=== PATIENT | male | born 1965 | race Caucasian/White ===

== ENCOUNTER → 2016-12-02 | Outpatient (REF) | payer OTHER ==
[2016-12-02 12:55] LABS: ALBUMIN 3.9 GM/DL (3.2-5.2); ALBUMIN/GLOBULIN RATIO 1.05 (1.00-1.93); ALKALINE PHOSPHATASE 72 U/L (45-117); ALT/SGPT 169 U/L (12-78); ANION GAP 9 MEQ/L (8-16); AST/SGOT 74 U/L (15-37); BILIRUBIN,DIRECT 0.1 MG/DL (0.0-0.2); BILIRUBIN,TOTAL 0.4 MG/DL (0.2-1.0); BLOOD UREA NITROGEN 21 MG/DL (7-18); CALCIUM LEVEL 9.2 MG/DL (8.5-10.1); CARBON DIOXIDE LEVEL 26 MEQ/L (21-32); CHLORIDE LEVEL 105 MEQ/L (98-107); CHOLESTEROL LEVEL 132 MG/DL (<200); CREATININE FOR GFR 0.97 MG/DL (0.70-1.30); GLOMERULAR FILTRATION RATE > 60.0 (>56); GLUCOSE, FASTING 155 MG/DL (70-105); POTASSIUM SERUM 4.7 MEQ/L (3.5-5.1); SODIUM LEVEL 140 MEQ/L (136-145); TOTAL PROTEIN 7.6 GM/DL (6.4-8.2); TRIGLYCERIDES LEVEL 181 MG/DL (<150)
== END ==
LOC: M LABDRWAD 12:13
PROVIDERS: ATTEND Physician Assistant Medical
DX: E11.9 Type 2 diabetes mellitus without complications (principal); E78.2 Mixed hyperlipidemia

== ENCOUNTER → 2016-12-02 | Outpatient (REF) | payer OTHER ==
[2016-12-03 14:17] LABS: PSA TOTAL 0.5 ng/mL (0.0-4.0)
== END ==
LOC: M LABDRWAD 12:14
PROVIDERS: ATTEND Nurse Practitioner Family
DX: Z12.5 Encounter for screening for malignant neoplasm of prostate (principal)

== ENCOUNTER → 2017-03-31 | Outpatient (CLI) | payer BC, OTHER ==
--- NOTE | 2017-04-01 10:50 | SLEEPCENT ---
DATE OF STUDY: 03/31/2017 ORDERED BY: Georgette Leija NP Nocturnal polysomnography was performed for evaluation of sleep physiology in this patient with a history of excessive somnolence and nonrestorative sleep. 7 hours and 59 minutes of data were reviewed. There were 360 minutes of sleep identified. Sleep latency was prolonged at 41 minutes. Rapid eye movement (REM) latency was short at 42 minutes. Sleep architecture showed fragmentation. Progression was reasonably well maintained. There were 4 REM periods appreciated. Overall sleep efficiency was 75.9%. The patient's electrocardiogram (EKG) showed a sinus rhythm with an average heart rate of 78 beats per minute. Electroencephalogram (EEG) showed reasonably normal waveforms for awake and sleep. There were 242 respiratory events identified of 10 seconds in duration or greater for an apnea-hypopnea index of 40.3, 63 of these events were central in nature, the remaining were obstructive. The events were not related to sleep stage nor body posture. Arousals from respiratory events occurred 14.8 times per hour and oxygen desaturations were seen into the low 80s. There was minimal activity in the limb EMG and remaining measures of sleep physiology were normal. IMPRESSION: Obstructive sleep apnea syndrome (G47.33), apnea-hypopnea index 40.3. RECOMMENDATION: The patient should be encouraged to return to the sleep disorder center for pressure therapy. In the interim, alcohol and sedative avoidance should be practiced and caution exercised during the operation of motor vehicles.
== END ==
LOC: M SLEEP 19:38
PROVIDERS: ATTEND Nurse Practitioner Adult Health
DX: G47.30 Sleep apnea, unspecified (principal)

== ENCOUNTER → 2017-05-02 | Outpatient (CLI) | payer BC, OTHER ==
--- NOTE | 2017-05-06 23:46 | SLEEPCENT ---
DATE OF PROCEDURE: 05/02/2017 ORDERED BY: Georgette Leija Nocturnal polysomnography was performed for the titration of pressure therapy in this patient with obstructive sleep apnea syndrome, apnea-hypopnea index of 40.3. For testing, the patient was fit with a [employer] Simplus full face mask of medium size, 4 cm of water pressure were applied to the circuit and the lights were extinguished. 7 hours and 59 minutes of data were reviewed. There were 288 minutes of sleep identified. Sleep latency was prolonged at 53 minutes. Rapid eye movement (REM) latency was prolonged at 297 minutes. Sleep architecture improved late in the study with one REM period. Overall sleep efficiency was 61%. EKG showed a sinus rhythm with an average heart rate of 75 beats per minute. EEG showed reasonably normal waveforms for awake and sleep. Respiratory events were found best palliated with a continuous positive airway pressure (CPAP) of 8. CPAP tolerance was reasonably good. There was some limb activity, but arousals from limb events were few. IMPRESSION: Obstructive sleep apnea syndrome (G47.33). RECOMMENDATION: Nightly use of pressure therapy 8 cm of water. Copy To: Dr. Liu
== END ==
LOC: M SLEEP 19:19
PROVIDERS: ATTEND Nurse Practitioner Adult Health
DX: G47.33 Obstructive sleep apnea (adult) (pediatric) (principal)

== ENCOUNTER → 2017-11-25 | Outpatient (REF) | payer OTHER ==
[2017-11-25 12:48] LABS: ANION GAP 8 MEQ/L (8-16); BLOOD UREA NITROGEN 19 MG/DL (7-18); CALCIUM LEVEL 9.8 MG/DL (8.5-10.1); CARBON DIOXIDE LEVEL 27 MEQ/L (21-32); CHLORIDE LEVEL 104 MEQ/L (98-107); CREATININE FOR GFR 0.88 MG/DL (0.70-1.30); GLOMERULAR FILTRATION RATE > 60.0 (>56); GLUCOSE, FASTING 218 MG/DL (70-100); SODIUM LEVEL 139 MEQ/L (136-145)
[2017-11-25 12:52] LABS: POTASSIUM SERUM 5.4 MEQ/L (3.5-5.1)
[2017-11-25 13:18] LABS: MAU/CREAT RATIO 22.7 MCG/MG (0.0-30.0)
== END ==
LOC: M LABDRWAD 12:22
DX: E11.9 Type 2 diabetes mellitus without complications (principal)
CPT/HCPCS: 82043

== ENCOUNTER → 2018-03-27 | Outpatient (REF) | payer OTHER ==
[2018-03-27 13:12] LABS: ALBUMIN 4.2 GM/DL (3.2-5.2); ALBUMIN/GLOBULIN RATIO 0.98 (1.00-1.93); ALKALINE PHOSPHATASE 92 U/L (45-117); ALT/SGPT 233 U/L (12-78); ANION GAP 12 MEQ/L (8-16); AST/SGOT 143 U/L (7-37); BILIRUBIN,TOTAL 0.5 MG/DL (0.2-1.0); BLOOD UREA NITROGEN 14 MG/DL (7-18); CALCIUM LEVEL 9.5 MG/DL (8.5-10.1); CARBON DIOXIDE LEVEL 26 MEQ/L (21-32); CHLORIDE LEVEL 101 MEQ/L (98-107); CHOLESTEROL LEVEL 185 MG/DL (<200); CHOLESTEROL RISK RATIO 4.743 (<5); CREATININE FOR GFR 0.94 MG/DL (0.70-1.30); GLOMERULAR FILTRATION RATE > 60.0 (>56); GLUCOSE, FASTING 167 MG/DL (70-100); HDL CHOLESTEROL 39 MG/DL (>40); LDL CHOLESTEROL 100.4 MG/DL (<100); NON-HDL-C 146 MG/DL; POTASSIUM SERUM 5.1 MEQ/L (3.5-5.1); SODIUM LEVEL 139 MEQ/L (136-145); TOTAL PROTEIN 8.5 GM/DL (6.4-8.2); TRIGLYCERIDES LEVEL 228 MG/DL (<150)
[2018-03-27 15:03] LABS: ESTIMATED AVERAGE GLUCOSE 174 MG/DL (60-110); HEMOGLOBIN A1c 7.7 %
== END ==
LOC: M LAB REF 12:18
DX: E11.9 Type 2 diabetes mellitus without complications (principal); E78.2 Mixed hyperlipidemia
CPT/HCPCS: 80053

== ENCOUNTER → 2018-06-17 | Outpatient (CLI) | payer OTHER ==
[2018-06-17 19:27] LABS: ESTIMATED AVERAGE GLUCOSE 217 MG/DL (60-110); HEMOGLOBIN A1c 9.2 %
[2018-06-19 14:19] LABS: PSA TOTAL 0.4 ng/mL (0.0-4.0)
== END ==
LOC: M ADAMS 17:22
DX: Z12.5 Encounter for screening for malignant neoplasm of prostate (principal); E11.9 Type 2 diabetes mellitus without complications
CPT/HCPCS: 83036

== ENCOUNTER → 2018-09-18 | Outpatient (REF) | payer OTHER | LOC: M LABDRWAD 12:46 | PROVIDERS: ATTEND Nurse Practitioner Family | DX: E11.9 Type 2 diabetes mellitus without complications (principal) ==

== ENCOUNTER 2018-12-19 17:26 | Inpatient (IN) | payer BC, OTHER ==
[~2018-12-19] VITALS: Ht 167.6 cm; Wt 104.5 kg
[2018-12-19] MEDS ORDERED: ISOVUE-370 76% 100ML VIAL (Q9967) As Ordered ONE (17:38)
[2018-12-19] MEDS ORDERED: IRBE150T12 PO (17:41)
[2018-12-19] MEDS ORDERED: METF-699 PO (17:41)
[2018-12-19] MEDS ORDERED: SIMV20TA2 PO (17:41)
[2018-12-19] MEDS ORDERED: GLIP10TA6 PO (17:41)
[2018-12-19] MEDS ORDERED: NORV5TAB PO (17:41)
[2018-12-19] MEDS ORDERED: BYST5TAB2 PO (17:41)
[2018-12-19] MEDS ORDERED: PARO40TA3 PO (17:41)
[2018-12-19 17:42] LABS: BASO # 0.1 10^3/uL (0.0-0.2); BASO % 0.6 % (0.0-1.0); EOS # 0.2 10^3/uL (0.0-0.50); EOS % 1.1 % (0.0-3.0); HEMATOCRIT 35.8 % (42.0-52.0); HEMOGLOBIN 11.7 g/dl (13.5-17.5); LYMPH # 4.1 10^3/uL (1.5-4.5); LYMPH % 18.8 % (24.0-44.0); MEAN CORPUSCULAR HEMOGLOBIN 31.9 pg (27.0-33.0); MEAN CORPUSCULAR HGB CONC 32.7 g/dl (32.0-36.5); MEAN CORPUSCULAR VOLUME 97.5 fl (80.0-96.0); MONO # 1.6 10^3/uL (0.0-0.8); MONO % 7.3 % (0.0-5.0); NEUTROPHILS # 15.3 10^3/uL (1.8-7.7); PLATELET COUNT, AUTOMATED 239 10^3/uL (150-450); RED BLOOD COUNT 3.67 10^6/uL (4.30-6.10); WHITE BLOOD COUNT 21.5 10^3/uL (4.0-10.0)
[2018-12-19] MEDS ORDERED: NS 1,000 ML IV ONE ×2 (17:45)
[2018-12-19 17:49] LABS: ABG pH (ARTERIAL) 7.285 UNITS (7.350-7.450)
[2018-12-19 17:51] LABS: ABG BASE EXCESS -9.2 (-2.0-2.0); ABG HCO3 16.6 MEQ/L (22.0-26.0); ABG O2 SATURATION 98.3 % (95.0-99.0); ABG PARTIAL PRESSURE CO2 35.8 mmHg (35.0-45.0); ABG PARTIAL PRESSURE O2 130.2 mmHg (75.0-100.0); ABG STANDARD HCO3 17.1 MEQ/L (22.0-26.0); ABG TOTAL CO2 17.7 MEQ/L (22.0-29.0)
[2018-12-19 17:52] LABS: INR 1.06; PROTHROMBIN TIME 13.9 SECONDS (12.1-14.4)
[2018-12-19 17:53] LABS: PARTIAL THROMBOPLASTIN TIME 25.2 SECONDS (25.4-37.6)
--- NOTE | 2018-12-19 18:02 | REP ---
Clinical: Trauma . Comparison: None . Findings: The ventricles, sulci, and cisterns are normal in position and appearance. Velazco-white differentiation is maintained. No acute intracranial hemorrhage, mass/mass effect, pathology or trauma/injury. No evidence for acute infarction. No extra-axial fluid collection. Calvarium is intact. Paranasal sinuses and mastoid air cells are clear. Impression: No evidence for acute intracranial pathology or trauma/injury. Electronically Signed by Richard Anguiano MD 12/19/2018 05:53 P
--- NOTE | 2018-12-19 18:04 | REP ---
Clinical: Trauma. Technique: Axial noncontrast images from the skull base to the thoracic inlet with coronal and sagittal re-formations. Findings: Alignment is maintained and there is no evidence for acute fracture / compression injury or subluxation. Early moderate multilevel degenerative changes include early osteophyte formation with endplate sclerosis and minimal disc space narrowing primarily involving C2-3, and C5-6. Spinal canal is patent. Posterior elements and spinous processes are intact. Paravertebral soft tissues are normal. Impression: Early moderate multilevel degenerative changes. No acute fracture / compression injury or subluxation. Electronically Signed by Richard Anguiano MD 12/19/2018 05:55 P
[2018-12-19 18:07] LABS: ALBUMIN 3.4 GM/DL (3.2-5.2); ALT/SGPT 152 U/L (12-78); AMYLASE 52 U/L (25-115); BILIRUBIN,DIRECT < 0.1 MG/DL (0.0-0.2); BILIRUBIN,TOTAL 0.3 MG/DL (0.2-1.0); BLOOD UREA NITROGEN 23 MG/DL (7-18); CALCIUM LEVEL 8.9 MG/DL (8.5-10.1); CARBON DIOXIDE LEVEL 22 MEQ/L (21-32); CHLORIDE LEVEL 97 MEQ/L (98-107); CPK CREATINE PHOSPHOKINASE 312 U/L (39-308); CREATININE FOR GFR 1.84 MG/DL (0.70-1.30); ETHYL ALCOHOL (ETHANOL) < 0.003 % (0.000-0.010); GLOMERULAR FILTRATION RATE 41.2 (>56); GLUCOSE, FASTING 657 MG/DL (70-100); LIPASE 300 U/L (73-393); MB/CK RELATIVE INDEX 1.83 (< OR =4); POTASSIUM SERUM 4.7 MEQ/L (3.5-5.1); SODIUM LEVEL 134 MEQ/L (136-145); TOTAL PROTEIN 6.4 GM/DL (6.4-8.2); TROPONIN I < 0.02 NG/ML (< 0.10)
[2018-12-19] MEDS ORDERED: HumuLIN R (REGULAR) INSULIN (NovoLIN R) **100U/ML** PER UNIT As Ordered ONE ×2 (18:15→19:40)
[2018-12-19] MEDS ORDERED: fentaNYL 100 MCG/2 ML INJECTION (J3010) IV ONE (18:15)
[2018-12-19] MEDS ORDERED: HumuLIN R (REGULAR) INSULIN (NovoLIN R) **100U/ML** PER UNIT IV ONE (18:15)
--- NOTE | 2018-12-19 18:17 | REP ---
Clinical: Trauma. Technique: Axial contrast enhanced images from the thoracic inlet to the upper abdomen coronal and sagittal re-formations using 100 ml Isovue 370 intravenous contrast material. Findings: Multiple fractures of the left third through tenth rib are identified. A small left pleural reaction is noted without pneumothorax along with trace early bibasilar atelectasis. Mediastinum demonstrates normal thoracic aorta, pulmonary vasculature and heart/pericardium without evidence for injury. Atherosclerotic disease to the coronary arteries noted. No cardiomegaly or pericardial effusion. No adenopathy. Limited upper abdomen demonstrates a fractured spleen with moderate visualized hemoperitoneum. Impression: 1. Left third to tenth rib fractures with multiple ribs fracture in multiple places. No associated pneumothorax. 2. Minimal bibasilar atelectasis and small left pleural reaction. 3. Upper abdomen demonstrates fractured spleen and moderate hemoperitoneum. Electronically Signed by Richard Anguiano MD 12/19/2018 06:08 P
[2018-12-19] MEDS ORDERED: ceFAZolin 1GM INJ (J0690 PER 500MG) As Ordered ONE (18:24)
--- NOTE | 2018-12-19 18:26 | REP ---
Clinical: Trauma. Technique: Axial contrast enhanced images from the lung bases to the pubic symphysis coronal and sagittal re-formations using 100 ml Isovue 370 intravenous contrast material. Findings: Left sixth through ninth rib fractures are identified with minimal basilar atelectasis. Grade 3 fractured spleen is appreciated with arterial laceration and obvious extravasation of contrast. Moderate hemoperitoneum is appreciated. A small subcapsular hematoma is identified along the posterior aspect of the left kidney. Fatty infiltration to the liver without obvious injury. Pancreas, gallbladder, bilateral adrenal glands and right kidney appear relatively normal. 1.2 cm right renal hypodensity likely represents cyst. The enteric system is without obstruction or obvious acute injury and no evidence for acute inflammatory process. Normal terminal ileum and appendix are identified in the right lower quadrant. Pelvis demonstrates normal bladder and age appropriate prostate/seminal vesicles. Abdominal aorta without evidence for injury or aneurysm/dissection. Fracture of the right L1 transverse process is identified along with the above mentioned left rib fractures. Impression: 1. Fractured spleen with arterial laceration and contrast extravasation along with moderate hemoperitoneum. 2. Small subcapsular hematoma along the posterior aspect of the left kidney. 3. Right L1 transverse process fracture and multiple multipartite left rib fractures. Electronically Signed by Richard Anguiano MD 12/19/2018 06:16 P
[2018-12-19] MEDS ORDERED: SUCCINYLCHOLINE 100 MG/5 ML SYRINGE (J0330) As Ordered ONE (18:27)
[2018-12-19] MEDS ORDERED: ROCURONIUM BROMIDE 50 MG/5 ML VIAL As Ordered ONE ×2 (18:27→20:19)
[2018-12-19] MEDS ORDERED: LIDOCAINE 2% INJ 100 MG/5 ML SDV (FOR ANES.) As Ordered ONE (18:27)
[2018-12-19] MEDS ORDERED: METOCLOPRAMIDE INJ 10MG/2ML VIAL (J2765) As Ordered ONE (18:27)
[2018-12-19] MEDS ORDERED: ONDANSETRON 4MG/2ML VIAL (J2405) As Ordered ONE ×2 (18:27→18:53)
[2018-12-19] MEDS ORDERED: MIDAZOLAM INJ 2 MG/2 ML VIAL (J2250) As Ordered ONE ×6 (18:27→23:48)
[2018-12-19] MEDS ORDERED: PROPOFOL 200 MG/20 ML VIAL As Ordered ONE (18:27)
[2018-12-19] MEDS ORDERED: fentaNYL 250 MCG/5 ML INJECTION (J3010) As Ordered ONE (18:27)
[2018-12-19] MEDS ORDERED: HEPARIN SOD (PORCINE) 5000 UNITS/ML VIAL As Ordered ONE ×2 (18:28→19:16)
[2018-12-19] MEDS ORDERED: TRUL0.5I SC (18:29)
[2018-12-19] MEDS ORDERED: ECOT81TA5 PO (18:29)
[2018-12-19] MEDS ORDERED: GLIP10TA18 PO (18:29)
--- NOTE | 2018-12-19 18:39 | HPEPDOC ---
General Surgery H&P Date of Admission Dec 19, 2018 Attending Physician: ELLIE MOELLER MD History and Physical CHIEF COMPLAINT: Trauma, fall from a ladder HISTORY OF PRESENT ILLNESS: Patient is brought emergently to our ER after falling from a ladder on his left side while cutting a tree. Event was witnessed. No loss of consciousness. patient complains of left side abdominal and chest pain. ALLERGIES: Please see below. HOME MEDICATIONS: Please see below. PAST MEDICAL HISTORY: 1. Diabetes. 2. hypercholesterolemia 3. Obstructive sleep apnea on CPAP. PAST SURGICAL HISTORY: 1. Tooth extractions PERSONAL/SOCIAL HISTORY: Patient quit smoking several years ago. REVIEW OF SYSTEMS: Patient was on his usual state of health prior to the trauma. PHYSICAL EXAMINATION: VITAL SIGNS: Please see below. GENERAL APPEARANCE: Pale-appearing, diaphoretic clammy skin. Awake, alert, oriented. HEENT: Pale palpebral conjunctiva lips dry.. CHEST: Shallow respiratory efforts. No flail chest. Faint chest wall contusion. NECK: Supple. No thyromegaly. No lymphadenopathies. No tenderness at the midline LUNGS: Lung sounds are clear to auscultation bilaterally. No wheezing appreciated. HEART: Mild tachycardia, regular rhythm ABDOMEN: Moderately rounded, quiet, generalized tenderness most prominent on the left side SKIN: Cool, , clammy EXTREMITIES: Small scattered left arm bruising and contusion NEUROLOGICAL: Awake. Patient aware of the events answers appropriately. Moves all extremities equally. ANCILLARIES: . LABORATORY DATA: Please see below. MICROBIOLOGY: Please see below. IMAGING: CT head No evidence for acute intracranial pathology or trauma/injury. CT C-spine Early moderate multilevel degenerative changes. No acute fracture / compression injury or subluxation. CT chest 1. Left third to tenth rib fractures with multiple ribs fracture in multiple places. No associated pneumothorax. 2. Minimal bibasilar atelectasis and small left pleural reaction. 3. Upper abdomen demonstrates fractured spleen and moderate hemoperitoneum. CT abdomen and pelvis 1. Fractured spleen with arterial laceration and contrast extravasation along with moderate hemoperitoneum. 2. Small subcapsular hematoma along the posterior aspect of the left kidney. 3. Right L1 transverse process fracture and multiple multipartite left rib fractures. IMPRESSION AND PLAN: Blunt Trauma from fall from ladder hemodynamic instability from ruptured spleen with evidence of active extravasation small subcapsular left renal contusion multiple rib fractures Patient needs to be brought to the OR emergently for exploratory laparotomy given his hemodynamic instability, evidence of active arterial bleeding on CT. Given his presentation, the degree of damage in the spleen. The radiologist read this as grade 3 laceration though I could not see any further piece left except the hilum of the spleen. There are multiple points of active extra visitation which arterial bleeding and a lot of of hemoperitoneum, I do not think he qualifies for conservative nonoperative therapy. He is being given blood as the operating room is preparing for surgery. Have advised his that there is a small possibility that he may need prolonged ventilation depending on how he is doing hemodynamically given also the presence of multiple rib fractures. Certainly the most likely will need some input and 8 from our motor analyst crystal lubin on.. Vital Signs Vital Signs Date Time Temp Pulse Resp B/P (MAP) Pulse Ox O2 Delivery O2 Flow Rate FiO2 12/19/18 18:07 96.1 12/19/18 17:28 109 16 95/58 98 Nasal Cannula 2.0 Laboratory Data Labs 24H Laboratory Tests 2 12/19/18 17:32: Immature Granulocyte % (Auto) 1.2, White Blood Count 21.5H, Red Blood Count 3.67L, Hemoglobin 11.7L, Hematocrit 35.8L, Mean Corpuscular Volume 97.5H, Mean Corpuscular Hemoglobin 31.9, Mean Corpuscular Hemoglobin Concent 32.7, Red Cell Distribution Width 12.0, Platelet Count 239, Neutrophils (%) (Auto) 71.0H, Lymphocytes (%) (Auto) 18.8L, Monocytes (%) (Auto) 7.3H, Eosinophils (%) (Auto) 1.1, Basophils (%) (Auto) 0.6, Neutrophils # (Auto) 15.3H, Lymphocytes # (Auto) 4.1, Monocytes # (Auto) 1.6H, Eosinophils # (Auto) 0.2, Basophils # (Auto) 0.1, Nucleated Red Blood Cells % (auto) 0.0, Prothrombin Time 13.9, Prothromb Time International Ratio 1.06, Activated Partial Thromboplast Time 25.2L, Anion Gap 15, Glomerular Filtration Rate 41.2L, Calcium Level 8.9, Aspartate Amino Transf (AST/SGOT) 110H, Alanine Aminotransferase (ALT/SGPT) 152H, Alkaline Phosphatase 78, Total Bilirubin 0.3, Direct Bilirubin < 0.1, Total Creatine Kinase 312H, Creatine Kinase MB 6.0H, Creatine Kinase MB Relative Index 1.83, Troponin I < 0.02, Total Protein 6.4, Albumin 3.4, Albumin/Globulin Ratio 1.13, Amylase Level 52, Lipase 300, Ethyl Alcohol Level < 0.003 12/19/18 17:40: Blood Gas Bicarbonate Standard 17.1L, Arterial Blood pH 7.285L, Arterial Blood Partial Pressure CO2 35.8, Arterial Blood Partial Pressure O2 130.2H, Arterial Blood Total CO2 17.7L, Arterial Blood HCO3 16.6L, Arterial Blood Base Excess - 9.2L, Arterial Blood Oxygen Saturation 98.3 CBC/BMP Laboratory Tests 12/19/18 17:32 Red Blood Count 3.67 L, Mean Corpuscular Volume 97.5 H, Mean Corpuscular Hemoglobin 31.9, Mean Corpuscular Hemoglobin Concent 32.7, Red Cell Distribution Width 12.0, Neutrophils (%) (Auto) 71.0 H, Lymphocytes (%) (Auto) 18.8 L, Monocytes (%) (Auto) 7.3 H, Eosinophils (%) (Auto) 1.1, Basophils (%) (Auto) 0.6, Neutrophils # (Auto) 15.3 H, Lymphocytes # (Auto) 4.1, Monocytes # (Auto) 1.6 H, Eosinophils # (Auto) 0.2, Basophils # (Auto) 0.1 Home Medications Scheduled Amlodipine Besylate (Norvasc) 5 Mg Tablet, 5 MG PO DAILY, (Reported) Amoxicillin/Potassium Clav (Amox-Clav ER 1,000-62.5 mg Tab) 1 Each Tab.er.12h, 1 TAB PO BID Aspirin (Ecotrin) 81 Mg Tablet.dr, 81 MG PO DAILY, (Reported) Dulaglutide (Trulicity) 1.5 Mg/0.5 Ml Pen.injctr, 1.5 MG SC QWEEK, (Reported) MONDAYS Glipizide (Glipizide ER) 10 Mg Tab.er.24, 10 MG PO DAILY, (Reported) Insulin Detemir (Levemir) 100 Unit/1 Ml Vial, 10 UNITS SC QHS Irbesartan (Irbesartan) 150 Mg Tablet, 150 MG PO QHS, (Reported) Metformin HCl (Metformin ER Gastric) 500 Mg [id number], 500 MG PO BID, (Reported) Nebivolol HCl (Bystolic) 5 Mg Tablet, 5 MG PO DAILY, (Reported) Paroxetine HCl (Paroxetine) 40 Mg Tablet, 40 MG PO DAILY, (Reported) Simvastatin (Simvastatin) 20 Mg Tablet, 20 MG PO QHS, (Reported) Scheduled PRN Ketorolac Tromethamine (Ketorolac Tromethamine) 10 Mg Tablet, 1 TAB PO Q6HP PRN for pain Oxycodone/Acetaminophen (Oxycodone-Acetaminophen 5-325) 1 Each Tablet, 1-2 TAB PO Q4HP PRN for SEVERE PAIN (PS 8-10) Allergies Coded Allergies: No Known Allergies (Unverified , 12/19/18) A-FIB/CHADSVASC A-FIB History Current/History of A-Fib/PAF?: No Current PO Anticoag Therapy: No ELLIE MOELLER MD Dec 19, 2018 18:39
[2018-12-19] MEDS ORDERED: dexameTHASONE 4 MG/ML 1ML VIAL (J1100) As Ordered ONE (18:53)
[2018-12-19] MEDS ORDERED: VASOPRESSIN INJ 20 UNITS/ML VIAL As Ordered ONE (19:17)
[2018-12-19] MEDS ORDERED: PHENYLephrine HCL 500 MCG/5 ML (100MCG/ML) SYRINGE (J2370) As Ordered ONE (20:47)
[2018-12-19] MEDS ORDERED: LR 1,000 ML IV SCH ×2 (21:27→23:00)
--- NOTE | 2018-12-19 21:27 | POST-OPPD ---
Postoperative Procedure Note Date Of Procedure: Dec 19, 2018 PREOPERATIVE DIAGNOSIS: traumatic fall, splenic rupture POSTOPERATIVE DIAGNOSIS: same FINDINGS: moderate hemoperitoneum, spleen broken in 3 areas PROCEDURE: Exploratory Laparotomy, Splenectomy SURGEON: Patrick Novoa MD CENTRAL STERILE TECHNICIAN: piotr Altamirano (MSIII) ANESTHESIA: General Anesthesia SPECIMENS: spleen ESTIMATED BLOOD LOSS: 2000 mL REPLACED: 3500 mL IVF, 4 u prbc, 1 u FFP, 441 mLs from cell saver DRAINS: 19 Joshua Drain to splenic bed COMPLICATIONS: remains intubated POSTOPERATIVE CONDITION: stable but critical URINE OUTPUT: 350 mLs PATRICK NOVOA MD Dec 19, 2018 21:27
[2018-12-19] MEDS ORDERED: ONDANSETRON 4MG/2ML VIAL (J2405) IV PRN ×2 (21:30→23:00)
[2018-12-19] MEDS ORDERED: MORPHINE 4 MG/ML 1ML VIAL/SYRINGE (J2270) IV PRN ×2 (21:30)
[2018-12-19] MEDS ORDERED: PROPOFOL 1,000 MG/100 ML VIAL As Ordered ONE (21:33)
[2018-12-19 21:35] VITALS: O2SAT 99
[2018-12-19] MEDS: PROPOFOL 1,000 MG in APPROPRIATE DILUENT 1 EA IV SCH (21:45)
[2018-12-19] MEDS ORDERED: HumaLOG INSULIN (NovoLOG) PER UNIT As Ordered ONE (21:46)
[2018-12-19 21:53] LABS: ABG BASE EXCESS -5.3 (-2.0-2.0); ABG HCO3 22.3 MEQ/L (22.0-26.0); ABG O2 SATURATION 97.9 % (95.0-99.0); ABG PARTIAL PRESSURE CO2 52.4 mmHg (35.0-45.0); ABG PARTIAL PRESSURE O2 113.1 mmHg (75.0-100.0); ABG STANDARD HCO3 20.1 MEQ/L (22.0-26.0); ABG TOTAL CO2 23.9 MEQ/L (22.0-29.0); ABG pH (ARTERIAL) 7.246 UNITS (7.350-7.450)
[2018-12-19 21:56] LABS: INR 1.19; PROTHROMBIN TIME 15.3 SECONDS (12.1-14.4)
[2018-12-19 21:57] LABS: FIBRINOGEN 214 MG/DL (221-452); PARTIAL THROMBOPLASTIN TIME 20.9 SECONDS (25.4-37.6)
[2018-12-19] MEDS ORDERED: fentaNYL 100 MCG/2 ML INJECTION (J3010) As Ordered ONE (22:03)
[2018-12-19] MEDS: MIDAZOLAM INJ 2 MG/2 ML VIAL (J2250) IV PRN ×3 (22:12→22:45)
[2018-12-19 22:16] LABS: D-DIMER QUANT > 4000 ng/ml (<500)
[2018-12-19] MEDS ORDERED: MEPERIDINE INJ 25 MG/ML VIAL (J2175) IV PRN (23:00)
[2018-12-19] MEDS ORDERED: PERCOCET 5MG/325MG TAB PO PRN (23:00)
[2018-12-19] MEDS ORDERED: fentaNYL 100 MCG/2 ML INJECTION (J3010) IV PRN (23:00)
[2018-12-19] MEDS ORDERED: METOCLOPRAMIDE INJ 10MG/2ML VIAL (J2765) IV PRN (23:00)
[2018-12-20] VITALS (77 sets, daily range): BP systolic 63–168; BP diastolic 39–82; O2SAT 93
[2018-12-20] MEDS: MIDAZOLAM INJ 2 MG/2 ML VIAL (J2250) IV PRN ×5 (00:05→22:00)
[2018-12-20] MEDS: INSULIN HUMAN REGULAR 100 UNITS in NS 99 ML IV SCH ×4 (00:14→21:40)
[2018-12-20] MEDS ORDERED: PHENYLEPHRINE INJ 10MG/ML VIAL (J2370) As Ordered ONE (00:15)
[2018-12-20 00:23] LABS: ACETONE/KETONE 2.92 MG/DL (<2.81); CALCIUM LEVEL 9.6 MG/DL (8.5-10.1); CREATININE FOR GFR 1.57 MG/DL (0.70-1.30); GLOMERULAR FILTRATION RATE 49.4 (>56); MAGNESIUM LEVEL 2.1 MG/DL (1.8-2.4); PHOSPHORUS LEVEL 6.1 MG/DL (2.5-4.9)
[2018-12-20 00:24] LABS: ABG BASE EXCESS -7.4 (-2.0-2.0); ABG HCO3 19.1 MEQ/L (22.0-26.0); ABG PARTIAL PRESSURE CO2 42.5 mmHg (35.0-45.0); ABG PARTIAL PRESSURE O2 101.9 mmHg (75.0-100.0); ABG STANDARD HCO3 18.5 MEQ/L (22.0-26.0); ABG TOTAL CO2 20.4 MEQ/L (22.0-29.0); ABG pH (ARTERIAL) 7.271 UNITS (7.350-7.450)
[2018-12-20] MEDS: NOREPINEPHRINE BITARTRATE 8 MG in D5W 492 ML IV SCH ×2 (00:52→06:16)
[2018-12-20] MEDS ORDERED: VASOPRESSIN INJ 20 UNITS/ML VIAL As Ordered ONE (01:02)
[2018-12-20] MEDS: NS 1,000 ML IV SCH ×3 (01:13→11:43)
[2018-12-20] MEDS: PIPERACILLIN/TAZOBACTAM SOD 3.375 GM in D5W MINI-BAG PLUS 50 ML IV SCH ×3 (01:13→15:36)
[2018-12-20] MEDS: PANTOPRAZOLE 40MG INJ (PROTONIX) (C9113) IV SCH ×2 (01:28→20:51)
[2018-12-20] MEDS: INSULIN IV RATE CHANGE DOCUMENTATION ML/HR XX SCH ×9 (01:32→22:52)
[2018-12-20] MEDS: fentaNYL 100 MCG/2 ML INJECTION (J3010) IV PRN ×4 (01:52→20:53)
[2018-12-20] MEDS ORDERED: NOREPINEPHRINE 4 MG/4 ML AMP ONE (02:13)
[2018-12-20] MEDS: PROPOFOL 1,000 MG in APPROPRIATE DILUENT 1 EA IV SCH ×5 (03:18→20:23)
[2018-12-20] MEDS: HEPARIN SOD (PORCINE) 5000 UNITS/ML VIAL SC SCH ×3 (05:28→21:13)
[2018-12-20] MEDS: VASOPRESSIN INJ 20 UNITS in NS 499 ML IV SCH ×2 (05:28→11:30)
[2018-12-20 05:45] LABS: BASO % 0.1 % (0.0-1.0); HEMATOCRIT 34.2 % (42.0-52.0); HEMOGLOBIN 11.6 g/dl (13.5-17.5); LYMPH # 1.5 10^3/uL (1.5-4.5); LYMPH % 10.8 % (24.0-44.0); MEAN CORPUSCULAR HEMOGLOBIN 31.1 pg (27.0-33.0); MEAN CORPUSCULAR HGB CONC 33.9 g/dl (32.0-36.5); MEAN CORPUSCULAR VOLUME 91.7 fl (80.0-96.0); MONO # 1.5 10^3/uL (0.0-0.8); NEUTROPHILS # 10.8 10^3/uL (1.8-7.7); NEUTROPHILS % 77.6 % (36.0-66.0); PLATELET COUNT, AUTOMATED 135 10^3/uL (150-450); RED BLOOD COUNT 3.73 10^6/uL (4.30-6.10); WHITE BLOOD COUNT 13.9 10^3/uL (4.0-10.0)
[2018-12-20 06:04] LABS: ABG BASE EXCESS -5.6 (-2.0-2.0); ABG HCO3 19.6 MEQ/L (22.0-26.0); ABG O2 SATURATION 98.7 % (95.0-99.0); ABG PARTIAL PRESSURE O2 153.1 mmHg (75.0-100.0); ABG STANDARD HCO3 19.9 MEQ/L (22.0-26.0); ABG TOTAL CO2 20.7 MEQ/L (22.0-29.0); ABG pH (ARTERIAL) 7.341 UNITS (7.350-7.450)
[2018-12-20 06:13] LABS: BLOOD UREA NITROGEN 25 MG/DL (7-18); CALCIUM LEVEL 8.8 MG/DL (8.5-10.1); CARBON DIOXIDE LEVEL 23 MEQ/L (21-32); CHLORIDE LEVEL 108 MEQ/L (98-107); CREATININE FOR GFR 1.81 MG/DL (0.70-1.30); GLUCOSE, FASTING 307 MG/DL (70-100); SODIUM LEVEL 143 MEQ/L (136-145)
--- NOTE | 2018-12-20 06:35 | ROOPDOC ---
[facility] Report Of Operation Report of Operation DATE OF PROCEDURE: 12/19/18 PREOPERATIVE DIAGNOSIS: traumatic fall, splenic rupture POSTOPERATIVE DIAGNOSIS: same FINDINGS: moderate hemoperitoneum, spleen broken in 3 areas PROCEDURE: Exploratory Laparotomy, Splenectomy SURGEON: Patrick Novoa MD VIDEO GAMES STORYWRITER: piotr Altamirano (MSIII) ANESTHESIA: General Anesthesia SPECIMENS: spleen ESTIMATED BLOOD LOSS: 2000 mL REPLACED: 3500 mL IVF, 4 u prbc, 1 u FFP, 441 mLs from cell saver DRAINS: 19 Joshua Drain to splenic bed COMPLICATIONS: remains intubated POSTOPERATIVE CONDITION: stable but critical URINE OUTPUT: 350 mLs DESCRIPTION OF PROCEDURE: Patient is brought emergently to the operating room. He was hemodynamically labile. Hypotension on presentation to the ER from splenic rupture resulting from a fall roughly about 12 feet in height on his left side along with other injuries including multiple rib fractures. He received IV fluids as a bolus as well as blood transfusion seemed packed RBCs in the rapid transfuser with a good response hemodynamically. He is in a lot of pain. He received a dose of Ancef 2 g IV preoperatively for wound prophylaxis. He was brought to the operating room placed supine on the table, compression boots placed on his lower extremities for DVT prophylaxis. Gen. anesthesia was started. He was placed on vasopressors for pressure support we continued brisk IV fluid hydration as well as blood transfusions per our massive transfusion protocol. His abdomen was prepped and draped in usual sterile fashion. We paused for a surgical timeout using both pre-incision safety checklist to verify correct patient, procedure site and additional clinical information prior to beginning the procedure. With everybody aware, I made a generous midline incision starting from the just below the xiphisternum to about 4-5 cm below the umbilicus to cystoscopically deepened through to the multiple areas of the abdomen including the subcutaneous tissue and anterior fascia. The posterior fascia and peritoneum was opened up under direct vision and enlarged throughout the whole of the skin incision. With entry into the abdomen gross blood was suctioned off using the Cell Saver. I quickly packed the left upper quadrant and maintained traction on the abdominal wall to act as a template for anesthesia to catch up hemodynamically. Once anesthesia was caught up we began our abdominal exploration. I have previously set up the Bookwalter were patient's upper abdomen. Self-retaining retractors were placed to help with visualization. I continued to place laparotomy packs into the left upper quadrant especially posteriorly to try to lift up the spleen into view. The patient has moderately thick omentum which was brought down. The gastrocolic ligament as well as the transverse colon was likewise brought down from the midline towards the splenic flexure enough to retracted away from view. I asked anesthesia to place a orogastric tube to decompress the stomach which was enlarged at this time. I didn't quickly try to work on the lower pole of the spleen freeing this up from its surrounding attachments posteriorly laterally and continued to change laparotomy packs and place it behind the spleen to lift it up on to a few. Once the lower pole was adequately mobilized I could view the spleen much better in the seems to have cracked in 3 places going towards the splenic hilum so the hilum itself seems to be intact. There were continues losing but no gross arterial bleeding at this time. I continued to work on the upper pole of the spleen freeing this up from its attachments towards the lateral abdominal wall as well as the diaphragm and the short gastrics as it goes near to the stomach. I encountered more bleeding at this time with some obvious bleeding from the within the spleen itself as well as from a blood vessel going towards the upper pole of the spleen. This was controlled with Cheyanne clamps. With the upper pole bleeding controlled I came back again to the lower pole has a try to free the posterior attachments of the spleen as well as its medial attachments to be able to get my hands around the hilum of the spleen. There was able to do this I cleared off the surrounding area and divided the splenic vessels in between hemostatic clamps as well as with the LigaSure device. The spleen was then removed. Copious irrigation was performed below for any obvious bleeding the clamp blood vessels were tied off with one Vicryl suture as well as large hemoclips. I then explored the rest of the abdomen there were no obvious injuries to the liver. I ran the small bowel from ligament of Treitz to the terminal ileum and found no bowel injury. I visualized the right colon, left colon, sigmoid colon and rectum and it did not find any obvious injuries to this area is. I was aware of a small contusion to the left kidney but there was no obvious enlarging hematoma on the left spleen. I then came back to the splenic bed. I sprayed Tisseel fibrin glue to the splenic bed and I left a 19 round Joshua drain coursing towards the splenic bed for postoperative monitoring. At this point patient has been hemodynamically improving. The abdomen was then closed using #1 double looped PDS in a running fashion. The saphenous tissue was irrigated and the skin was closed with dasha. The Joshua drain was secured to the skin with 2-0 silk Patient remain intubated. He was brought to the recovery room relatively hemodynamically stable. Attempt was brought out the Robert-Synephrine has been weaned off. He made some urine during the surgery but still looks concentrated. Counts of sponges and instruments were verified correct. PATRICK NOVOA MD Dec 20, 2018 06:35
[2018-12-20 06:39] LABS: PARTIAL THROMBOPLASTIN TIME 25.4 SECONDS (25.4-37.6)
[2018-12-20 06:43] LABS: INR 1.08; PROTHROMBIN TIME 14.1 SECONDS (12.1-14.4)
[2018-12-20 06:45] LABS: ALBUMIN 2.7 GM/DL (3.2-5.2); ALT/SGPT 166 U/L (12-78); BILIRUBIN,DIRECT < 0.1 MG/DL (0.0-0.2); BILIRUBIN,TOTAL 0.3 MG/DL (0.2-1.0); TOTAL PROTEIN 5.3 GM/DL (6.4-8.2)
--- NOTE | 2018-12-20 07:09 | REP ---
Clinical: Status post intubation. Comparison: 01/07/2006 Findings: Endotracheal tube 3.4 cm from the murtaza. Left subclavian catheter with tip in the SVC. Cardiac silhouette is normal. Minimal scattered atelectasis. Multiple left posterior rib fractures. Impression: ETT in satisfactory position. Trace scattered atelectasis. Electronically Signed by Richard Anguiano MD 12/20/2018 07:00 A
--- NOTE | 2018-12-20 07:38 | REP ---
Clinical: Foreign body. Technique: Single portable view of the abdomen and pelvis. Findings: A left upper quadrant surgical drain is appreciated. Surgical dasha are identified midline. Moderate amount of retained fecal material noted at the rectosigmoid. No foreign body. Impression: Postsurgical changes. No concerning foreign body identified. Electronically Signed by Richard Anguiano MD 12/20/2018 07:29 A
--- NOTE | 2018-12-20 07:44 | REP ---
Clinical: Status post intubation. Comparison: 12/19/2018 at 09:59 p.m. Findings: Endotracheal tube approximately 3 cm above the murtaza. Nasogastric tube courses into the left upper quadrant. Left basilar/retrocardiac atelectasis suggested. No obvious effusion. No obvious pneumothorax. Left posterior rib fractures again noted. Impression: 1. Endotracheal tube and nasogastric tube in satisfactory position. 2. Left lower lobe/retrocardiac atelectasis. Electronically Signed by Richard Anguiano MD 12/20/2018 07:36 A
[2018-12-20] MEDS: CHLORHEXIDINE GLUCONATE 0.12 % 15ML UDC (PERIDEX ORAL RINSE) MT SCH ×2 (07:51→20:51)
--- NOTE | 2018-12-20 08:49 | CCN ---
DATE: 12/20/2018 CRITICAL CARE PROGRESS NOTE The patient was seen and examined this morning during bedside rounds. Overnight the patient was persistently hypotensive, was requiring increasing doses of Levophed and was started on vasopressin in addition to the Levophed for blood pressure support. The patient also has been intermittently agitated overnight, is on propofol for sedation. He has been afebrile overnight. Peterson is in place and he is making urine. PHYSICAL EXAMINATION: Temperature 97.9, pulse 102, blood pressure 106/65, oxygen saturation (O2 sat) 98% on 30% FiO2. Intake (ins) 3.5 liters, output (outs) 2.6 liters. General: The patient is an obese male. He is intubated and sedated, is intermittently agitated on sedation but not following commands appropriately. HEENT: Normocephalic, atraumatic. Pupils are reactive to light. Mucous membranes are moist. Neck is supple. Trachea is midline. No jugular venous distention (JVD) appreciated. Cardiovascular: Regular rate and rhythm. Normal S1, S2. Unable to appreciate any murmurs. Pulmonary: Coarse ventilator breath sounds bilaterally. No wheezing or rhonchi. Abdomen is obese, soft, mildly distended. There is a midline incision with a dressing in place and a left-sided Akira-Talavera (KAITY) drain with sanguinous fluid. Extremities: There is no significant lower extremity edema bilaterally. LABORATORY DATA: WBC 13.9, hemoglobin 11.6, platelets 135. Chemistry: Sodium 143, potassium 5.0, chloride 108, bicarbonate 23, BUN 25, creatinine 1.81, glucose is 307. Repeat lactic acid trended down to 5.2, AST 151, ALT 166, alkaline phosphatase 42. ABG: pH 7.341, pCO2 of 37.0, pO2 of 153.1. Fibrinogen repeat increased to 336. INR is 1.08. IMAGING: Chest x-ray this morning shows endotracheal (ET) tube in position. There is a left internal jugular (IJ) subclavian line in place. There is evidence of some mild pulmonary vascular congestion and small left pleural effusion, and possible left lower lobe atelectasis. ASSESSMENT/PLAN: Mr. Razo is a 53-year-old male with a past medical history of diabetes, hyperlipidemia, obstructive sleep apnea (NGUYỄN) who presented after a fall from a ladder with landing on his left side. The patient complained of left-sided abdominal and chest pain. He was found to be in hemorrhagic shock secondary to a fractured spleen with an arterial laceration and evidence of hemoperitoneum. 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 Postoperatively the patient has been kept intubated and was transferred to the intensive care unit (ICU) for further management. The patient has been hypotensive despite adequate resuscitation, and he is requiring vasopressors for blood pressure support. Neurologic: Patient is intubated and is sedated. - Continue with propofol for sedation and would change morphine to fentanyl and continue with fentanyl as needed for pain control. - Would titrate sedation for a [place] of 2 to 3. - Will perform daily sedation vacations and weaning trials as tolerated. Cardiovascular: The patient presented initially with hemorrhagic shock secondary to bleeding from a splenic laceration. He received four units of packed red blood cells (PRBC) and one unit of fresh frozen plasma (FFP). His hemoglobin and hematocrit has remained stable, but the patient continues to be in shock and is requiring vasopressor support. - The patient is on max Levophed and vasopressin for his blood pressure. He was started on broad-spectrum antibiotics for possible septic shock. - His central venous oxygen saturation was checked and was normal at 84.6, making cardiogenic shock less likely and his CVP was elevated this morning - Will get ECHO given his persistent shock. - Lactic acid is trending down. Will continue to trend and monitor. Pulmonary: Patient was intubated for his exploratory laparotomy and was kept intubated post procedure. Pt has multiple left sided rib fractures but no evidence of pneumothorax - Continue with PRVC with vent settings of 430/23/30 and 5. - Continue with vent bundle care with head of bed elevation and chlorhexidine mouthwash. - Continue with daily ABGs and chest x-rays while intubated. cont monitor for pneumothorax - The patient's chest x-ray today shows evidence of some left pleural effusion and possible left lower lobe atelectasis. Would hold off on diuresis, however, given his hypotension. Will check a BNP. Infectious Disease: The patient had leukocytosis, possibly reactionary. However, he was also hypotensive, and there was concern for possible septic shock, possibly secondary to intraabdominal process given his hemoperitoneum. - Continue with Zosyn for now for broad spectrum antibiotics and follow up a procalcitonin. - Will followup blood culture results and will also check a sputum culture. Gastrointestinal (GI): The patient presented with acute splenic fracture with arterial laceration with hemoperitoneum as well as a left renal subcapsular hematoma. He is status post exploratory laparotomy and splenectomy on 12/19/2018. - Continue wound care and Akira-Talavera (KAITY) drain as per surgery. - He has some increased transaminitis likely due to his shock, which we will continue to monitor. - Orogastric (OG) tube is in place, continue to low wall intermittent suction and nothing by mouth for now. - The patient's hemoglobin and hematocrit has been stable. His fibrinogen has also improved. Will hold off on further blood products for now and continue to monitor for signs of active bleeding. Renal: Patient with acute kidney injury (CARIN) likely in the setting of his shock and hypovolemia. He is making urine and will continue to monitor his renal function and electrolytes. - Will renally dose medications. - hx DM and increased FSG. Patient had mildlt elevated beta hydroxybutyrate but no significant anion gap. cont with insulin drip and FSG checks and monitoring for development of an anion gap acidosis. Deep vein thrombosis (DVT) prophylaxis with heparin GI prophylaxis with Protonix. FULL CODE. Total critical care time spent not including any procedures: Approximately 40 minutes. MTDD
--- NOTE | 2018-12-20 08:58 | CR ---
DATE OF CONSULTATION: 12/19/2018 CRITICAL CARE CONSULT NOTE HISTORY OF PRESENT ILLNESS: History is obtained from the chart and collateral information. This patient is intubated and sedated and unable to provide a history. The patient is a 53 year-old male with a past medical history of diabetes, hyperlipidemia, obstructive sleep apnea (NGUYỄN) on continuous positive airway pressure (CPAP) who presented to the emergency department (ED) emergently after falling from a ladder when he was cutting a tree and landing on his left side. The event was witnessed and there was no reported loss of consciousness. On admission to the ED the patient was complaining of left-sided abdominal and chest pain. He was hypotensive on admission, appeared pale and diaphoretic. The patient was given a normal saline bolus. He was ordered for 2 liters and he was also started transfusion with packed red blood cells (PRBC) in the ED. The patient had imaging done of his CT abdomen and pelvis which showed evidence of a fractured spleen with arterial laceration and hemoperitoneum. He also had evidence of a left kidney subscapular hematoma. Given his hypotension and evidence of active arterial bleeding on CT the patient was taken to the operating room (OR) emergently for exploratory laparotomy. The patient had a splenectomy performed and postprocedure he was kept intubated and transferred to the intensive care unit (ICU) for further management. The patient received a total of 4 units of PRBC 1 unit of fresh frozen plasma (FFP) and an additional 1 liter normal saline bolus as well as started on maintenance fluids with lactated Ringer (LR) at 200 mL an hour. The patient also received 1 gram of cefazolin intraoperatively. In the recovery area the patient was initially on propofol as well as phenylephrine; however, he became more hypotensive and his sedation was held. The patient is opening his eyes and appears to be tracking, but is not fully following commands. PAST MEDICAL HISTORY and PAST SURGICAL HISTORY: 1. Diabetes. 2. Hyperlipidemia. 3. Obstructive sleep apnea (NGUYỄN) on continuous positive airway pressure (CPAP). 4. Tooth extractions SOCIAL HISTORY: The patient quit smoking several years ago. FAMILY HISTORY: Unable to obtain HOME MEDICATIONS: - Norvasc - glipizide - irbesartan - metformin - Bystolic - paroxetine - simvastatin ALLERGIES: No known drug allergies. PHYSICAL EXAMINATION: Vitals: Temperature is 96.5, pulse 89, respirations 22, blood pressure 95/65, O2 sat 100% on 50% FiO2. General: The patient is an obese male. He is intubated, not currently on sedation. He is opening eyes and tracking. HEENT: Normocephalic, atraumatic. Pupils are reactive to light bilaterally. Neck is supple. Trachea is midline and there is no palpable adenopathy. Cardiovascular: Regular rate and rhythm. Normal S1, S2. Unable to appreciate any murmurs. Pulmonary: There are coarse ventilated breath sounds bilaterally. No wheezes, no rhonchi or rales. There is mild crepitus noted on the left side of the chest. Abdomen is distended, soft. There is a dressing in the midline as well as a Akira-Talavera drain on the left side with sanguinous fluid in the bag. Extremities: There is no lower extremity edema noted bilaterally. Peripheral pulses are faint but palpable. LABORATORY DATA White blood cell (WBC) 21.5, hemoglobin 11.7, platelets was 239, repeat 1.38. Chemistry: Sodium is 134, potassium 4.7, chloride 97, bicarbonate 22, BUN 23, creatinine 1.84, glucose is 657, anion gap was 15, lactic acid 7.4, AST 110, ALT 152, alkaline phosphatase 78. Troponin was negative initially. Lipase is 300. INR is 1.19, fibrinogen 214. Arterial blood gas (ABG) was pH 7.246, pCO2 of 52.4, pO2 of 113.1. IMAGES: Head CT showed no evidence of acute intracranial pathology or trauma. Chest CT showed multiple fractures on his on his left side from the third to the tenth rib. There was no pneumothorax or pneumomediastinum noted. There is a small left pleural reaction and bibasilar atelectasis. CT abdomen and pelvis showed a fractured spleen with arterial laceration and arterial contrast extravasation with a moderate hemoperitoneum. There is a small subscapular hematoma on the posterior aspect of the left kidney. There is also a renal cyst. ASSESSMENT/PLAN: The patient is a 53-year-old male with a history of hypertension, diabetes, obstructive sleep apnea (NGUYỄN) who presented after a fall and landed on his left side and presented with complaints of left chest and abdominal pain. The patient was found to have multiple left-sided rib fractures but no evidence of pneumothorax or pneumomediastinum. He did have a left spleen laceration with arterial bleeding and was taken emergently to the operating room (OR) for exploratory laparotomy on 12/19/2018. The patient is status post splenectomy now and was kept intubated post surgery and transferred to the intensive care unit (ICU) for further management. Postoperatively the patient was hypotensive. He was initially on phenylephrine and then change to Levophed for additional blood pressure support. He did receive 4 units of packed red blood cells (PRBC) as well as 1 unit of fresh frozen plasma. Neuro: The patient is intubated and sedated. - Would continue with propofol for sedation and target a [place] of 2 to 3. - change morphine to fentanyl given renal dysfunction and cont prn dosing - Will perform a daily sedation vacation and weaning trials as tolerated. Cardiovascular: Patient with a history of hypertension. His initial troponins were negative. The patient was in hypovolemic shock secondary to bleeding from his splenic laceration. He was volume resuscitated with 4 units of PRBC as well as with 3 liters normal saline bolus. Postoperatively the patient was hypotensive requiring Levophed for blood pressure support. - Continue with Levophed to titrate a mean arterial pressure (MAP) above 65. His lactic acid was elevated at 7.04. - Will need to continue to trend lactic acid. - Continue with IVF, change LR to NS at 150ml/hr. Will check central venous pressure (CVP) now that he has a left subclavian line in place and check a central venous oxygen saturation. - Would repeat troponins. Pulmonary: The patient has a history of obstructive sleep apnea on continuous positive airway pressure (CPAP). He is intubated postoperatively. The patient's arterial blood gas (ABG) showed evidence of likely combined respiratory acidosis with a metabolic acidosis from his elevated lactic acid. Patient is on pressure-regulated volume control (PRVC). His respiratory rate was increased to 23 and TV increased to 430 with a positive end-expiratory pressure (PEEP) of four and we will wean down his FiO2 to 40%. Will repeat an arterial blood gas (ABG) 1 hour after these ventilator changes - continue with vent bundle care with head of bed elevation and chlorhexidine mouthwash - Continue with daily arterial blood gases (ABGs) and chest x-rays while intubated. Given his rib fractures there is concern for a pneumothorax but he does not have any evidence of pneumothorax on his repeat chest x-ray postoperatively. - If he has hypoxemia or increasing plateau pressures would be concerned for a left-sided pneumothorax and he would need a STAT chest x-ray at that time. IDENTIFICATION: The patient had leukocytosis on admission which may be reactive; however, he has been hypotensive postoperatively despite volume resuscitation. He may have possible sepsis given his hemoperitoneum. He did receive antibiotics intraoperatively but will continue with broad-spectrum antibiotic coverage with Zosyn. Will check cultures and a procalcitonin and de-escalate antibiotics as indicated. Renal. The patient has acute kidney injury (CARIN) likely due to his hypovolemia. He has a Peterson in place and he is having a decent urine output. Will continue to monitor his ins and outs. He also has history of diabetes and his glucose was significantly elevated on admission. He did receive insulin subcutaneous but we will check a beta hydroxybutyrate to see if there is a component of diabetic ketoacidosis (DKA). Will continue with fingerstick glucose checks every 2 hours and sliding scale coverage as needed for now pending results of his ketones. Will continue to monitor electrolytes and replete as needed. Gastrointestinal (GI): Patient with splenic laceration is status post exploratory laparotomy with splenectomy. Also noted to have a left kidney subscapular hematoma which is currently being monitored. - the patient will place an orogastric tube (OG tube) and keep to low wall intermittent suction for now. - AST, ALT is elevated likely in the setting of his shock. Will continue to monitor liver function tests (LFTs). Hematology. The patient had acute bleeding secondary to his splenic laceration. Is status post splenectomy and is status post 4 units of packed red blood cells (PRBC) and 1 unit of fresh frozen plasma. His INR is 1.19 and his platelets are trending down but still acceptable. Fibrinogen is borderline. Will repeat coagulation panel (coags) and fibrinogen to monitor if the patient will need any further blood products such as cryoprecipitate possibly. Deep vein thrombosis (DVT) prophylaxis as per surgery. FULL CODE. Total critical care time spent not including any procedures: Approximately 1 hour and 40 minutes. MTDD
[2018-12-20] MEDS ORDERED: NEBIVOLOL 5 MG TAB (BYSTOLIC) PO SCH (09:00)
[2018-12-20] MEDS ORDERED: amLODIPine 5 MG TAB PO SCH (09:00)
[2018-12-20 09:20] LABS: NT-PRO BNP 129 PG/ML (<125)
--- NOTE | 2018-12-20 10:00 | ROOPDOC ---
[facility] Report Of Operation Report of Operation DATE OF PROCEDURE: 12/19/18 PREPROCEDURE DIAGNOSES: Critically ill, hypovolemic shock. POSTPROCEDURE DIAGNOSES: Same. PROCEDURE: Insertion of left subclavian triple-lumen catheter. SURGEON: Patrick Novoa MD ANESTHESIA: Gen. anesthesia (patient was intubated and sedated at the time of the procedure. ESTIMATED BLOOD LOSS: Approximately 5 mL. COMPLICATIONS: None. REMARKS: 53-year-old male who just finished emergency abdominal exploration and splenectomy after a traumatic fall continues to be hypotensive in the recovery room. PROCEDURE NOTE: Postoperative chest x-ray done and reviewed. No pneumothorax. Adequate positioning of the catheter noted.. DESCRIPTION OF PROCEDURE: Her left neck, chest was prepped and draped in the usual sterile fashion. We used a prepackaged Central Line Bundle. Under ultrasound guidance, the location of the internal jugular vein was visualized anterior to the sternocleidomastoid muscle. Once this was localized the skin was infiltrated with 1% lidocaine. A subclavicular approach was used. The finder needle was carefully guided underneath the mid clavicle pointed towards the mid sternum until I was able to draw back clearly venous blood. The guidewire was threaded through the needle. Using modified Seldinger technique, a fascial dilator was used to enlarge the subcutaneous tract and a triple-lumen catheter was threaded through the guidewire to about 19 cm from the skin line. The guidewire was removed. All the ports were checked and noted to be aspirating and flushing well. The triple- lumen catheter was then secured to the skin with 3-0 nylon sutures. An antibiotic containing sterile clear dressing was placed at the wound exit site. A portable chest x-ray will be checked if the postop recovery area. PATRICK NOVOA MD Dec 20, 2018 10:00
--- NOTE | 2018-12-20 10:07 | ECGEPIP ---
[facility] - ED Test Date: 2018-12-19 Pat Name: CALIXTO WALKER Department: Room: [place] [address] Gender: Male Crook Operator: FANNY : 1965 Requested By: Lisa Jimenez Order Number: [id number] Reading MD: Lisa Jimenez Measurements Intervals [place] Rate: 109 P: 23 NC: 124 QRS: 66 QRSD: 94 T: 49 QT: 337 QTc: 456 Interpretive Statements SINUS TACHYCARDIA ABNORMAL RHYTHM ECG BORDERLINE PROLONGED QTC NONSPECIFIC ST T WAVE CHANGES NO OLD ECG Electronically Signed on 12-20-2018 10:06:39 EDT by Lisa Jimenez
[2018-12-20] MEDS: NOREPINEPHRINE BITARTRATE 16 MG in D5W 484 ML IV SCH (11:01)
--- NOTE | 2018-12-20 11:14 | ECHO ---
DATE OF PROCEDURE: 12/20/2018 REFERRING PHYSICIAN: Dr. Grimm. INDICATION: Hypotension/shock. HEIGHT: 165 cm. WEIGHT: 104 kg. DIMENSIONS: IVS: 1.0 LV: 3.4 LVPW: 1.1 LA: 2.9 Aorta: 3.3 IVC: 1.4 RV: 3.4 FINDINGS: The study is of rather limited technical quality. The patient is obese and is on pressors. Underlying rhythm is sinus tachycardia with ventricular rate between 100 and 110 beats per minute. Left ventricle is relatively small but it has hyperdynamic contractility. I estimate EF around 70-75%. Right ventricle was poorly seen but does not appear grossly enlarged. Left atrium is normal size. Right atrium was not well visualized. Aortic, mitral, tricuspid and pulmonic valves all appear normal based on somewhat limited views. No pericardial effusion is noted. Inferior vena cava is relatively small size and collapses completely with respiration indicative of either normal or even low central venous pressure. Aortic root is normal. Aortic arch and abdominal aorta were not seen. Doppler interrogation of the aortic valve reveals no stenosis or insufficiency. Same applies for mitral and tricuspid valves. There is trace pulmonic insufficiency. Mitral inflow pattern and tissue Doppler imaging of mitral annulus reveal probably grade 2 diastolic dysfunction but this is in setting of sinus tachycardia. CONCLUSIONS: 1. Study is of limited technical quality. 2. Relatively small LV size with hyperdynamic LV systolic function and probably grade 2 diastolic dysfunction. 3. No significant valvular disease. 4. Probably normal or low central venous pressure. 5. Unable to estimate pulmonary artery pressure. COMMENT: SBE prophylaxis is not recommended. This study rules out cardiogenic shock as the etiology of the patient's hypotension. MTDD
[2018-12-20] MEDS ORDERED: NS 500 ML IV ONE ×2 (11:15→17:00)
[2018-12-20 11:44] LABS: AMPHETAMINES LEVEL URINE NEGATIVE (NEGATIVE); BARBITURATES URINE NEGATIVE (NEGATIVE); BENZODIAZEPINES URINE POSITIVE (NEGATIVE); CANNABINOIDS URINE NEGATIVE (NEGATIVE); COCAINE METABOLITE URINE NEGATIVE (NEGATIVE); METHADONE URINE NEGATIVE (NEGATIVE); OPIATES URINE NEGATIVE (NEGATIVE); PHENCYCLIDINE URINE NEGATIVE (NEGATIVE)
[2018-12-20 17:29] LABS: CALCIUM LEVEL 8.2 MG/DL (8.5-10.1); CREATININE FOR GFR 1.75 MG/DL (0.70-1.30); GLOMERULAR FILTRATION RATE 43.6 (>56); POTASSIUM SERUM 4.1 MEQ/L (3.5-5.1)
[2018-12-20] MEDS ORDERED: GLUCAGON FOR INJ 1 MG VIAL (J1610) SC PRN (22:00)
[2018-12-20] MEDS ORDERED: DEXTROSE 50% 50 ML SYRINGE IV PRN (22:00)
[2018-12-20] MEDS ORDERED: GLUCOSE 4 GM CHEW TABLET PO PRN (22:00)
--- NOTE | 2018-12-20 23:03 | IPNPDOC ---
Subjective General Date/Time Seen The patient was seen on 12/20/18 at 10:00. Subject Chief Complaint/History The patient is a 53-year-old male admitted with a reason for visit of Trauma; Spenic Rupture. Patient seen and examined. I discussed his overnight course with his nurse and also with Dr. Grimm. He continues to be hypotensive requiring vasopressors support though she had made some gain ways with being able to tolerate removal of the vasopressin. He seems to be making clear, on concentrated urine. He had periods of agitation last night and seems to be moving all extremities. He remains on propofol sedation. Current Medications Current Medications Current Medications Amlodipine Besylate (Norvasc) 5 mg DAILY PO ; Start 12/20/18 at 09:00; Stop 12/20/18 at 09:00; Status DC Chlorhexidine Gluconate (Peridex Oral Rinse) SWAB/BRUSH ORAL CAVITY BID MT Last administered on 12/20/18at 07:51; Start 12/20/18 at 09:00 Fentanyl Citrate (Sublimaze) 25 mcg Q1HP PRN IV PAIN Last administered on 12/20/18at 01:52; Start 12/20/18 at 01:00 Fentanyl Citrate (Sublimaze) 25 mcg Q5MP PRN IV MODERATE PAIN (PS 4-7) Last administered on 12/19/18at 23:27; Start 12/19/18 at 23:00; Stop 12/20/18 at 00:26; Status DC Heparin Sodium (Porcine) (Heparin) 5,000 units Q8H SC Last administered on 12/20/18at 05:28; Start 12/20/18 at 06:00 Home Med (Med Rec Complete!) ASDIRECTED XX ; Start 12/19/18 at 18:30; Stop 12/19/18 at 18:33; Status DC Insulin Human Regular 100 units/ Sodium Chloride 100 ml @ 13 mls/hr Q7H42M IV Last administered on 12/20/18at 09:08; Start 12/19/18 at 23:45 Lactated Ringer's 1,000 ml @ 100 mls/hr Q10H IV ; Start 12/19/18 at 23:00; Stop 12/20/18 at 00:00; Status DC Lactated Ringer's 1,000 ml @ 150 mls/hr Q6H40M IV ; Start 12/19/18 at 21:27; Stop 12/20/18 at 00:53; Status DC Meperidine HCl (Demerol) 12.5 mg Q5MP PRN IV SHIVERING; Start 12/19/18 at 23:00; Stop 12/20/18 at 00:30; Status DC Metoclopramide HCl (REGLAN INJection) 10 mg Q6HP PRN IV NAUSEA OR VOMITING; Start 12/19/18 at 23:00; Stop 12/20/18 at 00:30; Status DC Midazolam HCl (Versed) 2 mg Q15MP PRN IV SEDATION Last administered on 12/19/18at 22:45; Start 12/19/18 at 23:45 Morphine Sulfate (Morphine Sulfate Inj) 2 mg Q1HP PRN IV SEVERE PAIN (PS 8-10); Start 12/19/18 at 21:30; Stop 12/20/18 at 01:03; Status DC Morphine Sulfate (Morphine Sulfate Inj) 4 mg Q2HP PRN IV SEVERE PAIN (PS 8-10); Start 12/19/18 at 21:30; Stop 12/20/18 at 01:03; Status DC Nebivolol (Bystolic) 5 mg DAILY PO ; Start 12/20/18 at 09:00; Stop 12/20/18 at 09:00; Status DC Non-Formulary Medication (Insulin Iv Rate Change Documentation ml/ Hr) ASDIRECTED XX Last administered on 12/20/18at 08:42; Start 12/20/18 at 01:00; S top 01/19/19 at 00:59 Norepinephrine Bitartrate 16 mg/ Dextrose 500 ml @ 56 mls/hr Q8H56M IV ; Start 12/20/18 at 10:30 Norepinephrine Bitartrate 8 mg/ Dextrose 500 ml @ 112 mls/hr Q4H28M IV Last administered on 12/20/18at 06:16; Start 12/19/18 at 23:45; Stop 12/20/18 at 10:29 Ondansetron HCl (ZOFRAN INJection) 4 mg Q4HP PRN IV NAUSEA OR VOMITING; Start 12/19/18 at 23:00; Stop 12/20/18 at 00:30; Status DC Ondansetron HCl (ZOFRAN INJection) 4 mg Q6HP PRN IV NAUSEA OR VOMITING; Start 12/19/18 at 21:30 Oxycodone/ Acetaminophen (Percocet 5mg/ 325mg Tablet) 1 tab ASDIRECTED PRN PO MILD/MODERATE PAIN (PS 1-7); Start 12/19/18 at 23:00; Stop 12/20/18 at 00:30; Status DC Pantoprazole Sodium (Protonix) 40 mg DAILY@2100 IV Last administered on 12/20/18at 01:28; Start 12/19/18 at 21:00 Piperacillin Sod/ Tazobactam Sod 3.375 gm/Dextrose 50 ml @ 50 mls/hr Q8H IV Last administered on 12/20/18at 07:51; Start 12/20/18 at 00:00 Propofol 1000 mg/ IV Miscellaneous Supplies 100 ml @ 15.68 mls/ hr Q6H23M IV Last administered on 12/20/18at 08:26; Start 12/19/18 at 21:45 Sodium Chloride 1,000 ml @ 150 mls/hr Q6H40M IV Last administered on 12/20/18at 05:47; Start 12/20/18 at 01:00 Vasopressin 20 units/Sodium Chloride 500 ml @ 60 mls/hr Q8H20M IV Last administered on 12/20/18at 05:28; Start 12/20/18 at 01:00 Allergies Coded Allergies: No Known Allergies (Unverified , 12/19/18) Objective Physical Examination Examination GENERAL APPEARANCE: Remains intubated, sedated, with spontaneous movements. HEENT: Intubated. Nasogastric tube without much drainage. NECK: Supple, no thyromegaly. No obvious jugular venous distention. LUNGS: Clear to auscultation bilaterally. No wheezing appreciated. HEART: No chest wall abnormalities. Regular rate and rhythm with no murmurs appreciated. ABDOMEN: Abdomen is around, soft, mildly distended. Midline incision dressings are relatively dry, no drainage. KAITY drains are serosanguineous. EXTREMITIES: Mild lower extremity edema. Vital Signs Vital Signs Date Time Temp Pulse Resp B/P (MAP) Pulse Ox O2 Delivery O2 Flow Rate FiO2 12/20/18 09:51 99/55 (70) 12/20/18 09:37 103 23 96 30 12/20/18 08:05 97.6 12/20/18 03:18 Ventilator 12/19/18 17:28 2.0 I&Os I&O- Last 24 Hours up to 6 AM 12/20/18 06:00 Intake Total 6451.5 ml Output Total 3505 ml Balance 2946.5 ml Laboratory Data Labs 24H Laboratory Tests 2 12/19/18 17:32: Immature Granulocyte % (Auto) 1.2, White Blood Count 21.5H, Red Blood Count 3.67L, Hemoglobin 11.7L, Hematocrit 35.8L, Mean Corpuscular Volume 97.5H, Mean Corpuscular Hemoglobin 31.9, Mean Corpuscular Hemoglobin Concent 32.7, Red Cell Distribution Width 12.0, Platelet Count 239, Neutrophils (%) (Auto) 71.0H, Lymphocytes (%) (Auto) 18.8L, Monocytes (%) (Auto) 7.3H, Eosinophils (%) (Auto) 1.1, Basophils (%) (Auto) 0.6, Neutrophils # (Auto) 15.3H, Lymphocytes # (Auto) 4.1, Monocytes # (Auto) 1.6H, Eosinophils # (Auto) 0.2, Basophils # (Auto) 0.1, Nucleated Red Blood Cells % (auto) 0.0, Prothrombin Time 13.9, Prothromb Time International Ratio 1.06, Activated Partial Thromboplast Time 25.2L, Anion Gap 15, Glomerular Filtration Rate 41.2L, Calcium Level 8.9, Aspartate Amino Transf (AST/SGOT) 110H, Alanine Aminotransferase (ALT/SGPT) 152H, Alkaline Phosphatase 78, Total Bilirubin 0.3, Direct Bilirubin < 0.1, Total Creatine Kinase 312H, Creatine Kinase MB 6.0H, Creatine Kinase MB Relative Index 1.83, Troponin I < 0.02, Total Protein 6.4, Albumin 3.4, Albumin/Globulin Ratio 1.13, Amylase Level 52, Lipase 300, Ethyl Alcohol Level < 0.003 12/19/18 17:40: Blood Gas Bicarbonate Standard 17.1L, Arterial Blood pH 7.285L, Arterial Blood Partial Pressure CO2 35.8, Arterial Blood Partial Pressure O2 130.2H, Arterial Blood Total CO2 17.7L, Arterial Blood HCO3 16.6L, Arterial Blood Base Excess - 9.2L, Arterial Blood Oxygen Saturation 98.3 12/19/18 21:29: Anion Gap 12, Glomerular Filtration Rate 49.4L, Calcium Level 9.6, Blood Urea Nitrogen 24H, Creatinine 1.57H, Sodium Level 142#, Potassium Level 5.0, Chloride Level 106, Carbon Dioxide Level 24, Phosphorus Level 6.1H, Magnesium Level 2.1, B-Hydroxybutyrate 2.92H 12/19/18 21:32: Bedside Glucose (Misc Panel) 398H 12/19/18 21:38: Prothrombin Time 15.3H, Prothromb Time International Ratio 1.19, Activated Partial Thromboplast Time 20.9L, Fibrinogen 214L, D-Dimer, Quantitative > 4000H, Lactic Acid Level 7.4*H 12/19/18 21:40: Blood Gas Bicarbonate Standard 20.1L, Arterial Blood pH 7.246*L, Arterial Blood Partial Pressure CO2 52.4H, Arterial Blood Partial Pressure O2 113.1H, Arterial Blood Total CO2 23.9, Arterial Blood HCO3 22.3, Arterial Blood Base Excess - 5.3L, Arterial Blood Oxygen Saturation 97.9 12/19/18 23:07: Bedside Glucose (Misc Panel) 404H 12/20/18 00:10: Blood Gas Bicarbonate Standard 18.5L, Arterial Blood pH 7.271L, Arterial Blood Partial Pressure CO2 42.5, Arterial Blood Partial Pressure O2 101.9H, Arterial Blood Total CO2 20.4L, Arterial Blood HCO3 19.1L, Arterial Blood Base Excess - 7.4L, Arterial Blood Oxygen Saturation 97.0 12/20/18 00:11: Bedside Glucose (Misc Panel) 412H 12/20/18 00:28: Troponin I 0.02 12/20/18 01:14: Bedside Glucose (Misc Panel) 429H 12/20/18 01:19: Urine Color YELLOW, Urine Appearance HAZY, Urine pH 5.0, Urine Specific [place] 1.035, Urine Protein NEGATIVE, Urine Glucose (UA) 3+H, Urine Ketones NEGATIVE, Urine Blood 1+H, Urine Nitrite NEGATIVE, Urine Bilirubin NEGATIVE, Urine Urobilinogen 0.2, Urine Leukocyte Esterase NEGATIVE, Urine WBC (Auto) 3, Urine RBC (Auto) 5H, Urine Hyaline Casts (Auto) 0, Urine Bacteria (Auto) NEGATIVE, Urine Squamous Epithelial Cells 0, Urine Sperm (Auto) 12/20/18 02:46: Lactic Acid Followup at 4 Hours 5.2*H 12/20/18 03:14: Bedside Glucose (Misc Panel) 347H 12/20/18 04:31: Bedside Glucose (Misc Panel) 312H 12/20/18 05:34: Immature Granulocyte % (Auto) 0.5, White Blood Count 13.9H, Red Blood Count 3.73L, Hemoglobin 11.6L, Hematocrit 34.2L, Mean Corpuscular Volume 91.7, Mean Corpuscular Hemoglobin 31.1, Mean Corpuscular Hemoglobin Concent 33.9, Red Cell Distribution Width 13.6, Platelet Count 135L, Neutrophils (%) (Auto) 77.6H, Lymphocytes (%) (Auto) 10.8L, Monocytes (%) (Auto) 11.0H, Eosinophils (%) (Auto) 0.0, Basophils (%) (Auto) 0.1, Neutrophils # (Auto) 10.8H, Lymphocytes # (Auto) 1.5, Monocytes # (Auto) 1.5H, Eosinophils # (Auto) 0.0, Basophils # (Auto) 0.0, Nucleated Red Blood Cells % (auto) 0.0, Anion Gap 12, Glomerular Filtration Rate 42.0L, Calcium Level 8.8, Aspartate Amino Transf (AST/SGOT) 151H, Alanine Aminotransferase (ALT/SGPT) 166H, Alkaline Phosphatase 42L, Total Bilirubin 0.3, Direct Bilirubin < 0.1, CV-Upx-[id number]-Type Natriuretic Peptide 129H, Total Protein 5.3L, Albumin 2.7#L, Albumin/Globulin Ratio 1.04 12/20/18 05:54: Blood Gas Bicarbonate Standard 19.9L, Arterial Blood pH 7.341L, Arterial Blood Partial Pressure CO2 37.0, Arterial Blood Partial Pressure O2 153.1H, Arterial Blood Total CO2 20.7L, Arterial Blood HCO3 19.6L, Arterial Blood Base Excess - 5.6L, Arterial Blood Oxygen Saturation 98.7 12/20/18 06:01: Prothrombin Time 14.1, Prothromb Time International Ratio 1.08, Activated Partial Thromboplast Time 25.4, Fibrinogen 336 12/20/18 06:52: Bedside Glucose (Misc Panel) 272H 12/20/18 07:06: Central Line Venous O2 Saturation 84.6 12/20/18 08:38: Bedside Glucose (Misc Panel) 258H CBC/BMP Laboratory Tests 12/19/18 17:32 Red Blood Count 3.67 L, Mean Corpuscular Volume 97.5 H, Mean Corpuscular Hemoglobin 31.9, Mean Corpuscular Hemoglobin Concent 32.7, Red Cell Distribution Width 12.0, Neutrophils (%) (Auto) 71.0 H, Lymphocytes (%) (Auto) 18.8 L, Monocytes (%) (Auto) 7.3 H, Eosinophils (%) (Auto) 1.1, Basophils (%) (Auto) 0.6, Neutrophils # (Auto) 15.3 H, Lymphocytes # (Auto) 4.1, Monocytes # (Auto) 1.6 H, Eosinophils # (Auto) 0.2, Basophils # (Auto) 0.1 12/19/18 21:29 Calcium Level 9.6 12/19/18 21:38 12/20/18 05:34 Red Blood Count 3.73 L, Mean Corpuscular Volume 91.7, Mean Corpuscular Hemoglobin 31.1, Mean Corpuscular Hemoglobin Concent 33.9, Red Cell Distribution Width 13.6, Neutrophils (%) (Auto) 77.6 H, Lymphocytes (%) (Auto) 10.8 L, Monocytes (%) (Auto) 11.0 H, Eosinophils (%) (Auto) 0.0, Basophils (%) (Auto) 0.1, Neutrophils # (Auto) 10.8 H, Lymphocytes # (Auto) 1.5, Monocytes # (Auto) 1.5 H, Eosinophils # (Auto) 0.0, Basophils # (Auto) 0.0 Microbiology Microbiology 12/20/18 Blood Culture, Received Pending 12/20/18 Blood Culture, Received Pending Impression Traumatic fall Splenic rupture status post exploratory laparotomy, splenectomy Left renal subcapsular contusion small stable Multiple left rib fractures Transverse process fracture L1 Diabetes with continued hyperglycemia on insulin drip Patient surprisingly continues to have evidence of ongoing severe inflammatory response from his accident and is still requiring a good amount of levo fed for pressor support. He seems to be adequately volume resuscitated at this point. His hemoglobin and hematocrit has been stable. He is making adequate on concentrated urine despite this. He is pain covered with Zosyn for possibility of a sepsis source driving this though I did not see any perforation or signs of bowel injury intraoperatively. I think given that we do not yet have the full picture this is appropriate. Hopefully laura make further gains and his blood pressure throughout the course and then possibly even enough from the ventilator. Will need to reassess how he is able to take deep breathing but his multiple rib fractures and consider measures for pain control afterwards. Full critical support remains in place. Plan / VTE VTE Prophylaxis Ordered?: Yes ELLIE MOELLER MD Dec 20, 2018 10:06
[2018-12-21] VITALS (86 sets, daily range): BP systolic 77–156; BP diastolic 46–78; O2SAT 99
[2018-12-21] MEDS: PIPERACILLIN/TAZOBACTAM SOD 3.375 GM in D5W MINI-BAG PLUS 50 ML IV SCH ×3 (00:06→15:24)
[2018-12-21] MEDS: NS 1,000 ML IV SCH ×2 (00:06→07:30)
[2018-12-21] MEDS: PROPOFOL 1,000 MG in APPROPRIATE DILUENT 1 EA IV SCH ×2 (00:48→05:31)
[2018-12-21] MEDS: INSULIN IV RATE CHANGE DOCUMENTATION ML/HR XX SCH (00:53)
[2018-12-21] MEDS: MIDAZOLAM INJ 2 MG/2 ML VIAL (J2250) IV PRN ×3 (01:02→04:44)
[2018-12-21] MEDS: fentaNYL 100 MCG/2 ML INJECTION (J3010) IV PRN ×5 (01:03→09:06)
[2018-12-21] MEDS: INSULIN HUMAN REGULAR 100 UNITS in NS 99 ML IV SCH (04:55)
[2018-12-21] MEDS: HEPARIN SOD (PORCINE) 5000 UNITS/ML VIAL SC SCH ×3 (05:01→21:43)
[2018-12-21 05:19] LABS: BASO # 0.1 10^3/uL (0.0-0.2); BASO % 0.3 % (0.0-1.0); EOS % 0.1 % (0.0-3.0); HEMATOCRIT 22.9 % (42.0-52.0); LYMPH # 3.1 10^3/uL (1.5-4.5); LYMPH % 16.4 % (24.0-44.0); MEAN CORPUSCULAR HEMOGLOBIN 31.4 pg (27.0-33.0); MEAN CORPUSCULAR HGB CONC 33.6 g/dl (32.0-36.5); MEAN CORPUSCULAR VOLUME 93.5 fl (80.0-96.0); MONO % 11.6 % (0.0-5.0); NEUTROPHILS # 13.4 10^3/uL (1.8-7.7); NEUTROPHILS % 70.8 % (36.0-66.0); PLATELET COUNT, AUTOMATED 141 10^3/uL (150-450); RED BLOOD COUNT 2.45 10^6/uL (4.30-6.10); WHITE BLOOD COUNT 18.9 10^3/uL (4.0-10.0)
[2018-12-21 05:29] LABS: INR 1.11; PROTHROMBIN TIME 14.5 SECONDS (12.1-14.4)
[2018-12-21 05:30] LABS: PARTIAL THROMBOPLASTIN TIME 27.9 SECONDS (25.4-37.6)
[2018-12-21] MEDS: NOREPINEPHRINE BITARTRATE 16 MG in D5W 484 ML IV SCH (05:31)
[2018-12-21 05:51] LABS: HEMOGLOBIN 7.7 g/dl (13.5-17.5); MONO # 2.2 10^3/uL (0.0-0.8)
[2018-12-21 06:03] LABS: ABG BASE EXCESS -5.1 (-2.0-2.0); ABG HCO3 18.8 MEQ/L (22.0-26.0); ABG O2 SATURATION 93.3 % (95.0-99.0); ABG PARTIAL PRESSURE O2 68.1 mmHg (75.0-100.0); ABG STANDARD HCO3 20.2 MEQ/L (22.0-26.0); ABG TOTAL CO2 19.7 MEQ/L (22.0-29.0); ABG pH (ARTERIAL) 7.415 UNITS (7.350-7.450)
[2018-12-21 06:07] LABS: ALBUMIN 2.1 GM/DL (3.2-5.2); ALT/SGPT 183 U/L (12-78); BILIRUBIN,DIRECT < 0.1 MG/DL (0.0-0.2); BILIRUBIN,TOTAL 0.2 MG/DL (0.2-1.0); BLOOD UREA NITROGEN 24 MG/DL (7-18); CALCIUM LEVEL 7.4 MG/DL (8.5-10.1); CARBON DIOXIDE LEVEL 24 MEQ/L (21-32); CHLORIDE LEVEL 115 MEQ/L (98-107); CREATININE FOR GFR 1.24 MG/DL (0.70-1.30); GLOMERULAR FILTRATION RATE > 60.0 (>56); GLUCOSE, FASTING 102 MG/DL (70-100); POTASSIUM SERUM 4.3 MEQ/L (3.5-5.1); SODIUM LEVEL 146 MEQ/L (136-145); TOTAL PROTEIN 4.9 GM/DL (6.4-8.2)
[2018-12-21 06:55] LABS: HEMATOCRIT 22.3 % (42.0-52.0); HEMOGLOBIN 7.4 g/dl (13.5-17.5); MEAN CORPUSCULAR HEMOGLOBIN 31.1 pg (27.0-33.0); MEAN CORPUSCULAR HGB CONC 33.2 g/dl (32.0-36.5); MEAN CORPUSCULAR VOLUME 93.7 fl (80.0-96.0); PLATELET COUNT, AUTOMATED 147 10^3/uL (150-450); RED BLOOD COUNT 2.38 10^6/uL (4.30-6.10); WHITE BLOOD COUNT 16.7 10^3/uL (4.0-10.0)
[2018-12-21] MEDS ORDERED: dexmedeTOMidine 200 MCG in APPROPRIATE DILUENT 1 EA IV SCH (08:00)
[2018-12-21] MEDS ORDERED: FUROSEMIDE 20 MG/2 ML VIAL (J1940) IV ONE (08:00)
[2018-12-21] MEDS ORDERED: CALCIUM CHLORIDE 10% 1 GM in D5W 100 ML IV ONE (08:00)
[2018-12-21 09:05] LABS: ABG BASE EXCESS -3.4 (-2.0-2.0); ABG HCO3 20.3 MEQ/L (22.0-26.0); ABG O2 SATURATION 92.3 % (95.0-99.0); ABG PARTIAL PRESSURE O2 65.6 mmHg (75.0-100.0); ABG STANDARD HCO3 21.6 MEQ/L (22.0-26.0); ABG TOTAL CO2 21.3 MEQ/L (22.0-29.0); ABG pH (ARTERIAL) 7.434 UNITS (7.350-7.450)
[2018-12-21] MEDS: CHLORHEXIDINE GLUCONATE 0.12 % 15ML UDC (PERIDEX ORAL RINSE) MT SCH (09:06)
[2018-12-21] MEDS ORDERED: DEXTROSE 50% 50 ML SYRINGE IV PRN (10:30)
[2018-12-21] MEDS ORDERED: GLUCAGON FOR INJ 1 MG VIAL (J1610) SC PRN (10:30)
[2018-12-21] MEDS ORDERED: GLUCOSE 4 GM CHEW TABLET PO PRN (10:30)
--- NOTE | 2018-12-21 11:28 | CCN ---
DATE: 12/21/2018 ATTENDING PHYSICIAN: Janine Grimm MD SUBJECTIVE: The patient was seen and examined this morning in the intensive care unit (ICU) during bedside rounds. Overnight patient did have an elevated temperature of 100.2 F, subsequently treated with Tylenol and his temperature has not increased since. He was continued on Levophed only for blood pressure support, and propofol for sedation. The patient continues to have a Peterson in place and is making urine appropriately. PHYSICAL EXAMINATION: Temperature 97.0 Fahrenheit . Pulse is 105. Blood pressure is 98/52 with mean arterial pressure of 73. Oxygen saturation at 92%. Since midnight last night, the patient had a total intake of 1579 mL and an output of 690 mL of 545 mL of that being urine. Weight of 107.5, increased from time of admission where he was 104.6. General: The patient is an obese male. He is currently intubated and sedated. He has a history of intermittent agitation. Patient would intermittently follow commands during sedation vacations. HEENT: Normocephalic, atraumatic. The patient's pupils are reactive to light. Mucous membranes are moist. Trachea is midline. There is no indication of jugular venous distention (JVD). Cardiovascular: The patient has regular rate and rhythm with a normal S1 and S2. No murmurs were appreciable. Pulmonary: Ventilatory breath sounds still heard bilaterally. No signs of wheezing or rhonchi. The patient's abdomen is obese, mildly distended, yet soft. Midline incision is visible with dressing in place. Akira-Talavera (KAITY) drain with sanguinous fluid is also noted. Extremities: The patient does not have any significant lower extremity edema bilaterally today. LABORATORY DATA: Complete blood count (CBC): White count 16.7, RBC of 2.38, hemoglobin of 7.4, hematocrit of 22.3. Chemistry: Sodium of 146, BUN/creatinine of 24/1.24 with a glucose of 102, calcium was low at 7.4 with an ionized calcium of 4.4, AST/ALT of 141/183, albumin remains low at 2.1. Coagulation studies: PT of 14.5, INR of 1.11. Fibrinogen of 575. Blood gas: Prior to extubation, Bicarbonate of 20.2, pH of 7.415, pCO2 of 30, pO2 of 68. IMAGING: Chest x-ray this morning, 12/21/2018: Indicates persistent small bilateral pleural effusions and atelectasis. Endotracheal tube (ET) tube also in position with a left internal jugular subclavian line in place. Official read remains pending at this time. MICROBIOLOGY: Blood cultures remain negative after 24 hours of growth. Sputum gram-stain and cultures are pending. ASSESSMENT AND PLAN: Mr. Razo is a 53-year-old male, past medical history of ahp-kbxqzly-wensexabd diabetes mellitus, hyperlipidemia, obstructive sleep apnea (NGUYỄN) who originally presented after a fall from a ladder and landing on his left side. In the emergency department, the patient complained of left-sided abdominal pain and chest pain. He was originally found to be in hemorrhagic shock secondary to a fractured spleen with an arterial laceration and radiologic evidence of hemoperitoneum. The patient underwent exploratory laparotomy and subsequent splenectomy on 12/19/2018. Post-op, the patient remained intubated and was transferred to ICU for further management. The patient has remained on Levophed to maintain adequate blood pressure. Cardiac: Patient required pressure support for hypotension which was originally believed to be hypovolemic shock. He has since received 4 units of packed red blood cells and 3 liters of normal saline. This morning, he was continued on Levophed for pressure support. Other causes, including cardiogenic and septic shock were also considered. An echocardiogram was performed, which did not demonstrate reduced EF or valvular abnormalities. Patient was started on broad spectrum antibiotic coverage yesterday with improvement in his BP, WBC and lactic acid. Levophed was discontinued following extubation. Patient's pressures remain stable. Respiratory: Patient extubated from [facility] ventilation this morning. His ABG did demonstrate improvement though his chest x-ray did indicate a small amount of pleural effusions bilaterally, in addition to atelectasis. We are going to give him 20 mg of IV Lasix to help diurese some of the fluid. We will continue to monitor I&Os and give more IV Lasix as necessary. The patient was given a sedation vacation and a trial of weaning to extubation. The patient was successfully extubated to bilevel positive airway pressure (BiPAP) and will continue BiPAP at this time with only small breaks in between. The patient was extubated and the BiPAP settings are an IPAP of 10 and EPAP of 6, a rate of 14 and an oxygen of 40%. Nephrology: The patient did originally demonstrate acute kidney injury (CARIN) secondary to his hypovolemia. His kidney function has been improving. BUN/creatinine today of 24/1.24. His urine remains concentrated and clear of descent output. He was hypocalcemic and he was repleted appropriately. Continue to monitor with daily basic metabolic panel (BMP). Infectious Disease: The patient did initially present with a leukocytosis on admission that was thought to be reactive in nature. Original question of hypovolemic shock at that time, but we are also going to start considering sepsis secondary to the patient's hemoperitoneum. He was started on Zosyn yesterday for broad-spectrum coverage, specifically anaerobes and intra-abdominal bugs. Procalcitonin returned as 0.69, which indicates moderate risk for bacterial infection. This in addition to his elevated temperature of 100.2 last evening do suggest some sort of bacterial etiology. Blood culture is not showing growth after 24 hours. Plan to continue to trend procalcitonin and to decrease therapy as needed. In addition, as the patient is mildly asplenic that he will require appropriate vaccinations for capsulated bacteria prior to his discharge. Heme: The patient has received 4 units of packed red blood cells and another was given this morning after he was found to have a hemoglobin/hematocrit (H/H) of 7.4 and 22.3. Some of this is thought to be dilutional but also compensatory given patient's recent blood loss. Gastrointestinal (GI): The patient did have an orogastric (OG) tube, which was removed at the time of extubation. Liver functions remain slightly elevated, which is likely secondary to the patient's shock liver, but they continue to trend downward and we will continue to follow them as such. The patient is on GI prophylaxis with Protonix at this time. There is some potential that the patient is experiencing an ileus. Continue nothing by mouth (NPO). We will also be reducing his overall opioid requirement with PRN IV Toradol. Neuro: The patient is currently receiving fentanyl for pain. This is secondary to his original renal dysfunction. Renal function improved on today's lab draw. Plan to D/C fentanyl and transition to IV morphine and PRN Toradol. Endocrine: The patient is currently receiving an insulin drip. Plan to discontinue the insulin and begin with a Levemir dose this evening. We will transition the patient to fingersticks every 6 hours while he remains nothing by mouth. Code status: FULL CODE. Deep venous thrombosis (DVT) prophylaxis: The patient is currently being heparinized. IJanine, have conducted an independent history and examination and agree with the above detailed plan as discussed during rounds. Total critical care time spent not including any procedures approx 1 hour. YOLY
[2018-12-21] MEDS: KETOROLAC 30 MG/ML VIAL (J1885) IV PRN ×2 (11:42→17:54)
[2018-12-21] MEDS: HumaLOG INSULIN (NovoLOG) PER UNIT SC SCH ×2 (13:09→17:49)
--- NOTE | 2018-12-21 15:10 | REP ---
Chest one-view HISTORY: Intubation Comparison: 12/20/2018 There is poor inspiratory effort. Parenchymal density is present in the left lower lobe consistent with atelectasis that is unchanged compared to the previous study. Linear density is present in the right lower lobe consistent with atelectasis. The heart is normal in size. The pulmonary vasculature is normal in appearance. An ET tube, NG tube and PICC line are present. Impression: Bibasilar atelectasis unchanged on the left and new on the right. Electronically Signed by Patrice Alcantar MD 12/21/2018 03:01 P
[2018-12-21] MEDS: MORPHINE 4 MG/ML 1ML VIAL/SYRINGE (J2270) IV PRN ×2 (15:27→20:08)
[2018-12-21 18:28] LABS: HEMATOCRIT 24.6 % (42.0-52.0); MEAN CORPUSCULAR HGB CONC 32.5 g/dl (32.0-36.5); MEAN CORPUSCULAR VOLUME 92.1 fl (80.0-96.0); PLATELET COUNT, AUTOMATED 169 10^3/uL (150-450); RED BLOOD COUNT 2.67 10^6/uL (4.30-6.10); WHITE BLOOD COUNT 21.1 10^3/uL (4.0-10.0)
--- NOTE | 2018-12-21 20:07 | IPNPDOC ---
Subjective General Date/Time Seen The patient was seen on 12/21/18 at 20:07. Subject Chief Complaint/History The patient is a 53-year-old male admitted with a reason for visit of Trauma; Spl no other events reported. Enic Rupture. He continues to be critically ill, intubated though we have made some place in titrating his he will fed. He is making adequate urine now. Nurse reports 1 bump in the temperature above 100 which did not repeat it again. Current Medications Current Medications Current Medications Amlodipine Besylate (Norvasc) 5 mg DAILY PO ; Start 12/20/18 at 09:00; Stop 12/20/18 at 09:00; Status DC Chlorhexidine Gluconate (Peridex Oral Rinse) SWAB/BRUSH ORAL CAVITY BID MT Last administered on 12/21/18at 09:06; Start 12/20/18 at 09:00; Stop 12/21/18 at 11:11; Status DC Dexmedetomidine HCl 200 mcg/IV Miscellaneous Supplies 50 ml @ 0 mls/hr Q0M IV Last administered on 12/21/18at 08:28; Start 12/21/18 at 08:00; Stop 12/21/18 at 11:05; Status DC Dextrose (Dextrose 50%) 25 ml ASDIRECTED PRN IV SEE LABEL COMMENTS; Start 12/20/18 at 22:00 Dextrose (Dextrose 50%) 25 ml ASDIRECTED PRN IV SEE LABEL COMMENTS; Start 12/21/18 at 10:30; Status Cancel Fentanyl Citrate (Sublimaze) 25 mcg Q1HP PRN IV PAIN Last administered on 12/21/18at 09:06; Start 12/20/18 at 01:00; Stop 12/21/18 at 11:05; Status DC Fentanyl Citrate (Sublimaze) 25 mcg Q5MP PRN IV MODERATE PAIN (PS 4-7) Last administered on 12/19/18at 23:27; Start 12/19/18 at 23:00; Stop 12/20/18 at 00:26; Status DC Glucagon (Glucagon) 1 mg ASDIRECTED PRN SC SEE LABEL COMMENTS; Start 12/20/18 at 22:00 Glucagon (Glucagon) 1 mg ASDIRECTED PRN SC SEE LABEL COMMENTS; Start 12/21/18 at 10:30; Status Cancel Glucose (Glucose) 16 GM ASDIRECTED PRN PO SEE LABEL COMMENTS; Start 12/20/18 at 22:00 Glucose (Glucose) 16 GM ASDIRECTED PRN PO SEE LABEL COMMENTS; Start 12/21/18 at 10:30; Status Cancel Heparin Sodium (Porcine) (Heparin) 5,000 units Q8H SC Last administered on 12/21/18at 13:09; Start 12/20/18 at 06:00 Home Med (Med Rec Complete!) ASDIRECTED XX ; Start 12/19/18 at 18:30; Stop 12/19/18 at 18:33; Status DC Insulin Detemir (Levemir Insulin) 10 units QHS SC ; Start 12/21/18 at 21:00 Insulin Human Lispro (HumaLOG INSULIN) SEE PROTOCOL TABLE Q6H SC Last administered on 12/21/18at 17:49; Start 12/21/18 at 12:00 Insulin Human Regular 100 units/ Sodium Chloride 100 ml @ 15 mls/hr Q6H40M IV Last administered on 12/21/18at 04:55; Start 12/19/18 at 23:45; Stop 12/21/18 at 10:30; Status DC Ketorolac Tromethamine (ToRADol) 15 mg Q6H PRN IV PAIN Last administered on 12/21/18at 17:54; Start 12/21/18 at 11:15; Stop 12/26/18 at 11:14 Lactated Ringer's 1,000 ml @ 100 mls/hr Q10H IV ; Start 12/19/18 at 23:00; Stop 12/20/18 at 00:00; Status DC Lactated Ringer's 1,000 ml @ 150 mls/hr Q6H40M IV ; Start 12/19/18 at 21:27; Stop 12/20/18 at 00:53; Status DC Meperidine HCl (Demerol) 12.5 mg Q5MP PRN IV SHIVERING; Start 12/19/18 at 23:00; Stop 12/20/18 at 00:30; Status DC Metoclopramide HCl (REGLAN INJection) 10 mg Q6HP PRN IV NAUSEA OR VOMITING; Start 12/19/18 at 23:00; Stop 12/20/18 at 00:30; Status DC Midazolam HCl (Versed) 2 mg Q15MP PRN IV SEDATION Last administered on 12/21/18at 04:44; Start 12/19/18 at 23:45; Stop 12/21/18 at 11:05; Status DC Morphine Sulfate (Morphine Sulfate Inj) 2 mg Q1HP PRN IV SEVERE PAIN (PS 8-10); Start 12/19/18 at 21:30; Stop 12/20/18 at 01:03; Status DC Morphine Sulfate (Morphine Sulfate Inj) 2 mg Q4HP PRN IV PAIN Last administered on 12/21/18at 15:27; Start 12/21/18 at 11:15 Morphine Sulfate (Morphine Sulfate Inj) 4 mg Q2HP PRN IV SEVERE PAIN (PS 8-10); Start 12/19/18 at 21:30; Stop 12/20/18 at 01:03; Status DC Nebivolol (Bystolic) 5 mg DAILY PO ; Start 12/20/18 at 09:00; Stop 12/20/18 at 09:00; Status DC Non-Formulary Medication (Insulin Iv Rate Change Documentation ml/ Hr) ASDIRECTED XX Last administered on 12/21/18at 00:53; Start 12/20/18 at 01:00; Stop 12/21/18 at 10:29; Status DC Norepinephrine Bitartrate 16 mg/ Dextrose 500 ml @ 11.2 mls/hr Q24H IV Last administered on 12/21/18at 05:31; Start 12/20/18 at 10:30; Stop 12/21/18 at 11:11; Status DC Norepinephrine Bitartrate 8 mg/ Dextrose 500 ml @ 112 mls/hr Q4H28M IV Last administered on 12/20/18at 06:16; Start 12/19/18 at 23:45; Stop 12/20/18 at 10:29; Status DC Ondansetron HCl (ZOFRAN INJection) 4 mg Q4HP PRN IV NAUSEA OR VOMITING; Start 12/19/18 at 23:00; Stop 12/20/18 at 00:30; Status DC Ondansetron HCl (ZOFRAN INJection) 4 mg Q6HP PRN IV NAUSEA OR VOMITING; Start 12/19/18 at 21:30 Oxycodone/ Acetaminophen (Percocet 5mg/ 325mg Tablet) 1 tab ASDIRECTED PRN PO MILD/MODERATE PAIN (PS 1-7); Start 12/19/18 at 23:00; Stop 12/20/18 at 00:30; Status DC Pantoprazole Sodium (Protonix) 40 mg DAILY@2100 IV Last administered on 12/20/18at 20:51; Start 12/19/18 at 21:00 Piperacillin Sod/ Tazobactam Sod 3.375 gm/Dextrose 50 ml @ 50 mls/hr Q8H IV Last administered on 12/21/18at 15:24; Start 12/20/18 at 00:00 Propofol 1000 mg/ IV Miscellaneous Supplies 100 ml @ 15.68 mls/ hr Q6H23M IV Last administered on 12/21/18at 05:31; Start 12/19/18 at 21:45; Stop 12/21/18 at 11:05; Status DC Sodium Chloride 1,000 ml @ 150 mls/hr Q6H40M IV Last administered on 12/21/18at 07:30; Start 12/20/18 at 01:00; Stop 12/21/18 at 09:41; Status DC Vasopressin 20 units/Sodium Chloride 500 ml @ 60 mls/hr Q8H20M IV Last administered on 12/20/18at 05:28; Start 12/20/18 at 01:00; Stop 12/21/18 at 11:11; Status DC Allergies Coded Allergies: No Known Allergies (Unverified , 12/19/18) Objective Physical Examination Examination GENERAL APPEARANCE: Patient is moving all extremities spontaneously, remains intubated, sedation of. SKIN: Warm and moist. HEENT: Normocephalic, atraumatic. [place] palpebral conjunctiva, anicteric sclerae. Lips and mucosa appear moist. NECK: Supple, no thyromegaly. No obvious jugular venous distention. LUNGS: Clear to auscultation bilaterally. No wheezing appreciated. HEART: No chest wall abnormalities. Regular rate and rhythm with no murmurs appreciated. ABDOMEN: Abdomen is mildly distended, soft, round. Upper midline incision, dressings intact. KAITY drainage remains minimally serosanguineous. EXTREMITIES: Extremities have no deformities. No edema identified. Vital Signs Vital Signs Date Time Temp Pulse Resp B/P (MAP) Pulse Ox O2 Delivery O2 Flow Rate FiO2 12/21/18 19:53 99 BIPAP/CPAP 35 12/21/18 19:00 101 119/64 (82) 12/21/18 18:00 16 6/3/19 16:00 99.6 12/19/18 17:28 2.0 I&Os I&O- Last 24 Hours up to 6 AM 12/21/18 06:00 Intake Total 6106.1 ml Output Total 1770 ml Balance 4336.1 ml Laboratory Data Labs 24H Laboratory Tests 2 12/20/18 20:25: Bedside Glucose (Misc Panel) 134H 12/20/18 21:48: Bedside Glucose (Misc Panel) 132H 12/20/18 22:45: Bedside Glucose (Misc Panel) 63L 12/20/18 22:48: Bedside Glucose (Misc Panel) 144H 12/21/18 00:51: Bedside Glucose (Misc Panel) 134H 12/21/18 02:33: Bedside Glucose (Misc Panel) 128H 12/21/18 04:52: Bedside Glucose (Misc Panel) 96 12/21/18 05:06: Immature Granulocyte % (Auto) 0.8, White Blood Count 18.9H, Red Blood Count 2.45L, Hemoglobin 7.7#L, Hematocrit 22.9L, Mean Corpuscular Volume 93.5, Mean Corpuscular Hemoglobin 31.4, Mean Corpuscular Hemoglobin Concent 33.6, Red Cell Distribution Width 14.1, Platelet Count 141L, Neutrophils (%) (Auto) 70.8H, Lymphocytes (%) (Auto) 16.4L, Monocytes (%) (Auto) 11.6H, Eosinophils (%) (Auto) 0.1, Basophils (%) (Auto) 0.3, Neutrophils # (Auto) 13.4H, Lymphocytes # (Auto) 3.1, Monocytes # (Auto) 2.2H, Eosinophils # (Auto) 0.0, Basophils # (Auto) 0.1, Nucleated Red Blood Cells % (auto) 0.2H, Prothrombin Time 14.5H, Prothromb Time International Ratio 1.11, Activated Partial Thromboplast Time 27.9, Fibrinogen 575H, Anion Gap 7L, Glomerular Filtration Rate > 60.0, Lactic Acid Level 1.2, Calcium Level 7.4L, Aspartate Amino Transf (AST/SGOT) 141H, Alanine Aminotransferase (ALT/SGPT) 183H, Alkaline Phosphatase 37L, Total Bilirubin 0.2, Direct Bilirubin < 0.1, Total Protein 4.9L, Albumin 2.1#L, Albumin/Globulin Ratio 0.75L 12/21/18 05:48: Blood Gas Bicarbonate Standard 20.2L, Arterial Blood pH 7.415, Arterial Blood Partial Pressure CO2 30.0L, Arterial Blood Partial Pressure O2 68.1L, Arterial Blood Total CO2 19.7L, Arterial Blood HCO3 18.8L, Arterial Blood Base Excess - 5.1L, Arterial Blood Oxygen Saturation 93.3L 12/21/18 06:32: Nucleated Red Blood Cells % (auto) 0.2H, Whole Blood Ionized Calcium 4.4L 12/21/18 06:39: Bedside Glucose (Misc Panel) 105 12/21/18 08:43: Blood Gas Bicarbonate Standard 21.6L, Arterial Blood pH 7.434, Arterial Blood Partial Pressure CO2 31.0L, Arterial Blood Partial Pressure O2 65.6L, Arterial Blood Total CO2 21.3L, Arterial Blood HCO3 20.3L, Arterial Blood Base Excess -3 .4L, Arterial Blood Oxygen Saturation 92.3L 12/21/18 08:47: Bedside Glucose (Misc Panel) 108H 12/21/18 10:45: Bedside Glucose (Misc Panel) 102 12/21/18 12:11: Bedside Glucose (Misc Panel) 159H 12/21/18 17:34: Bedside Glucose (Misc Panel) 174H 12/21/18 18:10: Nucleated Red Blood Cells % (auto) 0.6H CBC/BMP Laboratory Tests 12/21/18 05:06 Red Blood Count 2.45 L, Mean Corpuscular Volume 93.5, Mean Corpuscular Hemoglobin 31.4, Mean Corpuscular Hemoglobin Concent 33.6, Red Cell Distribution Width 14.1, Neutrophils (%) (Auto) 70.8 H, Lymphocytes (%) (Auto) 16.4 L, Monocytes (%) (Auto) 11.6 H, Eosinophils (%) (Auto) 0.1, Basophils (%) (Auto) 0.3, Neutrophils # (Auto) 13.4 H, Lymphocytes # (Auto) 3.1, Monocytes # (Auto) 2.2 H, Eosinophils # (Auto) 0.0, Basophils # (Auto) 0.1 12/21/18 06:32 Red Blood Count 2.38 L, Mean Corpuscular Volume 93.7, Mean Corpuscular Hemoglobin 31.1, Mean Corpuscular Hemoglobin Concent 33.2, Red Cell Distribution Width 14.3 12/21/18 18:10 Red Blood Count 2.67 L, Mean Corpuscular Volume 92.1, Mean Corpuscular Hemoglobin 30.0, Mean Corpuscular Hemoglobin Concent 32.5, Red Cell Distribution Width 14.6 H Microbiology Microbiology 12/20/18 Blood Culture - Preliminary, Resulted No growth after 24 hours . All specim... 12/20/18 Blood Culture - Preliminary, Resulted No growth after 24 hours . All specim... 12/20/18 Gram Stain - Final, Resulted 12/20/18 Sputum Culture, Resulted Pending Impression Traumatic fall Splenic rupture status post exploratory laparotomy, splenectomy POD2 Left renal subcapsular contusion small stable Multiple left rib fractures Transverse process fracture L1 Diabetes with continued hyperglycemia on insulin drip Patient surprisingly continues to have evidence of ongoing severe inflammatory response from his accident and is still requiring a good amount of levo fed for pressor support. He seems to be adequately volume resuscitated at this point. His hemoglobin and hematocrit has been stable. He is making adequate on concentrated urine despite this. He is pain covered with Zosyn for possibility of a sepsis source driving this though I did not see any perforation or signs of bowel injury intraoperatively. I think given that we do not yet have the full picture this is appropriate. Hopefully ma make further gains and his blood pressure throughout the course and then possibly even enough from the ventilator. Will need to reassess how he is able to take deep breathing but his multiple rib fractures and consider measures for pain control afterwards. Full critical support remains in place. Plan / VTE VTE Prophylaxis Ordered?: Yes ELLIE MOELLER MD Dec 21, 2018 20:07
[2018-12-21] MEDS: ACETAMINOPHEN TAB 650MG DOSE (2X325MG) PO PRN (20:14)
[2018-12-21] MEDS: LEVEMIR (INSULIN DETEMIR) 1 UNITS/0.01ML SC SCH (21:43)
[2018-12-21] MEDS: PANTOPRAZOLE 40MG INJ (PROTONIX) (C9113) IV SCH (21:43)
[2018-12-22] VITALS (10 sets, daily range): BP systolic 97–123; BP diastolic 54–67
[2018-12-22] MEDS: MORPHINE 4 MG/ML 1ML VIAL/SYRINGE (J2270) IV PRN ×2 (00:02→12:34)
[2018-12-22] MEDS: HumaLOG INSULIN (NovoLOG) PER UNIT SC SCH ×5 (00:03→20:39)
[2018-12-22] MEDS: PIPERACILLIN/TAZOBACTAM SOD 3.375 GM in D5W MINI-BAG PLUS 50 ML IV SCH ×3 (00:03→15:13)
[2018-12-22] MEDS: KETOROLAC 30 MG/ML VIAL (J1885) IV PRN (05:11)
[2018-12-22] MEDS: HEPARIN SOD (PORCINE) 5000 UNITS/ML VIAL SC SCH ×3 (05:11→21:13)
[2018-12-22 05:18] LABS: BASO # 0.1 10^3/uL (0.0-0.2); BASO % 0.4 % (0.0-1.0); EOS # 0.3 10^3/uL (0.0-0.50); EOS % 1.5 % (0.0-3.0); HEMATOCRIT 23.8 % (42.0-52.0); HEMOGLOBIN 7.5 g/dl (13.5-17.5); LYMPH # 3.5 10^3/uL (1.5-4.5); LYMPH % 17.6 % (24.0-44.0); MEAN CORPUSCULAR HEMOGLOBIN 29.6 pg (27.0-33.0); MEAN CORPUSCULAR HGB CONC 31.5 g/dl (32.0-36.5); MEAN CORPUSCULAR VOLUME 94.1 fl (80.0-96.0); MONO # 1.7 10^3/uL (0.0-0.8); MONO % 8.6 % (0.0-5.0); NEUTROPHILS # 14.1 10^3/uL (1.8-7.7); NEUTROPHILS % 71.2 % (36.0-66.0); PLATELET COUNT, AUTOMATED 180 10^3/uL (150-450); RED BLOOD COUNT 2.53 10^6/uL (4.30-6.10); WHITE BLOOD COUNT 19.8 10^3/uL (4.0-10.0)
[2018-12-22 05:28] LABS: INR 1.08; PROTHROMBIN TIME 14.1 SECONDS (12.1-14.4)
[2018-12-22 05:29] LABS: PARTIAL THROMBOPLASTIN TIME 29.2 SECONDS (25.4-37.6)
[2018-12-22 05:40] LABS: BLOOD UREA NITROGEN 29 MG/DL (7-18); CALCIUM LEVEL 8.5 MG/DL (8.5-10.1); CARBON DIOXIDE LEVEL 22 MEQ/L (21-32); CHLORIDE LEVEL 114 MEQ/L (98-107); CREATININE FOR GFR 1.01 MG/DL (0.70-1.30); GLOMERULAR FILTRATION RATE > 60.0 (>56); GLUCOSE, FASTING 141 MG/DL (70-100); SODIUM LEVEL 146 MEQ/L (136-145)
[2018-12-22 06:24] LABS: ABG BASE EXCESS -4.7 (-2.0-2.0); ABG HCO3 20.3 MEQ/L (22.0-26.0); ABG O2 SATURATION 95.7 % (95.0-99.0); ABG PARTIAL PRESSURE CO2 36.9 mmHg (35.0-45.0); ABG PARTIAL PRESSURE O2 83.4 mmHg (75.0-100.0); ABG STANDARD HCO3 20.6 MEQ/L (22.0-26.0); ABG TOTAL CO2 21.5 MEQ/L (22.0-29.0); ABG pH (ARTERIAL) 7.359 UNITS (7.350-7.450)
[2018-12-22] MEDS ORDERED: FUROSEMIDE 40 MG/4 ML VIAL (J1940) IV ONE (09:00)
[2018-12-22] MEDS ORDERED: PERCOCET 5MG/325MG TAB PO PRN (09:15)
[2018-12-22] MEDS ORDERED: FUROSEMIDE 20 MG/2 ML VIAL (J1940) IV ONE (09:15)
[2018-12-22] MEDS ORDERED: GLUCAGON FOR INJ 1 MG VIAL (J1610) SC PRN (09:15)
[2018-12-22] MEDS ORDERED: DEXTROSE 50% 50 ML SYRINGE IV PRN (09:15)
[2018-12-22] MEDS ORDERED: GLUCOSE 4 GM CHEW TABLET PO PRN (09:15)
--- NOTE | 2018-12-22 09:15 | REP ---
CHEST, PORTABLE: AP portable view of the chest is performed. Comparison 12/21/2018. Endotracheal tube is not visualized. Left central venous catheter is seen with the tip in the superior vena cava. Cardiomediastinal silhouette is unchanged. Mild linear opacities in the right base are stable. Left retrocardiac opacity is stable. Nasogastric tube has been removed. Electronically Signed by Jose A Velazco MD 12/22/2018 12:31 P
--- NOTE | 2018-12-22 10:23 | IPNPDOC ---
Subjective General Date/Time Seen The patient was seen on 12/22/18 at 10:02. Subject Chief Complaint/History The patient is a 53-year-old male admitted with a reason for visit of Trauma; Spenic Rupture. Patient seen during rounds pain on the bed. He has been extubated yesterday and was on BiPAP overnight. He remains hemodynamically stable. He reports no shortness of breath. He reports pain of about 7 out of 10 on both chest and abdomen but overall looks fairly comfortable in spite of it. No acute changes or events overnight. Current Medications Current Medications Current Medications Acetaminophen (Tylenol Tab) 650 mg Q4HP PRN PO PAIN OR FEVER Last administered on 12/21/18at 20:14; Start 12/21/18 at 20:15 Amlodipine Besylate (Norvasc) 5 mg DAILY PO ; Start 12/20/18 at 09:00; Stop 12/20/18 at 09:00; Status DC Chlorhexidine Gluconate (Peridex Oral Rinse) SWAB/BRUSH ORAL CAVITY BID MT Last administered on 12/21/18at 09:06; Start 12/20/18 at 09:00; Stop 12/21/18 at 11:11; Status DC Dexmedetomidine HCl 200 mcg/IV Miscellaneous Supplies 50 ml @ 0 mls/hr Q0M IV Last administered on 12/21/18at 08:28; Start 12/21/18 at 08:00; Stop 12/21/18 at 11:05; Status DC Dextrose (Dextrose 50%) 25 ml ASDIRECTED PRN IV SEE LABEL COMMENTS; Start 12/20/18 at 22:00; Stop 12/22/18 at 09:22; Status DC Dextrose (Dextrose 50%) 25 ml ASDIRECTED PRN IV SEE LABEL COMMENTS; Start 12/21/18 at 10:30; Status Cancel Dextrose (Dextrose 50%) 25 ml ASDIRECTED PRN IV SEE LABEL COMMENTS; Start 12/22/18 at 09:15 Fentanyl Citrate (Sublimaze) 25 mcg Q1HP PRN IV PAIN Last administered on at 09:06; Start 12/20/18 at 01:00; Stop 12/21/18 at 11:05; Status DC Fentanyl Citrate (Sublimaze) 25 mcg Q5MP PRN IV MODERATE PAIN (PS 4-7) Last administered on 12/19/18at 23:27; Start 12/19/18 at 23:00; Stop 12/20/18 at 00:26; Status DC Glucagon (Glucagon) 1 mg ASDIRECTED PRN SC SEE LABEL COMMENTS; Start 12/20/18 at 22:00; Stop 12/22/18 at 09:22; Status DC Glucagon (Glucagon) 1 mg ASDIRECTED PRN SC SEE LABEL COMMENTS; Start 12/21/18 at 10:30; Status Cancel Glucagon (Glucagon) 1 mg ASDIRECTED PRN SC SEE LABEL COMMENTS; Start 12/22/18 at 09:15 Glucose (Glucose) 16 GM ASDIRECTED PRN PO SEE LABEL COMMENTS; Start 12/20/18 at 22:00; Stop 12/22/18 at 09:22; Status DC Glucose (Glucose) 16 GM ASDIRECTED PRN PO SEE LABEL COMMENTS; Start 12/21/18 at 10:30; Status Cancel Glucose (Glucose) 16 GM ASDIRECTED PRN PO SEE LABEL COMMENTS; Start 12/22/18 at 09:15 Heparin Sodium (Porcine) (Heparin) 5,000 units Q8H SC Last administered on 12/22/18at 05:11; Start 12/20/18 at 06:00 Home Med (Med Rec Complete!) ASDIRECTED XX ; Start 12/19/18 at 18:30; Stop 12/19/18 at 18:33; Status DC Insulin Detemir (Levemir Insulin) 10 units QHS SC Last administered on 12/21/18at 21:43; Start 12/21/18 at 21:00 Insulin Human Lispro (HumaLOG INSULIN) SEE PROTOCOL TABLE Q6H SC Last administered on 12/22/18at 05:12; Start 12/21/18 at 12:00; Stop 12/22/18 at 09:12; Status DC Insulin Human Lispro (HumaLOG INSULIN) See Protocol Table AC SC ; Start 12/22/18 at 12:00 Insulin Human Lispro (HumaLOG INSULIN) See Protocol Table QHS SC ; Start 12/22/18 at 21:00 Insulin Human Regular 100 units/ Sodium Chloride 100 ml @ 15 mls/hr Q6H40M IV Last administered on 12/21/18at 04:55; Start 12/19/18 at 23:45; Stop 12/21/18 at 10:30; Status DC Ketorolac Tromethamine (ToRADol) 15 mg Q6H PRN IV PAIN Last administered on 12/22/18at 05:11; Start 12/21/18 at 11:15; Stop 12/26/18 at 11:14 Lactated Ringer's 1,000 ml @ 100 mls/hr Q10H IV ; Start 12/19/18 at 23:00; Stop 12/20/18 at 00:00; Status DC Lactated Ringer's 1,000 ml @ 150 mls/hr Q6H40M IV ; Start 12/19/18 at 21:27; Stop 12/20/18 at 00:53; Status DC Meperidine HCl (Demerol) 12.5 mg Q5MP PRN IV SHIVERING; Start 12/19/18 at 23:00; Stop 12/20/18 at 00:30; Status DC Metoclopramide HCl (REGLAN INJection) 10 mg Q6HP PRN IV NAUSEA OR VOMITING; Start 12/19/18 at 23:00; Stop 12/20/18 at 00:30; Status DC Midazolam HCl (Versed) 2 mg Q15MP PRN IV SEDATION Last administered on 12/21/18at 04:44; Start 12/19/18 at 23:45; Stop 12/21/18 at 11:05; Status DC Morphine Sulfate (Morphine Sulfate Inj) 2 mg Q1HP PRN IV SEVERE PAIN (PS 8-10); Start 12/19/18 at 21:30; Stop 12/20/18 at 01:03; Status DC Morphine Sulfate (Morphine Sulfate Inj) 2 mg Q4HP PRN IV PAIN Last administered on 12/22/18at 00:02; Start 12/21/18 at 11:15 Morphine Sulfate (Morphine Sulfate Inj) 4 mg Q2HP PRN IV SEVERE PAIN (PS 8-10); Start 12/19/18 at 21:30; Stop 12/20/18 at 01:03; Status DC Nebivolol (Bystolic) 5 mg DAILY PO ; Start 12/20/18 at 09:00; Stop 12/20/18 at 09:00; Status DC Non-Formulary Medication (Insulin Iv Rate Change Documentation ml/ Hr) ASDIRECTED XX Last administered on 12/21/18at 00:53; Start 12/20/18 at 01:00; Stop 12/21/18 at 10:29; Status DC Norepinephrine Bitartrate 16 mg/ Dextrose 500 ml @ 11.2 mls/hr Q24H IV Last administered on 12/21/18at 05:31; Start 12/20/18 at 10:30; Stop 12/21/18 at 11:11; Status DC Norepinephrine Bitartrate 8 mg/ Dextrose 500 ml @ 112 mls/hr Q4H28M IV Last administered on 12/20/18at 06:16; Start 12/19/18 at 23:45; Stop 12/20/18 at 10:29; Status DC Ondansetron HCl (ZOFRAN INJection) 4 mg Q4HP PRN IV NAUSEA OR VOMITING; Start 12/19/18 at 23:00; Stop 12/20/18 at 00:30; Status DC Ondansetron HCl (ZOFRAN INJection) 4 mg Q6HP PRN IV NAUSEA OR VOMITING; Start 12/19/18 at 21:30 Oxycodone/ Acetaminophen (Percocet 5mg/ 325mg Tablet) 1 tab ASDIRECTED PRN PO MILD/MODERATE PAIN (PS 1-7); Start 12/19/18 at 23:00; Stop 12/20/18 at 00:30; Status DC Oxycodone/ Acetaminophen (Percocet 5mg/ 325mg Tablet) 1 tab Q4HP PRN PO MILD/MODERATE PAIN (PS 1-7); Start 12/22/18 at 09:15 Oxycodone/ Acetaminophen (Percocet 5mg/ 325mg Tablet) 2 tab Q4HP PRN PO SEVERE PAIN (PS 8-10); Start 12/22/18 at 09:15 Pantoprazole Sodium (Protonix) 40 mg DAILY@2100 IV Last administered on 12/21/18at 21:43; Start 12/19/18 at 21:00 Piperacillin Sod/ Tazobactam Sod 3.375 gm/Dextrose 50 ml @ 50 mls/hr Q8H IV Last administered on 12/22/18at 08:00; Start 12/20/18 at 00:00 Propofol 1000 mg/ IV Miscellaneous Supplies 100 ml @ 15.68 mls/ hr Q6H23M IV Last administered on 12/21/18at 05:31; Start 12/19/18 at 21:45; Stop 12/21/18 at 11:05; Status DC Sodium Chloride 1,000 ml @ 150 mls/hr Q6H40M IV Last administered on 12/21/18at 07:30; Start 12/20/18 at 01:00; Stop 12/21/18 at 09:41; Status DC Vasopressin 20 units/Sodium Chloride 500 ml @ 60 mls/hr Q8H20M IV Last administered on 12/20/18at 05:28; Start 12/20/18 at 01:00; Stop 12/21/18 at 11:11; Status DC Allergies Coded Allergies: No Known Allergies (Unverified , 12/19/18) Objective Physical Examination Examination GENERAL APPEARANCE: Overall looks fairly comfortable laying flat on the bed. He is able to move around the bed without noticeable splinting. SKIN: [Warm and moist]. Moderate edema on the bilateral hands, mild edema on bilateral foot HEENT: Normocephalic, atraumatic Mild pale palpebral conjunctiva. Lips mildly dry NECK: [Supple, no thyromegaly. No obvious jugular venous distention]. LUNGS: [Clear to auscultation bilaterally. No wheezing appreciated]. HEART: [No chest wall abnormalities. Regular rate and rhythm with no murmurs appreciated]. ABDOMEN: Abdomen is round, soft, still mildly distended but soft. Midline incision is covered with dry dressings. Joshua drain is putting out fairly thin serosanguineous fluid. Only 120 MLS yesterday, 80 mL so overnight. Minimally tender at the midline, mildly tender in the left side of the upper abdomen and chest wall. EXTREMITIES: He has a wide area of contusion and probably skin and superficial subcutaneous hematoma on the medial side of his right upper arm which blossomed a little from the initial contusion when he presented with a fall. He is able to move his left upper extremity without any noticeable discomfort from this soft tissue contusion. No skin breakdown. Skin and soft tissue are soft. No def ormities or shortening of the extremity. Vital Signs Vital Signs Date Time Temp Pulse Resp B/P (MAP) Pulse Ox O2 Delivery O2 Flow Rate FiO2 12/22/18 08:00 98.9 88 16 111/59 (76) 90 12/22/18 06:00 35 12/21/18 21:00 2.0 12/21/18 19:53 BIPAP/CPAP I&Os I&O- Last 24 Hours up to 6 AM 12/22/18 06:00 Intake Total 870.5 ml Output Total 2770 ml Balance -1899.5 ml Laboratory Data Labs 24H Laboratory Tests 2 12/21/18 10:45: Bedside Glucose (Misc Panel) 102 12/21/18 12:11: Bedside Glucose (Misc Panel) 159H 12/21/18 17:34: Bedside Glucose (Misc Panel) 174H 12/21/18 18:10: Nucleated Red Blood Cells % (auto) 0.6H 12/21/18 21:42: Bedside Glucose (Misc Panel) 134H 12/21/18 23:58: Bedside Glucose (Misc Panel) 133H 12/22/18 05:01: Immature Granulocyte % (Auto) 0.7, White Blood Count 19.8H, Red Blood Count 2 .53L, Hemoglobin 7.5L, Hematocrit 23.8L, Mean Corpuscular Volume 94.1, Mean Corpuscular Hemoglobin 29.6, Mean Corpuscular Hemoglobin Concent 31.5L, Red Cell Distribution Width 14.6H, Platelet Count 180, Neutrophils (%) (Auto) 71.2H, Lymphocytes (%) (Auto) 17.6L, Monocytes (%) (Auto) 8.6H, Eosinophils (%) (Auto) 1.5, Basophils (%) (Auto) 0.4, Neutrophils # (Auto) 14.1H, Lymphocytes # (Auto) 3.5, Monocytes # (Auto) 1.7H, Eosinophils # (Auto) 0.3, Basophils # (Auto) 0.1, Nucleated Red Blood Cells % (auto) 1.2H, Prothrombin Time 14.1, Prothromb Time International Ratio 1.08, Activated Partial Thromboplast Time 29.2, Blood Gas Bicarbonate Standard 20.6L, Arterial Blood pH 7.359, Arterial Blood Partial Pressure CO2 36.9, Arterial Blood Partial Pressure O2 83.4, Arterial Blood Total CO2 21.5L, Arterial Blood HCO3 20.3L, Arterial Blood Base Excess -4.7L, Arterial Blood Oxygen Saturation 95.7, Anion Gap 10, Glomerular Filtration Rate > 60.0, Blood Urea Nitrogen 29H, Creatinine 1.01, Sodium Level 146H, Potassium Level 4.0, Chloride Level 114H, Carbon Dioxide Level 22, Calcium Level 8.5 12/22/18 05:06: Bedside Glucose (Misc Panel) 147H CBC/BMP Laboratory Tests 12/21/18 18:10 Red Blood Count 2.67 L, Mean Corpuscular Volume 92.1, Mean Corpuscular Hemogl obin 30.0, Mean Corpuscular Hemoglobin Concent 32.5, Red Cell Distribution Width 14.6 H 12/22/18 05:01 Red Blood Count 2.53 L, Mean Corpuscular Volume 94.1, Mean Corpuscular Hemo globin 29.6, Mean Corpuscular Hemoglobin Concent 31.5 L, Red Cell Distribution Width 14.6 H, Neutrophils (%) (Auto) 71.2 H, Lymphocytes (%) (Auto) 17.6 L, Monocytes (%) (Auto) 8.6 H, Eosinophils (%) (Auto) 1.5, Basophils (%) (Auto) 0.4, Neutrophils # (Auto) 14.1 H, Lymphocytes # (Auto) 3.5, Monocytes # (Auto) 1.7 H, Eosinophils # (Auto) 0.3, Basophils # (Auto) 0.1, Calcium Level 8.5 Microbiology Microbiology 12/20/18 Blood Culture - Preliminary, Resulted No Growth after 48 hours. All Specime... 12/20/18 Blood Culture - Preliminary, Resulted No Growth after 48 hours. All Specime... 12/20/18 Gram Stain - Final, Complete 12/20/18 Sputum Culture - Final, Complete Imaging Studies Chest x-ray (12/22/2018) Endotracheal tube is not visualized. Left central venous catheter is seen with the tip in the superior vena cava. Cardiomediastinal silhouette is unchanged. Mild linear opacities in the right base are stable. Left retrocardiac opacity is stable. Nasogastric tube has been removed. Impression POD 3 Exploratory Laparotomy, Splenectomy doing much better still with leukocytosis, no evidence of any ongoing infection, probably all related to SIRS. He is on zosyn. Would keep for now but if cultures return negative and no focus in the coming days probably ok to d/c also still low hgb/hct but not symptomatic, hemodynamically holding steady. would hold off on any further transfusion at this point given no proof of any active bleeding pain control - percorcets, toradol will give some diuresis increase activity d/c olson Plan / VTE VTE Prophylaxis Ordered?: Yes ELLIE MOELLER MD Dec 22, 2018 10:23
--- NOTE | 2018-12-22 10:33 | CCN ---
DATE: 12/22/2018 SUBJECTIVE: The patient was interviewed and examined this morning in the intensive care unit (ICU) during morning rounds. Overnight, the patient has remained on BiPAP with no issues. Vitals have remained stable. He has not needed additional pressor support. Peterson remains in place. This morning, the patient is more awake and alert, able to answer questions appropriately and actively participate in his care. He denies any acute complaints at this time. Nursing reports patient has been passing gas without issue. PHYSICAL EXAMINATION: Temperature is 98.5, pulse 90, respiratory rate 16, blood pressure 123/67, SpO2 98% on 2 liters via nasal cannula. Input and output since last evening at midnight, patient has put out -465 mL and 24-hours yesterday patient was a negative balance of 864. GENERAL: The patient is an obese male, he is awake, alert. He is answering questions appropriately. He is able to actively participate in his care and actually follow commands. HEENT: Patient is normocephalic, atraumatic, pupils are reactive to light, extraocular muscles intact, mucous membranes are moist, trachea is midline. There is no indication of jugular venous distention (JVD). CARDIOVASCULAR: Patient has a regular rate and rhythm with normal S1 and S2 with no appreciable murmurs. PULMONARY: Patient does have bilateral lower lung field crackles. No indication of wheezing. ABDOMEN: Obese, very minimally distended, yet soft. Midline incision is noted with dressing in place. Akira-Talavera (KAITY) drain with sanguinous fluid is also noted. Bowel sounds are active in all four quadrants. EXTREMITIES: Patient does not have any significant lower extremity edema bilaterally. No calf tenderness bilaterally. LABORATORY DATA: Hematology: White count 19.8, decreased from 21.1 yesterday. Hemoglobin 7.5, decreased from 8.0 yesterday afternoon following his transfusion of one unit packed red blood cells. Hematocrit of 23.8. Chemistry: Sodium 146, chloride 114, BUN/creatinine 29/1.01, calcium has normalized at 8.5. Blood gas this morning: pH 7.359, pCO2 36.9, pO2 83.4, bicarbonate 20.3. POC glucoses overnight have ranged from 159 to 133. Microbiology Cultures: No growth after 48 hours. Sputum Gram stain is positive for many WBCs with few epithelial cells, a few gram negative rods, a few gram positive cocci in pairs and clusters. IMAGING: Chest x-ray (12/22/2018): Endotracheal tube not visualized, left central venous catheter seen with the tip of the superior vena cava. Cardiomediastinal silhouette is unchanged. Mild linear opacities in the right base are stable. A left retrocardiac opacity is stable. Nasogastric tube has been removed. ASSESSMENT/PLAN: Mr. Razo is a 53-year-old male, past medical history of non-insulin dependent diabetes mellitus, hyperlipidemia, obstructive sleep apnea (NGUYỄN), who originally presented after a fall from a ladder landing on his left side. In the emergency department, the patient complained of left side abdominal pain and chest pain. He was originally found to be in hemorrhagic shock secondary to a fractured spleen with arterial laceration and radiologic evidence of hemoperitoneum. Patient underwent exploratory laparotomy and subsequent splenectomy on 12/19/2018. Postoperative, patient remained intubated, transferred to the ICU for further management. Patient also required Levophed and vasopressin to maintain adequate blood pressure. Yesterday, the patient was extubated without difficulty. He remained on BiPAP most of the day with no issues. Cardiac: Patient has been off his Levophed since extubation yesterday. Blood pressures have remained stable. Echocardiogram performed on admission demonstrated an ejection fraction (EF) of 70-75%, thus ruling out cardiogenic shock. It was noted that patient's pressures seemed to improve with initiation of antibiotic therapy. This may lend to the hypothesis that patient's hypotension was secondary to sepsis. Respiratory: Patient's blood gas showed improvement today. He was taken off the BiPAP during the day. Patient was asked to bring his in his home CPAP so that he can continue to use that at night with his home settings. Chest x-ray this morning did show some bilateral pleural effusions and atelectasis with a retrocardiac opacity. This may indicate atelectasis or infiltrative process. Patient will be continued on incentive spirometry in order to prevent atelectasis and increase airway compliance. Nephrology: Patient has had good urine output with the assistance of IV Lasix. Calcium has normalized status post repletion. Infectious Disease: Patient is on Zosyn for antibiotics, day 3. Blood cultures are negative after 48 hours. Sputum gram stain did show white cells with a few gram negative rods and gram positive cocci in pairs/clusters. Plan to perform a nasal swab for Staphylococcus aureus (MRSA) screening given the fact that the patient's white count does remain elevated at 19.8. If patient is MRSA positive, then antibiotic therapy will be adjusted as appropriate. We plan to also repeat a procalcitonin tomorrow in order to trend it. The patient is asplenic and will require vaccination against encapsulated bacteria prior to discharge. Heme: Patient did receive one unit of packed red cells yesterday. His hemoglobin increased from 7.4 to 8.0. This morning patient's hemoglobin is 7.5. Per surgery, patient will not be receiving an additional unit as it is suspected this may be dilutional. 20 mg of IV Lasix twice a day will be started. Patient's fluid output will be monitored closely. For pain, patient is receiving 2 mg of morphine every 4 hours as needed and 50 mg of Toradol every 6 hours as needed. Patient also does have orders for acetaminophen 650 mg and Zofran for nausea. Patient reports adequate control of his pain at this time. Gastrointestinal (GI): Patient is status post splenectomy. He was nothing by mouth yesterday. He will be started on clear liquids today and advance his diet as tolerated. There was some question of ileus yesterday but patient has been passing gas overnight. Endocrine: Patient remains on Levemir 10 units nightly. He will begin a sliding scale insulin every morning and nightly. Code Status: Patient is a full code. Deep venous thrombosis (DVT) prophylaxis: Patient is receiving heparin. GI prophylaxis: Patient is on Protonix. IJanine, have conducted an independent history and examination and agree with the above detailed plan by the resident as discussed during rounds. Total critical care time spent not including procedures approx 40 mins. MTDD
[2018-12-22] MEDS: PERCOCET 5MG/325MG TAB PO PRN ×3 (11:10→18:51)
[2018-12-22] MEDS: LEVEMIR (INSULIN DETEMIR) 1 UNITS/0.01ML SC SCH (20:38)
[2018-12-22] MEDS: PANTOPRAZOLE 40MG INJ (PROTONIX) (C9113) IV SCH (20:39)
[2018-12-23] VITALS (7 sets, daily range): BP systolic 119–135; BP diastolic 58–77
[2018-12-23] MEDS: PERCOCET 5MG/325MG TAB PO PRN ×5 (00:33→21:57)
[2018-12-23] MEDS: PIPERACILLIN/TAZOBACTAM SOD 3.375 GM in D5W MINI-BAG PLUS 50 ML IV SCH ×4 (00:34→23:55)
[2018-12-23] MEDS: HEPARIN SOD (PORCINE) 5000 UNITS/ML VIAL SC SCH ×3 (05:13→21:59)
[2018-12-23 05:45] LABS: BASO # 0.1 10^3/uL (0.0-0.2); BASO % 0.7 % (0.0-1.0); EOS # 0.5 10^3/uL (0.0-0.50); EOS % 3.1 % (0.0-3.0); HEMATOCRIT 24.7 % (42.0-52.0); HEMOGLOBIN 7.9 g/dl (13.5-17.5); LYMPH % 13.3 % (24.0-44.0); MEAN CORPUSCULAR HEMOGLOBIN 30.7 pg (27.0-33.0); MEAN CORPUSCULAR VOLUME 96.1 fl (80.0-96.0); MONO # 1.5 10^3/uL (0.0-0.8); MONO % 9.6 % (0.0-5.0); NEUTROPHILS # 10.8 10^3/uL (1.8-7.7); NEUTROPHILS % 71.5 % (36.0-66.0); PLATELET COUNT, AUTOMATED 243 10^3/uL (150-450); RED BLOOD COUNT 2.57 10^6/uL (4.30-6.10); WHITE BLOOD COUNT 15.1 10^3/uL (4.0-10.0)
[2018-12-23 06:16] LABS: BLOOD UREA NITROGEN 21 MG/DL (7-18); CALCIUM LEVEL 8.2 MG/DL (8.5-10.1); CARBON DIOXIDE LEVEL 24 MEQ/L (21-32); CHLORIDE LEVEL 108 MEQ/L (98-107); CREATININE FOR GFR 0.79 MG/DL (0.70-1.30); GLOMERULAR FILTRATION RATE > 60.0 (>56); GLUCOSE, FASTING 144 MG/DL (70-100); POTASSIUM SERUM 3.6 MEQ/L (3.5-5.1); SODIUM LEVEL 142 MEQ/L (136-145)
[2018-12-23] MEDS: HumaLOG INSULIN (NovoLOG) PER UNIT SC SCH ×4 (07:17→21:00)
[2018-12-23] MEDS: metFORMIN XR 500MG TAB *GLUCOPHAGE XR PO SCH ×2 (08:00→18:30)
--- NOTE | 2018-12-23 08:16 | IPNPDOC ---
Subjective General Date/Time Seen The patient was seen on 12/23/18 at 08:15. Subject Chief Complaint/History The patient is a 53-year-old male admitted with a reason for visit of Trauma; Spenic Rupture. Patient noted to be febrile last night up to 101.5. He is having some mild productive cough but denies any shortness of breath. He is reporting left rib pain, not much abdominal discomfort. He has been voiding spent continuously since his Peterson has been removed. Current Medications Current Medications Current Medications Acetaminophen (Tylenol Tab) 650 mg Q4HP PRN PO PAIN OR FEVER Last administered on 12/21/18at 20:14; Start 12/21/18 at 20:15 Amlodipine Besylate (Norvasc) 5 mg DAILY PO ; Start 12/20/18 at 09:00; Stop 12/20/18 at 09:00; Status DC Chlorhexidine Gluconate (Peridex Oral Rinse) SWAB/BRUSH ORAL CAVITY BID MT Last administered on 12/21/18at 09:06; Start 12/20/18 at 09:00; Stop 12/21/18 at 11:11; Status DC Dexmedetomidine HCl 200 mcg/IV Miscellaneous Supplies 50 ml @ 0 mls/hr Q0M IV Last administered on 12/21/18at 08:28; Start 12/21/18 at 08:00; Stop 12/21/18 at 11:05; Status DC Dextrose (Dextrose 50%) 25 ml ASDIRECTED PRN IV SEE LABEL COMMENTS; Start 12/20/18 at 22:00; Stop 12/22/18 at 09:22; Status DC Dextrose (Dextrose 50%) 25 ml ASDIRECTED PRN IV SEE LABEL COMMENTS; Start 12/21/18 at 10:30; Status Cancel Dextrose (Dextrose 50%) 25 ml ASDIRECTED PRN IV SEE LABEL COMMENTS; Start 12/22/18 at 09:15 Fentanyl Citrate (Sublimaze) 25 mcg Q1HP PRN IV PAIN Last administered on 12/21/18at 09:06; Start 12/20/18 at 01:00; Stop 12/21/18 at 11:05; Status DC Fentanyl Citrate (Sublimaze) 25 mcg Q5MP PRN IV MODERATE PAIN (PS 4-7) Last administered on 12/19/18at 23:27; Start 12/19/18 at 23:00; Stop 12/20/18 at 00:26; Status DC Glucagon (Glucagon) 1 mg ASDIRECTED PRN SC SEE LABEL COMMENTS; Start 12/20/18 at 22:00; Stop 12/22/18 at 09:22; Status DC Glucagon (Glucagon) 1 mg ASDIRECTED PRN SC SEE LABEL COMMENTS; Start 12/21/18 at 10:30; Status Cancel Glucagon (Glucagon) 1 mg ASDIRECTED PRN SC SEE LABEL COMMENTS; Start 12/22/18 at 09:15 Glucose (Glucose) 16 GM ASDIRECTED PRN PO SEE LABEL COMMENTS; Start 12/20/18 at 22:00; Stop 12/22/18 at 09:22; Status DC Glucose (Glucose) 16 GM ASDIRECTED PRN PO SEE LABEL COMMENTS; Start 12/21/18 at 10:30; Status Cancel Glucose (Glucose) 16 GM ASDIRECTED PRN PO SEE LABEL COMMENTS; Start 12/22/18 at 09:15 Heparin Sodium (Porcine) (Heparin) 5,000 units Q8H SC Last administered on 12/23/18at 05:13; Start 12/20/18 at 06:00 Home Med (Med Rec Complete!) ASDIRECTED XX ; Start 12/19/18 at 18:30; Stop 12/19/18 at 18:33; Status DC Insulin Detemir (Levemir Insulin) 10 units QHS SC Last administered on 12/22/18at 20:38; Start 12/21/18 at 21:00 Insulin Human Lispro (HumaLOG INSULIN) SEE PROTOCOL TABLE Q6H SC Last adm inistered on 12/22/18at 05:12; Start 12/21/18 at 12:00; Stop 12/22/18 at 09:12; Status DC Insulin Human Lispro (HumaLOG INSULIN) See Protocol Table AC SC Last administered on 12/23/18at 07:17; Start 12/22/18 at 12:00 Insulin Human Lispro (HumaLOG INSULIN) See Protocol Table QHS SC ; Start 12/22/18 at 21:00 Insulin Human Regular 100 units/ Sodium Chloride 100 ml @ 15 mls/hr Q6H40M IV Last administered on 12/21/18at 04:55; Start 12/19/18 at 23:45; Stop 12/21/18 at 10:30; Status DC Ketorolac Tromethamine (ToRADol) 15 mg Q6H PRN IV PAIN Last administered on 12/22/18at 05:11; Start 12/21/18 at 11:15; Stop 12/26/18 at 11:14 Lactated Ringer's 1,000 ml @ 100 mls/hr Q10H IV ; Start 12/19/18 at 23:00; Stop 12/20/18 at 00:00; Status DC Lactated Ringer's 1,000 ml @ 150 mls/hr Q6H40M IV ; Start 12/19/18 at 21:27; Stop 12/20/18 at 00:53; Status DC Meperidine HCl (Demerol) 12.5 mg Q5MP PRN IV SHIVERING; Start 12/19/18 at 23:00; Stop 12/20/18 at 00:30; Status DC Metformin HCl (Glucophage) 500 mg BID@08,18 PO ; Start 12/23/18 at 08:00; Status UNV Metoclopramide HCl (REGLAN INJection) 10 mg Q6HP PRN IV NAUSEA OR VOMITING; Start 12/19/18 at 23:00; Stop 12/20/18 at 00:30; Status DC Midazolam HCl (Versed) 2 mg Q15MP PRN IV SEDATION Last administered on 12/21/18at 04:44; Start 12/19/18 at 23:45; Stop 12/21/18 at 11:05; Status DC Morphine Sulfate (Morphine Sulfate Inj) 2 mg Q1HP PRN IV SEVERE PAIN (PS 8-10); Start 12/19/18 at 21:30; Stop 12/20/18 at 01:03; Status DC Morphine Sulfate (Morphine Sulfate Inj) 2 mg Q4HP PRN IV PAIN Last administered on 12/22/18at 12:34; Start 12/21/18 at 11:15 Morphine Sulfate (Morphine Sulfate Inj) 4 mg Q2HP PRN IV SEVERE PAIN (PS 8-10); Start 12/19/18 at 21:30; Stop 12/20/18 at 01:03; Status DC Nebivolol (Bystolic) 5 mg DAILY PO ; Start 12/20/18 at 09:00; Stop 12/20/18 at 09:00; Status DC Non-Formulary Medication (Insulin Iv Rate Change Documentation ml/ Hr) ASDIRECTED XX Last administered on 12/21/18at 00:53; Start 12/20/18 at 01:00; Stop 12/21/18 at 10:29; Status DC Norepinephrine Bitartrate 16 mg/ Dextrose 500 ml @ 11.2 mls/hr Q24H IV Last administered on 12/21/18at 05:31; Start 12/20/18 at 10:30; Stop 12/21/18 at 11:11; Status DC Norepinephrine Bitartrate 8 mg/ Dextrose 500 ml @ 112 mls/hr Q4H28M IV Last administered on 12/20/18at 06:16; Start 12/19/18 at 23:45; Stop 12/20/18 at 10:29; Status DC Ondansetron HCl (ZOFRAN INJection) 4 mg Q4HP PRN IV NAUSEA OR VOMITING; Start 12/19/18 at 23:00; Stop 12/20/18 at 00:30; Status DC Ondansetron HCl (ZOFRAN INJection) 4 mg Q6HP PRN IV NAUSEA OR VOMITING; Start 12/19/18 at 21:30 Oxycodone/ Acetaminophen (Percocet 5mg/ 325mg Tablet) 1 tab ASDIRECTED PRN PO MILD/MODERATE PAIN (PS 1-7); Start 12/19/18 at 23:00; Stop 12/20/18 at 00:30; Status DC Oxycodone/ Acetaminophen (Percocet 5mg/ 325mg Tablet) 1 tab Q4HP PRN PO MIL D/MODERATE PAIN (PS 1-7); Start 12/22/18 at 09:15 Oxycodone/ Acetaminophen (Percocet 5mg/ 325mg Tablet) 2 tab Q4HP PRN PO SEVERE PAIN (PS 8-10) Last administered on 12/23/18at 05:13; Start 12/22/18 at 09:15 Pantoprazole Sodium (Protonix) 40 mg DAILY PO ; Start 12/23/18 at 09:00 Pantoprazole Sodium (Protonix) 40 mg DAILY@2100 IV Last administered on 12/22/18at 20:39; Start 12/19/18 at 21:00; Stop 12/23/18 at 07:38; Status DC Piperacillin Sod/ Tazobactam Sod 3.375 gm/Dextrose 50 ml @ 50 mls/hr Q8H IV L ast administered on 12/23/18at 07:16; Start 12/20/18 at 00:00 Propofol 1000 mg/ IV Miscellaneous Supplies 100 ml @ 15.68 mls/ hr Q6H23M IV Last administered on 12/21/18at 05:31; Start 12/19/18 at 21:45; Stop 12/21/18 at 11:05; Status DC Sodium Chloride 1,000 ml @ 150 mls/hr Q6H40M IV Last administered on 12/21/18at 07:30; Start 12/20/18 at 01:00; Stop 12/21/18 at 09:41; Status DC Vasopressin 20 units/Sodium Chloride 500 ml @ 60 mls/hr Q8H20M IV Last administered on 12/20/18at 05:28; Start 12/20/18 at 01:00; Stop 12/21/18 at 11:11; Status DC Allergies Coded Allergies: No Known Allergies (Unverified , 12/19/18) Objective Physical Examination Examination GENERAL APPEARANCE: Relatively comfortable. SKIN: Warm and moist. HEENT: Normocephalic, atraumatic. [place] palpebral conjunctiva, anicteric sclerae. Lips and mucosa appear moist. NECK: Supple, no thyromegaly. No obvious jugular venous distention. LUNGS: Clear to auscultation bilaterally. No wheezing appreciated. HEART: No chest wall abnormalities. Regular rate and rhythm with no murmurs appreciated. ABDOMEN: Abdomen is minimally distended, soft, round. Midline incision is intact without any drainage. KAITY drain becoming less in amount as well as more serous in character. EXTREMITIES: Extremities have no deformities. No edema identified. Vital Signs Vital Signs Date Time Temp Pulse Resp B/P (MAP) Pulse Ox O2 Delivery O2 Flow Rate FiO2 12/23/18 05:43 16 95 12/23/18 05:13 2.0 12/23/18 04:00 101.5 99 129/60 (83) 12/22/18 06:00 35 12/21/18 19:53 BIPAP/CPAP I&Os I&O- Last 24 Hours up to 6 AM 12/23/18 05:59 Intake Total 1770 ml Output Total 3385 ml Balance -1615 ml Laboratory Data Labs 24H Laboratory Tests 2 12/22/18 12:20: Bedside Glucose (Misc Panel) 199H 6/4/19 17:22: Bedside Glucose (Misc Panel) 147H 12/22/18 20:28: Bedside Glucose (Misc Panel) 196H 12/23/18 05:30: Immature Granulocyte % (Auto) 1.8, White Blood Count 15.1H, Red Blood Count 2.57L, Hemoglobin 7.9L, Hematocrit 24.7L, Mean Corpuscular Volume 96.1H, Mean Corpuscular Hemoglobin 30.7, Mean Corpuscular Hemoglobin Concent 32.0, Red Cell Distribution Width 14.2, Platelet Count 243, Neutrophils (%) (Auto) 71.5H, Lymphocytes (%) (Auto) 13.3L, Monocytes (%) (Auto) 9.6H, Eosinophils (%) (Auto) 3.1H, Basophils (%) (Auto) 0.7, Neutrophils # (Auto) 10.8H, Lymphocytes # (Auto) 2.0, Monocytes # (Auto) 1.5H, Eosinophils # (Auto) 0.5, Basophils # (Auto) 0.1, Nucleated Red Blood Cells % (auto) 5.4H, Anion Gap 10, Glomerular Filtration Rate > 60.0, Blood Urea Nitrogen 21H, Creatinine 0.79, Sodium Level 142, Potassium Level 3.6, Chloride Level 108H, Carbon Dioxide Level 24, Calcium Level 8.2L CBC/BMP Laboratory Tests 12/23/18 05:30 Red Blood Count 2.57 L, Mean Corpuscular Volume 96.1 H, Mean Corpuscular Hemoglo bin 30.7, Mean Corpuscular Hemoglobin Concent 32.0, Red Cell Distribution Width 14.2, Neutrophils (%) (Auto) 71.5 H, Lymphocytes (%) (Auto) 13.3 L, Monocytes (%) (Auto) 9.6 H, Eosinophils (%) (Auto) 3.1 H, Basophils (%) (Auto) 0.7, Neutrophils # (Auto) 10.8 H, Lymphocytes # (Auto) 2.0, Monocytes # (Auto) 1.5 H, Eosinophils # (Auto) 0.5, Basophils # (Auto) 0.1, Calcium Level 8.2 L Microbiology Microbiology 12/20/18 Blood Culture - Preliminary, Resulted No Growth after 72 hours. All specime... 12/20/18 Blood Culture - Preliminary, Resulted No Growth after 72 hours. All specime... 12/22/18 MRSA Screen, Received Pending 12/20/18 Gram Stain - Final, Complete 12/20/18 Sputum Culture - Final, Complete Impression POD 4 Exploratory Laparotomy, Splenectomy doing much better still with leukocytosis, no evidence of any ongoing infection, probably all related to SIRS. He is on zosyn. Would keep for now but if cultures return negative and no focus in the coming days probably ok to d/c also still low hgb/hct but not symptomatic, hemodynamically holding steady. would hold off on any further transfusion at this point given no proof of any active bleeding pain control - percorcets, toradol will give some diuresis increase activity Plan / VTE VTE Prophylaxis Ordered?: Yes ELLIE MOELLER MD Dec 23, 2018 08:16
--- NOTE | 2018-12-23 08:36 | PHACANCOPD ---
PHARMACY VANCOMYCIN DOSING Pt Demographics Demographics Patient Age:53 , Weight:103.900 , Gender: male Adjusted Body Weight Date: 12/23/18, Adjusted Body Weight: [79.84] Kg Events Past 24 Hours Events Past 24 Hours: NO: Dialysis, Diuretic Therapy, Change in CrCl, Fever, Elevation in WBC, Pending Diagnostics, Pending Procedures, Other Vancomycin Vancomycin indication: Pneumonia Vancomycin Target Ranges: 15-20 mcg/ml Vancomycin Load Y/N: Yes Load Dose Date Time Vancomycin Load Dose: 2g Date: 12/23/18 Time:09 Vancomycin Dose Date: 12/23/18. Current Vancomycin Dose: [1g iv q8h] Intermittent Dosing?: No Labs Labs Item Value Date Time White Blood Count 16.7 10^3/uL H 12/21/18 0632 White Blood Count 21.1 10^3/uL H 12/21/18 1810 White Blood Count 19.8 10^3/uL H 12/22/18 0501 White Blood Count 15.1 10^3/uL H 12/23/18 0530 Creatinine 1.24 MG/DL 12/21/18 0506 Creatinine 1.01 MG/DL 12/22/18 0501 Creatinine 0.79 MG/DL 12/23/18 0530 Micro Microbiology 12/20/18 Blood Culture - Preliminary, Resulted No Growth after 72 hours. All specime... 12/20/18 Blood Culture - Preliminary, Resulted No Growth after 72 hours. All specime... 12/22/18 MRSA Screen, Received Pending 12/20/18 Gram Stain - Final, Complete 12/20/18 Sputum Culture - Final, Complete Creatinine Clearance Date:12/23/18. Creatinine Clearance: [~122ml/min]. Pending Labs vancomycin trough 12/23/18 @08 Assessment and Plan Maintaining Current Dose?: Yes Reason for dose change: No Dose Change Pharmacist Note Pharmacist Note Date: 12/23/18. Pharmacist note: Pt is a 53 year old male being treated for Pneumonia goal trough 15-20mcg/ml. The patient has not been treated with vancomycin here at [facility] in the past. To achieve goal a 2g loading dose will start today @09:00. Maintenance therapy will consist of 1g IV every 8 hours starting 12/23/18 @ 17:00. A trough is scheduled for 12/24/18 @08. We will continue to monitor and adjust the dose as needed. BHARGAVI MAURICE PHARMACY Dec 23, 2018 08:36
[2018-12-23] MEDS: ASPIRIN 81 MG ENTERIC TAB PO SCH (09:02)
[2018-12-23] MEDS: PANTOPRAZOLE 40MG TAB (PROTONIX) PO SCH (09:02)
[2018-12-23 09:30] LABS: ALBUMIN 2.6 GM/DL (3.2-5.2); BILIRUBIN,DIRECT 0.1 MG/DL (0.0-0.2); BILIRUBIN,TOTAL 0.4 MG/DL (0.2-1.0); TOTAL PROTEIN 6.2 GM/DL (6.4-8.2)
--- NOTE | 2018-12-23 09:32 | REP ---
PORTABLE CHEST: AP portable view of the chest is performed and compared to a prior study of . Left central venous catheter has been removed. Mild linear opacities in the right base are stable. There is atelectasis or infiltrate in the left lung base, which is unchanged. The heart and mediastinum are unchanged. IMPRESSION: Removal of left central venous catheter. Otherwise stable. Electronically Signed by Jose A Velazco MD 12/24/2018 08:54 A
--- NOTE | 2018-12-23 09:53 | CCN ---
DATE OF SERVICE: 12/23/2018 The patient was seen and examined this morning during bedside rounds. Overnight, the patient was febrile with a maximum temperature (Tmax) of 101.5. This morning, he has some pain still in his left side of his ribs. He is also having some cough, which has not been very productive. He denies any abdominal pain. No nausea or vomiting. No diarrhea. His Peterson was removed, and he denies any dysuria or frequent urination. His central line was also removed. PHYSICAL EXAMINATION: Tmax 101.5, current temperature (Tcurrent) 99.1, pulse 98, respirations 18, blood pressure 135/70, oxygen (O2) saturation 95% on 2 liters nasal cannula. Intake 1.8 liters. Output 3.4 liters. General: The patient is an overweight male. He is sitting in the chair. Is awake and alert. Answering all questions appropriately. He is not in any acute respiratory distress. Is not using accessory muscles for respiration. HEENT: The patient is normocephalic, atraumatic. Pupils are reactive. Mucous membranes are moist. Trachea is midline. There is no jugular venous distention (JVD). Cardiovascular: The patient has a regular rate and rhythm. Normal S1, S2. Unable to appreciate any murmurs. Pulmonary: The patient has crackles bilaterally, more in the right base today than on the left base. He has no wheezing. Abdomen is obese, is soft, nontender, nondistended. He has a Akira-Talavera (KAITY) drain in place. Extremities: The patient does not have any significant lower extremity edema bilaterally. There is possible trace edema. LABORATORIES: WBC 50.1, hemoglobin 7.9, platelets 243. Chemistry: Sodium 142, potassium 3.6, chloride 108, bicarbonate 24, BUN 21, creatinine 0.79, glucose 144. MICROBIOLOGY: Methicillin-resistant Staphylococcus aureus (MRSA) screen is pending. IMAGES: Chest x-ray: There appears to be some improvement in the small pleural effusions bilaterally. There is still some mild pulmonary vascular congestion and possible left retrocardiac opacity versus atelectasis. ASSESSMENT AND PLAN: The patient is a 53-year-old male with a history of diabetes, hyperlipidemia, obstructive sleep apnea (NGUYỄN), who presented after a fall with landing on his left side. The patient was found to be in hemorrhagic shock secondary to a fractured spleen with arterial bleeding and hemoperitoneum. 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 He was kept intubated postoperatively and transferred to the intensive care unit (ICU) for further management. He did also require Levophed and vasopressin initially to maintain blood pressure, but he was able to be weaned off of the pressors and was successfully extubated initially to bilateral positive airway pressure (BiPAP). The patient has been off of BiPAP and has just been on his home continuous positive airway pressure (CPAP) at night. Cardiovascular: The patient's blood pressures have remained stable off of pressors. The patient's echocardiogram showed a normal ejection fraction (EF) with no significant valvular pathology. The patient was given Lasix 20 mg intravenous (IV) yesterday for diuresis, and he is net negative approximately 1.5 liters today. - Would continue to monitor his blood pressure. Respiratory. The patient's chest x-ray this morning shows improvement in his small bilateral pleural effusions. He does still have some mild pulmonary vascular congestion, and there is a possible left retrocardiac atelectasis versus opacity. The patient is on nasal cannula oxygen supplementation at 2 liters per minute. - Will continue to wean his nasal cannula oxygen as tolerated to maintain O2 saturation above 90% - Continue with incentive spirometer and out of bed to chair as tolerated. The patient has a history of obstructive sleep apnea. Continue with his home CPAP at night. Infectious disease (ID). The patient was started on broad-spectrum antibiotics with Zosyn due to concern for possible septic shock. His initial blood cultures and sputum cultures have been negative. The patient has had continued leukocytosis, although it is trending down today, but he has been febrile again overnight. - Would broaden antibiotic coverage by adding vancomycin and continuing Zosyn pending the results of his MRSA screen, which was sent yesterday. - Would repeat a procalcitonin. His initial procalcitonin was slightly elevated - Would repeat blood cultures today, urinalysis (UA) with reflex urine culture given his fever. His chest x-ray was repeated, which did not show any new focal opacities. There is a continue possible left retrocardiac atelectasis versus infiltrate. - Would also check liver function tests and lipase, although the patient denies any abdominal pain currently. - The patient is asplenic now and will require vaccination against encapsulated bacteria prior to his discharge and possible followup with infectious disease (ID). Nephrology/endocrine. The patient had acute kidney injury, likely in the setting of his shock, which has now improved. The patient was given Lasix 20 mg IV, and he has had good urine output and is net negative 1.5 liters. Would hold diuretics for today and continue monitoring his intake and output. Continue with Levemir 10 units nightly and insulin with meals and with a sliding-scale coverage. Would followup his fingersticks and adjust his insulin coverage as needed. - Monitor electrolytes and replete as needed. Gastrointestinal (GI). The patient presented with a splenic fracture and is status post splenectomy now. The patient's hemoglobin has been stable currently. Will continue to trend hemoglobin and hematocrit and transfuse as needed. - The patient's diet was advanced, and he appears to be tolerating it well. Deep venous thrombosis (DVT) prophylaxis. Heparin. Gastrointestinal prophylaxis. Protonix. FULL CODE TOTAL CRITICAL CARE TIME SPENT: Not including any procedures approximately 35 minutes. Please do not hesitate to call if any further questions or concerns. MTDD
[2018-12-23] MEDS: VANCOMYCIN HCL 1,000 MG, VIAL MATE ADAPTER 1 EACH in D5W 250 ML IV SCH ×2 (09:59→18:25)
[2018-12-23] MEDS ORDERED: VANCOMYCIN HCL 1,000 MG, VIAL MATE ADAPTER 1 EACH in D5W 250 ML IV ONE (10:00)
[2018-12-23] MEDS: glipiZIDE XL 5 MG TABCR PO SCH (12:46)
[2018-12-23] MEDS: IRBESARTAN 150 MG TAB PO SCH (21:57)
[2018-12-23] MEDS: LEVEMIR (INSULIN DETEMIR) 1 UNITS/0.01ML SC SCH (21:58)
[2018-12-23] MEDS: SIMVASTATIN 20 MG TAB PO SCH (21:58)
[2018-12-24] MEDS: VANCOMYCIN HCL 1,000 MG, VIAL MATE ADAPTER 1 EACH in D5W 250 ML IV SCH (01:22)
[2018-12-24 05:51] LABS: BASO # 0.1 10^3/uL (0.0-0.2); BASO % 0.9 % (0.0-1.0); EOS # 0.6 10^3/uL (0.0-0.50); EOS % 4.6 % (0.0-3.0); HEMATOCRIT 27.4 % (42.0-52.0); HEMOGLOBIN 8.9 g/dl (13.5-17.5); LYMPH # 2.3 10^3/uL (1.5-4.5); LYMPH % 19.6 % (24.0-44.0); MEAN CORPUSCULAR HEMOGLOBIN 30.9 pg (27.0-33.0); MEAN CORPUSCULAR HGB CONC 32.5 g/dl (32.0-36.5); MEAN CORPUSCULAR VOLUME 95.1 fl (80.0-96.0); MONO # 1.4 10^3/uL (0.0-0.8); MONO % 12.1 % (0.0-5.0); NEUTROPHILS # 7.2 10^3/uL (1.8-7.7); NEUTROPHILS % 60.2 % (36.0-66.0); RED BLOOD COUNT 2.88 10^6/uL (4.30-6.10); WHITE BLOOD COUNT 11.9 10^3/uL (4.0-10.0)
[2018-12-24 06:00] VITALS: BP 135/65
[2018-12-24 06:22] LABS: BLOOD UREA NITROGEN 12 MG/DL (7-18); CALCIUM LEVEL 8.4 MG/DL (8.5-10.1); CARBON DIOXIDE LEVEL 26 MEQ/L (21-32); CHLORIDE LEVEL 105 MEQ/L (98-107); CREATININE FOR GFR 0.77 MG/DL (0.70-1.30); GLOMERULAR FILTRATION RATE > 60.0 (>56); GLUCOSE, FASTING 120 MG/DL (70-100); POTASSIUM SERUM 3.1 MEQ/L (3.5-5.1); SODIUM LEVEL 141 MEQ/L (136-145)
[2018-12-24] MEDS: HEPARIN SOD (PORCINE) 5000 UNITS/ML VIAL SC SCH ×3 (06:43→20:36)
--- NOTE | 2018-12-24 07:11 | REP ---
Clinical: Trauma . Comparison: None . Findings: The mediastinum and cardiac silhouette are stable and within normal limits for portable technique. The lung alejo without focal consolidation, effusion, or pneumothorax. Skeletal structures are intact. Impression: No focal consolidation appreciated. Electronically Signed by Richard Anguiano MD 12/24/2018 07:03 A
[2018-12-24 07:34] LABS: PLATELET COUNT, AUTOMATED 344 10^3/uL (150-450)
--- NOTE | 2018-12-24 08:19 | IPNPDOC ---
Subjective General Date/Time Seen The patient was seen on 12/24/18 at 08:19. Subject Chief Complaint/History The patient is a 53-year-old male admitted with a reason for visit of Trauma; Spenic Rupture. Patient seen sitting up on his chair this morning. His first time I saw the patient out of bed and he is very comfortable. Patient reports he's feeling better has been having intermittent cough with mild sputum production. He had an episode of fever 2 nights ago and early yesterday morning but so far has been afebrile since then. He has been started on vancomycin in addition to the Zosyn. He is denying any severe abdominal discomfort. He is having urge to go to the bathroom was not been able to yet. He started working with physical therapy yesterday and reports he was able to walk to the end of the hallway but was having some of O2 desaturations while doing it. Current Medications Current Medications Current Medications Acetaminophen (Tylenol Tab) 650 mg Q4HP PRN PO PAIN OR FEVER Last administered on 12/21/18at 20:14; Start 12/21/18 at 20:15 Amlodipine Besylate (Norvasc) 5 mg DAILY PO ; Start 12/20/18 at 09:00; Stop 12/20/18 at 09:00; Status DC Aspirin (Ecotrin) 81 mg DAILY PO Last administered on 12/23/18at 09:02; Start 12/23/18 at 09:00 Chlorhexidine Gluconate (Peridex Oral Rinse) SWAB/BRUSH ORAL CAVITY BID MT Last administered on 12/21/18at 09:06; Start 12/20/18 at 09:00; Stop 12/21/18 at 11:11; Status DC Dexmedetomidine HCl 200 mcg/IV Miscellaneous Supplies 50 ml @ 0 mls/hr Q0M IV Last administered on 12/21/18at 08:28; Start 12/21/18 at 08:00; Stop 12/21/18 at 11:05; Status DC Dextrose (Dextrose 50%) 25 ml ASDIRECTED PRN IV SEE LABEL COMMENTS; Start 12/20/18 at 22:00; Stop 12/22/18 at 09:22; Status DC Dextrose (Dextrose 50%) 25 ml ASDIRECTED PRN IV SEE LABEL COMMENTS; Start 12/21/18 at 10:30; Status Cancel Dextrose (Dextrose 50%) 25 ml ASDIRECTED PRN IV SEE LABEL COMMENTS; Start 12/22/18 at 09:15 Fentanyl Citrate (Sublimaze) 25 mcg Q1HP PRN IV PAIN Last administered on 12/21/18at 09:06; Start 12/20/18 at 01:00; Stop 12/21/18 at 11:05; Status DC Fentanyl Citrate (Sublimaze) 25 mcg Q5MP PRN IV MODERATE PAIN (PS 4-7) Last administered on 12/19/18at 23:27; Start 12/19/18 at 23:00; Stop 12/20/18 at 00:26; Status DC Glipizide (Glucotrol Xl) 10 mg DAILY PO Last administered on 12/23/18at 12:46; Start 12/23/18 at 09:00 Glucagon (Glucagon) 1 mg ASDIRECTED PRN SC SEE LABEL COMMENTS; Start 12/20/18 at 22:00; Stop 12/22/18 at 09:22; Status DC Glucagon (Glucagon) 1 mg ASDIRECTED PRN SC SEE LABEL COMMENTS; Start 12/21/18 at 10:30; Status Cancel Glucagon (Glucagon) 1 mg ASDIRECTED PRN SC SEE LABEL COMMENTS; Start 12/22/18 at 09:15 Glucose (Glucose) 16 GM ASDIRECTED PRN PO SEE LABEL COMMENTS; Start 12/20/18 at 22:00; Stop 12/22/18 at 09:22; Status DC Glucose (Glucose) 16 GM ASDIRECTED PRN PO SEE LABEL COMMENTS; Start 12/21/18 at 10:30; Status Cancel Glucose (Glucose) 16 GM ASDIRECTED PRN PO SEE LABEL COMMENTS; Start 12/22/18 at 09:15 Heparin Sodium (Porcine) (Heparin) 5,000 units Q8H SC Last administered on 12/24/18at 06:43; Start 12/20/18 at 06:00 Home Med (Med Rec Complete!) ASDIRECTED XX ; Start 12/19/18 at 18:30; Stop 12/19/18 at 18:33; Status DC Insulin Detemir (Levemir Insulin) 10 units QHS SC Last administered on 12/23/18at 21:58; Start 12/21/18 at 21:00 Insulin Human Lispro (HumaLOG INSULIN) SEE PROTOCOL TABLE Q6H SC Last a dministered on 12/22/18at 05:12; Start 12/21/18 at 12:00; Stop 12/22/18 at 09:12; Status DC Insulin Human Lispro (HumaLOG INSULIN) See Protocol Table AC SC Last administered on 12/23/18at 18:25; Start 12/22/18 at 12:00 Insulin Human Lispro (HumaLOG INSULIN) See Protocol Table QHS SC ; Start 12/22/18 at 21:00 Insulin Human Regular 100 units/ Sodium Chloride 100 ml @ 15 mls/hr Q6H40M IV Last administered on 12/21/18at 04:55; Start 12/19/18 at 23:45; Stop 12/21/18 at 10:30; Status DC Irbesartan (Avapro) 150 mg QHS PO Last administered on 12/23/18 21:57; Start 12/23/18 at 21:00 Ketorolac Tromethamine (ToRADol) 15 mg Q6H PRN IV PAIN Last administered on 12/22/18 05:11; Start 12/21/18 at 11:15; Stop 12/26/18 at 11:14 Lactated Ringer's 1,000 ml @ 100 mls/hr Q10H IV ; Start 12/19/18 at 23:00; Stop 12/20/18 at 00:00; Status DC Lactated Ringer's 1,000 ml @ 150 mls/hr Q6H40M IV ; Start 12/19/18 at 21:27; Stop 12/20/18 at 00:53; Status DC Meperidine HCl (Demerol) 12.5 mg Q5MP PRN IV SHIVERING; Start 12/19/18 at 23:00; Stop 12/20/18 at 00:30; Status DC Metformin HCl (Glucophage Xr) 500 mg BID@08,18 PO Last administered on 12/23/18at 18:30; Start 12/23/18 at 08:00 Metoclopramide HCl (REGLAN INJection) 10 mg Q6HP PRN IV NAUSEA OR VOMITING; Start 12/19/18 at 23:00; Stop 12/20/18 at 00:30; Status DC Midazolam HCl (Versed) 2 mg Q15MP PRN IV SEDATION Last administered on 12/21/18at 04:44; Start 12/19/18 at 23:45; Stop 12/21/18 at 11:05; Status DC Morphine Sulfate (Morphine Sulfate Inj) 2 mg Q1HP PRN IV SEVERE PAIN (PS 8-10); Start 12/19/18 at 21:30; Stop 12/20/18 at 01:03; Status DC Morphine Sulfate (Morphine Sulfate Inj) 2 mg Q4HP PRN IV PAIN Last administered on 12/22/18at 12:34; Start 12/21/18 at 11:15 Morphine Sulfate (Morphine Sulfate Inj) 4 mg Q2HP PRN IV SEVERE PAIN (PS 8-10); Start 12/19/18 at 21:30; Stop 12/20/18 at 01:03; Status DC Nebivolol (Bystolic) 5 mg DAILY PO ; Start 12/20/18 at 09:00; Stop 12/20/18 at 09:00; Status DC Non-Formulary Medication (Insulin Iv Rate Change Documentation ml/ Hr) ASDIRECTED XX Last administered on 12/21/18at 00:53; Start 12/20/18 at 01:00; Stop 12/21/18 at 10:29; Status DC Norepinephrine Bitartrate 16 mg/ Dextrose 500 ml @ 11.2 mls/hr Q24H IV Last administered on 12/21/18at 05:31; Start 12/20/18 at 10:30; Stop 12/21/18 at 11:11; Status DC Norepinephrine Bitartrate 8 mg/ Dextrose 500 ml @ 112 mls/hr Q4H28M IV Last administered on 12/20/18at 06:16; Start 12/19/18 at 23:45; Stop 12/20/18 at 10:29; Status DC Ondansetron HCl (ZOFRAN INJection) 4 mg Q4HP PRN IV NAUSEA OR VOMITING; Start 12/19/18 at 23:00; Stop 12/20/18 at 00:30; Status DC Ondansetron HCl (ZOFRAN INJection) 4 mg Q6HP PRN IV NAUSEA OR VOMITING; Start 12/19/18 at 21:30 Oxycodone/ Acetaminophen (Percocet 5mg/ 325mg Tablet) 1 tab ASDIRECTED PRN PO MILD/MODERATE PAIN (PS 1-7); Start 12/19/18 at 23:00; Stop 12/20/18 at 00:30; Status DC Oxycodone/ Acetaminophen (Percocet 5mg/ 325mg Tablet) 1 tab Q4HP PRN PO MILD/MODERATE PAIN (PS 1-7); Start 12/22/18 at 09:15 Oxycodone/ Acetaminophen (Percocet 5mg/ 325mg Tablet) 2 tab Q4HP PRN PO SEVERE PAIN (PS 8-10) Last administered on 12/23/18 21:57; Start 12/22/18 at 09:15 Pantoprazole Sodium (Protonix) 40 mg DAILY PO Last administered on 12/23/18at 09:02; Start 12/23/18 at 09:00 Pantoprazole Sodium (Protonix) 40 mg DAILY@2100 IV Last administered on 12/22/18at 20:39; Start 12/19/18 at 21:00; Stop 12/23/18 at 07:38; Status DC Piperacillin Sod/ Tazobactam Sod 3.375 gm/Dextrose 50 ml @ 50 mls/hr Q8H IV Last administered on 12/23/18at 23:55; Start 12/20/18 at 00:00 Potassium Chloride (Micro-K Extencaps) 40 meq BID PO ; Start 12/24/18 at 09:00 Propofol 1000 mg/ IV Miscellaneous Supplies 100 ml @ 15.68 mls/ hr Q6H23M IV Last administered on 12/21/18at 05:31; Start 12/19/18 at 21:45; Stop 12/21/18 at 11:05; Status DC Simvastatin (Zocor) 20 mg QHS PO Last administered on 12/23/18at 21:58; Start 12/23/18 at 21:00 Sodium Chloride 1,000 ml @ 150 mls/hr Q6H40M IV Last administered on 12/21/18at 07:30; Start 12/20/18 at 01:00; Stop 12/21/18 at 09:41; Status DC Vancomycin HCl 1000 mg/IV Miscellaneous Supplies 1 each/ Dextrose 270 ml @ 270 mls/hr Q8H IV Last administered on 12/24/18at 01:22; Start 12/23/18 at 09:00; Stop 12/24/18 at 04:59; Status DC Vasopressin 20 units/Sodium Chloride 500 ml @ 60 mls/hr Q8H20M IV Last administered on 12/20/18at 05:28; Start 12/20/18 at 01:00; Stop 12/21/18 at 11:11; Status DC Allergies Coded Allergies: No Known Allergies (Unverified , 12/19/18) Objective Physical Examination Examination GENERAL APPEARANCE: Looks very comfortable. SKIN: Warm and moist. HEENT: Normocephalic, atraumatic. mild pale palpebral conjunctiva, anicteric sclerae. Lips and mucosa appear moist. NECK: Supple, no thyromegaly. No obvious jugular venous distention. LUNGS: Clear to auscultation bilaterally. No wheezing appreciated. Slight decrease in breath sounds on the posterior basal areas on the left side. No crackles no wheezing. HEART: No chest wall abnormalities. Regular rate and rhythm with no murmurs appreciated. ABDOMEN: Abdomen is round, soft, minimally distended. Upper midline incision with dasha intact, no drainage no erythema. KAITY drained with light pink serosanguineous fluid. EXTREMITIES: Multiple areas of soft tissue contusion in the left upper arm as well as the left posterior lateral leg which is stable. No bony deformities.. Vital Signs Vital Signs Date Time Temp Pulse Resp B/P (MAP) Pulse Ox O2 Delivery O2 Flow Rate FiO2 12/24/18 07:45 94 12/24/18 06:00 98.4 106 18 135/65 (88) 2.0 12/22/18 06:00 35 12/21/18 19:53 BIPAP/CPAP I&Os I&O- Last 24 Hours up to 6 AM 12/24/18 06:00 Intake Total 2080 ml Output Total 1910 ml Balance 170 ml Laboratory Data Labs 24H Laboratory Tests 2 12/23/18 08:33: Aspartate Amino Transf (AST/SGOT) 60H, Alanine Aminotransferase (ALT/SGPT) 150H, Alkaline Phosphatase 60, Total Bilirubin 0.4#, Direct Bilirubin 0.1, Total Protein 6.2#L, Albumin 2.6#L, Albumin/Globulin Ratio 0.72L, Lipase 114, Procalcitonin 0.28 12/23/18 12:04: Urine Color YELLOW, Urine Appearance CLEAR, Urine pH 5.0, Urine Specific [place] 1.032, Urine Protein NEGATIVE, Urine Glucose (UA) 3+H, Urine Ketones 2+H, Urine Blood 1+H, Urine Nitrite NEGATIVE, Urine Bilirubin NEGATIVE, Urine Urobilinogen 0.2, Urine Leukocyte Esterase NEGATIVE, Urine WBC (Auto) 2, Urine RBC (Auto) 2, Urine Hyaline Casts (Auto) 0, Urine Bacteria (Auto) NEGATIVE, Urine Squamous Epithelial Cells 0, Urine Mucus (Auto) SMALL, Urine Sperm (Auto) 12/23/18 12:20: Bedside Glucose (Misc Panel) 226H 12/23/18 16:50: Bedside Glucose (Misc Panel) 145H 12/23/18 20:57: Bedside Glucose (Misc Panel) 199H 12/24/18 05:27: Immature Granulocyte % (Auto) 2.6, White Blood Count 11.9H, Red Blood Count 2.88L, Hemoglobin 8.9L, Hematocrit 27.4L, Mean Corpuscular Volume 95.1, Mean Corpuscular Hemoglobin 30.9, Mean Corpuscular Hemoglobin Concent 32.5, Red Cell Distribution Width 13.7, Platelet Count 344#, Neutrophils (%) (Auto) 60.2, Lymphocytes (%) (Auto) 19.6L, Monocytes (%) (Auto) 12.1H, Eosinophils (%) (Auto) 4.6H, Basophils (%) (Auto) 0.9, Neutrophils # (Auto) 7.2, Lymphocytes # (Auto) 2.3, Monocytes # (Auto) 1.4H, Eosinophils # (Auto) 0.6H, Basophils # (Auto) 0.1, Nucleated Red Blood Cells % (auto) 14.2H, Anion Gap 10, Glomerular Filtration Rate > 60.0, Blood Urea Nitrogen 12, Creatinine 0.77, Sodium Level 141, Potassium Level 3.1L, Chloride Level 105, Carbon Dioxide Level 26, Calcium Level 8.4L CBC/BMP Laboratory Tests 12/24/18 05:27 Red Blood Count 2.88 L, Mean Corpuscular Volume 95.1, Mean Corpuscular Hemoglobin 30.9, Mean Corpuscular Hemoglobin Concent 32.5, Red Cell Distribution Width 13.7, Neutrophils (%) (Auto) 60.2, Lymphocytes (%) (Auto) 19.6 L, Monocytes (%) (Auto) 12.1 H, Eosinophils (%) (Auto) 4.6 H, Basophils (%) (Auto) 0.9, Neutrophils # (Auto) 7.2, Lymphocytes # (Auto) 2.3, Monocytes # (Auto) 1.4 H, Eosinophils # (Auto) 0.6 H, Basophils # (Auto) 0.1, Calcium Level 8.4 L Microbiology Microbiology 12/23/18 Blood Culture, Received Pending 12/23/18 Blood Culture, Received Pending 12/20/18 Blood Culture - Preliminary, Resulted No Growth after 72 hours. All specime... 12/20/18 Blood Culture - Preliminary, Resulted No Growth after 72 hours. All specime... 12/22/18 MRSA Screen - Final, Complete 12/20/18 Gram Stain - Final, Complete 12/20/18 Sputum Culture - Final, Complete Impression Postop day 5 after exploratory laparotomy, splenectomy for traumatic fall Multiple left rib fractures Small left renal contusion Transverse process fracture L1 Anemia secondary to bleeding improving Leukocytosis is improving. He is on antibiotics being covered with vancomycin and Zosyn. No clear sources of infection showing up on cultures though he may have a small infiltrate on the left lung and he is having some sputum production. A splenic He will need vaccinations for encapsulated organisms. Pneumococcal vaccine, Haemophilus influenza vaccine (not available in the hospital) meningococcal vaccine Acute debility needing physical therapy Active issues right now owing include monitoring for febrile episodes, co ntinuing IV antibiotics, continuing increase activity. Anticipate discharge when all this issues have resolved. Plan / VTE VTE Prophylaxis Ordered?: Yes ELLIE MOELLER MD Dec 24, 2018 08:19
[2018-12-24] MEDS: PANTOPRAZOLE 40MG TAB (PROTONIX) PO SCH (08:29)
[2018-12-24] MEDS: ASPIRIN 81 MG ENTERIC TAB PO SCH (08:29)
[2018-12-24] MEDS: glipiZIDE XL 5 MG TABCR PO SCH (08:29)
[2018-12-24] MEDS: POTASSIUM CHLORIDE 10 MEQ SR TABLET PO SCH ×2 (08:29→20:35)
[2018-12-24] MEDS: metFORMIN XR 500MG TAB *GLUCOPHAGE XR PO SCH ×2 (08:30→17:39)
[2018-12-24] MEDS: PIPERACILLIN/TAZOBACTAM SOD 3.375 GM in D5W MINI-BAG PLUS 50 ML IV SCH ×3 (08:30→23:48)
[2018-12-24] MEDS: HumaLOG INSULIN (NovoLOG) PER UNIT SC SCH ×4 (08:31→21:00)
[2018-12-24] MEDS ORDERED: MOM 30ML SUSPENSION UDC PO ONE (09:00)
[2018-12-24] MEDS ORDERED: [UNRECOGNIZED DRUG - OTHER] IM ONE (10:00)
[2018-12-24] MEDS ORDERED: PNEUMOCOCCAL VACCINE 0.5ML SYRINGE(90732) PNEUMOVAX 23 IM ONE (10:00)
[2018-12-24] MEDS: KETOROLAC 30 MG/ML VIAL (J1885) IV PRN (11:02)
[2018-12-24 14:00] VITALS: BP 128/61
[2018-12-24] MEDS: ACETAMINOPHEN TAB 650MG DOSE (2X325MG) PO PRN (15:54)
[2018-12-24] MEDS: SIMVASTATIN 20 MG TAB PO SCH (20:35)
[2018-12-24] MEDS: IRBESARTAN 150 MG TAB PO SCH (20:36)
[2018-12-24] MEDS: LEVEMIR (INSULIN DETEMIR) 1 UNITS/0.01ML SC SCH (21:23)
[2018-12-24 22:00] VITALS: BP 117/58
[2018-12-25] MEDS: HEPARIN SOD (PORCINE) 5000 UNITS/ML VIAL SC SCH (05:44)
[2018-12-25 06:00] VITALS: BP 133/75
[2018-12-25 06:21] LABS: BASO # 0.1 10^3/uL (0.0-0.2); BASO % 0.7 % (0.0-1.0); EOS # 0.5 10^3/uL (0.0-0.50); HEMATOCRIT 26.3 % (42.0-52.0); HEMOGLOBIN 8.3 g/dl (13.5-17.5); LYMPH # 1.7 10^3/uL (1.5-4.5); LYMPH % 13.9 % (24.0-44.0); MEAN CORPUSCULAR HEMOGLOBIN 30.2 pg (27.0-33.0); MEAN CORPUSCULAR HGB CONC 31.6 g/dl (32.0-36.5); MEAN CORPUSCULAR VOLUME 95.6 fl (80.0-96.0); MONO # 1.7 10^3/uL (0.0-0.8); MONO % 13.8 % (0.0-5.0); NEUTROPHILS # 7.9 10^3/uL (1.8-7.7); NEUTROPHILS % 65.9 % (36.0-66.0); PLATELET COUNT, AUTOMATED 419 10^3/uL (150-450); RED BLOOD COUNT 2.75 10^6/uL (4.30-6.10)
[2018-12-25 06:50] LABS: BLOOD UREA NITROGEN 12 MG/DL (7-18); CALCIUM LEVEL 8.5 MG/DL (8.5-10.1); CARBON DIOXIDE LEVEL 27 MEQ/L (21-32); CHLORIDE LEVEL 106 MEQ/L (98-107); CREATININE FOR GFR 0.88 MG/DL (0.70-1.30); GLOMERULAR FILTRATION RATE > 60.0 (>56); GLUCOSE, FASTING 206 MG/DL (70-100); POTASSIUM SERUM 3.7 MEQ/L (3.5-5.1); SODIUM LEVEL 141 MEQ/L (136-145)
--- NOTE | 2018-12-25 07:51 | IPNPDOC ---
Subjective General Date/Time Seen The patient was seen on 12/25/18 at 07:50. Subject Chief Complaint/History The patient is a 53-year-old male admitted with a reason for visit of Trauma; Spenic Rupture. He continues to do much better now. He is trying to ambulate. He reports more rib pain since then abdominal discomfort. No further febrile episodes. Current Medications Current Medications Current Medications Acetaminophen (Tylenol Tab) 650 mg Q4HP PRN PO PAIN OR FEVER Last administered on 12/24/18at 15:54; Start 12/21/18 at 20:15 Amlodipine Besylate (Norvasc) 5 mg DAILY PO ; Start 12/20/18 at 09:00; Stop 12/20/18 at 09:00; Status DC Aspirin (Ecotrin) 81 mg DAILY PO Last administered on 12/24/18at 08:29; Start 12/23/18 at 09:00 Chlorhexidine Gluconate (Peridex Oral Rinse) SWAB/BRUSH ORAL CAVITY BID MT Last administered on 12/21/18at 09:06; Start 12/20/18 at 09:00; Stop 12/21/18 at 11:11; Status DC Dexmedetomidine HCl 200 mcg/IV Miscellaneous Supplies 50 ml @ 0 mls/hr Q0M IV Last administered on 12/21/18at 08:28; Start 12/21/18 at 08:00; Stop 12/21/18 at 11:05; Status DC Dextrose (Dextrose 50%) 25 ml ASDIRECTED PRN IV SEE LABEL COMMENTS; Start 12/20/18 at 22:00; Stop 12/22/18 at 09:22; Status DC Dextrose (Dextrose 50%) 25 ml ASDIRECTED PRN IV SEE LABEL COMMENTS; Start 12/21/18 at 10:30; Status Cancel Dextrose (Dextrose 50%) 25 ml ASDIRECTED PRN IV SEE LABEL COMMENTS; Start 12/22/18 at 09:15 Fentanyl Citrate (Sublimaze) 25 mcg Q1HP PRN IV PAIN Last administered on 12/21/18at 09:06; Start 12/20/18 at 01:00; Stop 12/21/18 at 11:05; Status DC Fentanyl Citrate (Sublimaze) 25 mcg Q5MP PRN IV MODERATE PAIN (PS 4-7) Last administered on 12/19/18at 23:27; Start 12/19/18 at 23:00; Stop 12/20/18 at 00:26; Status DC Ferrous Gluconate (Fergon) 324 mg DAILY PO ; Start 12/25/18 at 09:00; Status UNV Glipizide (Glucotrol Xl) 10 mg DAILY PO Last administered on 12/24/18at 08:29; Start 12/23/18 at 09:00 Glucagon (Glucagon) 1 mg ASDIRECTED PRN SC SEE LABEL COMMENTS; Start 12/20/18 at 22:00; Stop 12/22/18 at 09:22; Status DC Glucagon (Glucagon) 1 mg ASDIRECTED PRN SC SEE LABEL COMMENTS; Start 12/21/18 at 10:30; Status Cancel Glucagon (Glucagon) 1 mg ASDIRECTED PRN SC SEE LABEL COMMENTS; Start 12/22/18 at 09:15 Glucose (Glucose) 16 GM ASDIRECTED PRN PO SEE LABEL COMMENTS; Start 12/20/18 at 22:00; Stop 12/22/18 at 09:22; Status DC Glucose (Glucose) 16 GM ASDIRECTED PRN PO SEE LABEL COMMENTS; Start 12/21/18 at 10:30; Status Cancel Glucose (Glucose) 16 GM ASDIRECTED PRN PO SEE LABEL COMMENTS; Start 12/22/18 at 09:15 Heparin Sodium (Porcine) (Heparin) 5,000 units Q8H SC Last administered on 12/25/18at 05:44; Start 12/20/18 at 06:00 Home Med (Med Rec Complete!) ASDIRECTED XX ; Start 12/19/18 at 18:30; Stop 12/19/18 at 18:33; Status DC Insulin Detemir (Levemir Insulin) 10 units QHS SC Last administered on 12/24/18at 21:23; Start 12/21/18 at 21:00 Insulin Human Lispro (HumaLOG INSULIN) SEE PROTOCOL TABLE Q6H SC Last administered on 12/22/18at 05:12; Start 12/21/18 at 12:00; Stop 12/22/18 at 09:12; Status DC Insulin Human Lispro (HumaLOG INSULIN) See Protocol Table AC SC Last administered on 12/24/18at 17:39; Start 12/22/18 at 12:00 Insulin Human Lispro (HumaLOG INSULIN) See Protocol Table QHS SC ; Start 12/22/18 at 21:00 Insulin Human Regular 100 units/ Sodium Chloride 100 ml @ 15 mls/hr Q6H40M IV Last administered on 12/21/18 04:55; Start 12/19/18 at 23:45; Stop 12/21/18 at 10:30; Status DC Irbesartan (Avapro) 150 mg QHS PO Last administered on 12/24/18at 20:36; Start 12/23/18 at 21:00 Ketorolac Tromethamine (ToRADol) 15 mg Q6H PRN IV PAIN Last administered on 12/24/18 11:02; Start 12/21/18 at 11:15; Stop 12/26/18 at 11:14 Lactated Ringer's 1,000 ml @ 100 mls/hr Q10H IV ; Start 12/19/18 at 23:00; Stop 12/20/18 at 00:00; Status DC Lactated Ringer's 1,000 ml @ 150 mls/hr Q6H40M IV ; Start 12/19/18 at 21:27; Stop 12/20/18 at 00:53; Status DC Meperidine HCl (Demerol) 12.5 mg Q5MP PRN IV SHIVERING; Start 12/19/18 at 23:00; Stop 12/20/18 at 00:30; Status DC Metformin HCl (Glucophage Xr) 500 mg BID@08,18 PO Last administered on 12/24/18at 17:39; Start 12/23/18 at 08:00 Metoclopramide HCl (REGLAN INJection) 10 mg Q6HP PRN IV NAUSEA OR VOMITING; Start 12/19/18 at 23:00; Stop 12/20/18 at 00:30; Status DC Midazolam HCl (Versed) 2 mg Q15MP PRN IV SEDATION Last administered on 12/21/18at 04:44; Start 12/19/18 at 23:45; Stop 12/21/18 at 11:05; Status DC Morphine Sulfate (Morphine Sulfate Inj) 2 mg Q1HP PRN IV SEVERE PAIN (PS 8-10); Start 12/19/18 at 21:30; Stop 12/20/18 at 01:03; Status DC Morphine Sulfate (Morphine Sulfate Inj) 2 mg Q4HP PRN IV PAIN Last administered on 12/22/18at 12:34; Start 12/21/18 at 11:15 Morphine Sulfate (Morphine Sulfate Inj) 4 mg Q2HP PRN IV SEVERE PAIN (PS 8-10); Start 12/19/18 at 21:30; Stop 12/20/18 at 01:03; Status DC Nebivolol (Bystolic) 5 mg DAILY PO ; Start 12/20/18 at 09:00; Stop 12/20/18 at 09:00; Status DC Non-Formulary Medication (Insulin Iv Rate Change Documentation ml/ Hr) ASDIRECTED XX Last administered on 12/21/18at 00:53; Start 12/20/18 at 01:00; Stop 12/21/18 at 10:29; Status DC Norepinephrine Bitartrate 16 mg/ Dextrose 500 ml @ 11.2 mls/hr Q24H IV Last administered on 12/21/18at 05:31; Start 12/20/18 at 10:30; Stop 12/21/18 at 11:11; Status DC Norepinephrine Bitartrate 8 mg/ Dextrose 500 ml @ 112 mls/hr Q4H28M IV Last administered on 12/20/18at 06:16; Start 12/19/18 at 23:45; Stop 12/20/18 at 10:29; Status DC Ondansetron HCl (ZOFRAN INJection) 4 mg Q4HP PRN IV NAUSEA OR VOMITING; Start 12/19/18 at 23:00; Stop 12/20/18 at 00:30; Status DC Ondansetron HCl (ZOFRAN INJection) 4 mg Q6HP PRN IV NAUSEA OR VOMITING; Start 12/19/18 at 21:30 Oxycodone/ Acetaminophen (Percocet 5mg/ 325mg Tablet) 1 tab ASDIRECTED PRN PO MILD/MODERATE PAIN (PS 1-7); Start 12/19/18 at 23:00; Stop 12/20/18 at 00:30; Sta tus DC Oxycodone/ Acetaminophen (Percocet 5mg/ 325mg Tablet) 1 tab Q4HP PRN PO MILD/MODERATE PAIN (PS 1-7) Last administered on 12/24/18at 11:02; Start 12/22/18 at 09:15 Oxycodone/ Acetaminophen (Percocet 5mg/ 325mg Tablet) 2 tab Q4HP PRN PO SEVERE PAIN (PS 8-10) Last administered on 12/23/18 21:57; Start 12/22/18 at 09:15 Pantoprazole Sodium (Protonix) 40 mg DAILY PO Last administered on 12/24/18 08:29; Start 12/23/18 at 09:00 Pantoprazole Sodium (Protonix) 40 mg DAILY@2100 IV Last administered on 12/22/18 20:39; Start 12/19/18 at 21:00; Stop 12/23/18 at 07:38; Status DC Piperacillin Sod/ Tazobactam Sod 3.375 gm/Dextrose 50 ml @ 50 mls/hr Q8H IV Last administered on 12/24/18 23:48; Start 12/20/18 at 00:00 Potassium Chloride (Micro-K Extencaps) 40 meq BID PO Last administered on 12/24/18 20:35; Start 12/24/18 at 09:00 Propofol 1000 mg/ IV Miscellaneous Supplies 100 ml @ 15.68 mls/ hr Q6H23M IV Last administered on 12/21/18 05:31; Start 12/19/18 at 21:45; Stop 12/21/18 at 11:05; Status DC Simvastatin (Zocor) 20 mg QHS PO Last administered on 12/24/18 20:35; Start 12/23/18 at 21:00 Sodium Chloride 1,000 ml @ 150 mls/hr Q6H40M IV Last administered on 12/21/18 07:30; Start 12/20/18 at 01:00; Stop 12/21/18 at 09:41; Status DC Vancomycin HCl 1000 mg/IV Miscellaneous Supplies 1 each/ Dextrose 270 ml @ 270 mls/hr Q8H IV Last administered on 12/24/18 01:22; Start 12/23/18 at 09:00; St op 12/24/18 at 04:59; Status DC Vasopressin 20 units/Sodium Chloride 500 ml @ 60 mls/hr Q8H20M IV Last administered on 12/20/18 05:28; Start 12/20/18 at 01:00; Stop 12/21/18 at 11:11; Status DC Allergies Coded Allergies: No Known Allergies (Unverified , 12/19/18) Objective Physical Examination Examination GENERAL APPEARANCE: Patient seen sitting up on the chair relatively comfortable. SKIN: Warm and moist. HEENT: Normocephalic, atraumatic. [place] palpebral conjunctiva, anicteric sclerae. Lips and mucosa appear moist. NECK: Supple, no thyromegaly. No obvious jugular venous distention. LUNGS: Clear to auscultation bilaterally. No wheezing appreciated. HEART: No chest wall abnormalities. Regular rate and rhythm with no murmurs appreciated. ABDOMEN: Abdomen is nondistended, soft, nontender. Midline incision clean dry and intact. KAITY drainage mostly serous. EXTREMITIES: Extremities have no deformities. No edema identified. Vital Signs Vital Signs Date Time Temp Pulse Resp B/P (MAP) Pulse Ox O2 Delivery O2 Flow Rate FiO2 12/25/18 06:00 98.0 110 20 133/75 (94) 98 12/24/18 06:00 2.0 12/22/18 06:00 35 12/21/18 19:53 BIPAP/CPAP I&Os I&O- Last 24 Hours up to 6 AM 12/25/18 06:00 Intake Total 1700 ml Output Total 5 ml Balance 1695 ml Laboratory Data Labs 24H Laboratory Tests 2 12/24/18 11:20: Bedside Glucose (Misc Panel) 215H 12/24/18 16:43: Bedside Glucose (Misc Panel) 166H 12/24/18 20:51: Bedside Glucose (Misc Panel) 173H 12/25/18 05:41: Immature Granulocyte % (Auto) 1.7, White Blood Count 12.0H, Red Blood Count 2.75L, Hemoglobin 8.3L, Hematocrit 26.3L, Mean Corpuscular Volume 95.6, Mean Corpuscular Hemoglobin 30.2, Mean Corpuscular Hemoglobin Concent 31.6L, Red Cell Distribution Width 13.9, Platelet Count 419, Neutrophils (%) (Auto) 65.9, Lymphocytes (%) (Auto) 13.9L, Monocytes (%) (Auto) 13.8H, Eosinophils (%) (Auto) 4.0H, Basophils (%) (Auto) 0.7, Neutrophils # (Auto) 7.9H, Lymphocytes # (Auto) 1.7, Monocytes # (Auto) 1.7H, Eosinophils # (Auto) 0.5, Basophils # (Auto) 0.1, Nucleated Red Blood Cells % (auto) 12.8H, Anion Gap 8, Glomerular Filtration Rate > 60.0, Blood Urea Nitrogen 12, Creatinine 0.88, Sodium Level 141, Potassium Level 3.7, Chloride Level 106, Carbon Dioxide Level 27, Calcium Level 8.5 CBC/BMP Laboratory Tests 12/25/18 05:41 Red Blood Count 2.75 L, Mean Corpuscular Volume 95.6, Mean Corpuscular Hemogl obin 30.2, Mean Corpuscular Hemoglobin Concent 31.6 L, Red Cell Distribution Width 13.9, Neutrophils (%) (Auto) 65.9, Lymphocytes (%) (Auto) 13.9 L, Monocytes (%) (Auto) 13.8 H, Eosinophils (%) (Auto) 4.0 H, Basophils (%) (Auto) 0.7, Neutrophils # (Auto) 7.9 H, Lymphocytes # (Auto) 1.7, Monocytes # (Auto) 1.7 H, Eosinophils # (Auto) 0.5, Basophils # (Auto) 0.1, Calcium Level 8.5 Microbiology Microbiology 12/23/18 Blood Culture - Preliminary, Resulted No growth after 24 hours . All specim... 12/23/18 Blood Culture - Preliminary, Resulted No growth after 24 hours . All specim... 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 Plan / VTE VTE Prophylaxis Ordered?: Yes ELLIE MOELLER MD Dec 25, 2018 07:51
[2018-12-25] MEDS: glipiZIDE XL 5 MG TABCR PO SCH (07:56)
[2018-12-25] MEDS: POTASSIUM CHLORIDE 10 MEQ SR TABLET PO SCH (07:57)
[2018-12-25] MEDS: metFORMIN XR 500MG TAB *GLUCOPHAGE XR PO SCH (07:57)
[2018-12-25] MEDS: PANTOPRAZOLE 40MG TAB (PROTONIX) PO SCH (07:57)
[2018-12-25] MEDS: ACETAMINOPHEN TAB 650MG DOSE (2X325MG) PO PRN (07:57)
[2018-12-25] MEDS: ASPIRIN 81 MG ENTERIC TAB PO SCH (07:57)
[2018-12-25] MEDS: PIPERACILLIN/TAZOBACTAM SOD 3.375 GM in D5W MINI-BAG PLUS 50 ML IV SCH (07:58)
[2018-12-25] MEDS: HumaLOG INSULIN (NovoLOG) PER UNIT SC SCH ×2 (07:58→12:00)
[2018-12-25] MEDS ORDERED: FERROUS GLUCONATE 324 MG TAB PO SCH (09:00)
[2018-12-25] MEDS ORDERED: PERCOCET PO (11:54)
[2018-12-25] MEDS ORDERED: KETO10TAB PO (11:54)
[2018-12-25] MEDS ORDERED: INSUDET SC (11:54)
[2018-12-25] MEDS ORDERED: AMOXTAB PO (11:57)
--- NOTE | 2018-12-25 12:25 | REP ---
Chest two views HISTORY: Leukocytosis Comparison: 12/23/2018 Parenchymal density is present in the left lower lobe consistent with atelectasis or infiltrate. The right lung is clear. There is blunting of the left costophrenic angle due to a small pleural effusion. The heart is normal in size. The pulmonary vasculature is normal in appearance. Degenerative change is present in the thoracic spine. IMPRESSION: 1. Left lower lobe atelectasis or infiltrate unchanged compared to the previous study. . 2. Small left pleural effusion. Electronically Signed by Patrice Alcantar MD 12/25/2018 12:17 P
--- NOTE | 2018-12-25 12:53 | DS.PDOC ---
Discharge Summary General Date of Admission Dec 19, 2018 at 18:25 Date of Discharge December 25, 2018 Discharge Summary PROCEDURES PERFORMED DURING STAY: Exploratory laparotomy, splenectomy, insertion of triple-lumen catheter at the left subclavian vein. ADMITTING DIAGNOSES: 1. Traumatic fall 2. Ruptured spleen 3. Multiple rib fractures 4. Left renal contusion 5. Uncontrolled controlled diabetes. DISCHARGE DIAGNOSES: 1. Traumatic fall 2. Ruptured spleen 3. Multiple rib fractures 4. Left renal contusion 5. Uncontrolled controlled diabetes, improved COMPLICATIONS/CHIEF COMPLAINT: Trauma; Splenic Rupture. HISTORY OF PRESENT ILLNESS: Patient was brought emergently to the emergency room after a fall from a ladder. He was hypotensive on presentation. Details of the presentation and admission can be found on the patient's HPI. HOSPITAL COURSE: He was brought emergently to the operating room to control his bleeding from the splenic rupture. No other injuries were found intraoperatively. He received multiple blood products for transfusion during the surgery but over all improved initially we were able to wean off the Robert-Synephrine. He was brought to the recovery room but during that time again became hypotensive. Triple-lumen catheter was placed by me on the left subclavian he was then started on the well-padded. He was seen by our critical care doctor will manage his care during his time in the ICU. He was subsequently transferred to the ICU. On presentation his blood sugars were found to be markedly elevated more than 600. We started him on an insulin drip postoperatively and this was continued until we have good control of his blood sugars at about postop day 2. He remained intubated in critical condition at postop day 3. He slowly gradually improved. He was able to be extubated at that time. Because of how critically ill he presented we chose to cover him with antibiotics immediately postoperatively. At about postop day 3 he had a febrile episode but this tapered off on its own most likely secondary to atelectasis. Once stable he was moved to the regular floors. He started working with physical therapy. Post operatively after this his main limitation seems to be more from the left rib fractures rather then the abdominal incision he eventually became comfortable enough to move around and be discharged. The Joshua drain was removed at postop day 5.. DISCHARGE MEDICATIONS: Please see below. ALLERGIES: Please see below. PHYSICAL EXAMINATION ON DISCHARGE: VITAL SIGNS: Please see below. GENERAL: Relatively comfortable. Patient is awake, alert, oriented. HEENT: Mild pale palpebral conjunctiva NECK: Neck is supple. No jugular venous distention CARDIOVASCULAR EXAMINATION: Regular heart rate and rhythm RESPIRATORY EXAMINATION: Respirations are regular, clear breath sounds to auscultation bilaterally with no wheezing. Mild tenderness over the left anterolateral chest with rib fractures but no flail portions ABDOMINAL EXAMINATION: Round, soft, nondistended. Midline incision with dasha intact. Drain site relatively try. Drain is removed. Minimally tender on pa lpation. EXTREMITIES: Minimal lower extremity edema SKIN: Mild scattered contusions on the thigh and upper extremity but no extremity deformity NEUROLOGICAL EXAMINATION: Awake, alert, oriented LABORATORY DATA: Please see below. IMAGING: Head CT, cervical spine CT, chest CT, CT abdomen and pelvis, multiple chest x-rays PROGNOSIS: Good ACTIVITY: Light activity 4 weeks. DIET: As tolerated DISCHARGE PLAN: Patient will be discharged home. DISPOSITION: . DISCHARGE INSTRUCTIONS: 1. Follow-up with me next week for removal of dasha. 2. Light activity until evaluated. ITEMS TO FOLLOWUP ON ON OUTPATIENT: 1. Need to arrange follow-up with infectious disease for vaccination for Haemophilus influenza 2. Need to arrange follow-up with primary doctor for better blood sugar control DISCHARGE CONDITION: Stable. TIME SPENT ON DISCHARGE: Greater than 45 minutes. Vital Signs/I&Os Vital Signs Date Time Temp Pulse Resp B/P (MAP) Pulse Ox O2 Delivery O2 Flow Rate FiO2 12/25/18 06:00 98.0 110 20 133/75 (94) 98 12/24/18 06:00 2.0 12/22/18 06:00 35 12/21/18 19:53 BIPAP/CPAP I&O- Last 24 Hours up to 6 AM0 12/25/18 06:00 Intake Total 1700 ml Output Total 5 ml Balance 1695 ml Laboratory Data Labs 24H Laboratory Tests 2 12/24/18 16:43: Bedside Glucose (Misc Panel) 166H 12/24/18 20:51: Bedside Glucose (Misc Panel) 173H 12/25/18 05:41: Immature Granulocyte % (Auto) 1.7, White Blood Count 12.0H, Red Blood Count 2.75L, Hemoglobin 8.3L, Hematocrit 26.3L, Mean Corpuscular Volume 95.6, Mean Co rpuscular Hemoglobin 30.2, Mean Corpuscular Hemoglobin Concent 31.6L, Red Cell Distribution Width 13.9, Platelet Count 419, Neutrophils (%) (Auto) 65.9, Lymphocytes (%) (Auto) 13.9L, Monocytes (%) (Auto) 13.8H, Eosinophils (%) (Auto) 4.0H, Basophils (%) (Auto) 0.7, Neutrophils # (Auto) 7.9H, Lymphocytes # (Auto) 1.7, Monocytes # (Auto) 1.7H, Eosinophils # (Auto) 0.5, Basophils # (Auto) 0.1, Nucleated Red Blood Cells % (auto) 12.8H, Anion Gap 8, Glomerular Filtration Rate > 60.0, Blood Urea Nitrogen 12, Creatinine 0.88, Sodium Level 141, Potassium Level 3.7, Chloride Level 106, Carbon Dioxide Level 27, Calcium Level 8.5 12/25/18 11:56: Bedside Glucose (Misc Panel) 172H CBC/BMP Laboratory Tests 12/25/18 05:41 Red Blood Count 2.75 L, Mean Corpuscular Volume 95.6, Mean Corpuscular Hemoglobin 30.2, Mean Corpuscular Hemoglobin Concent 31.6 L, Red Cell Di stribution Width 13.9, Neutrophils (%) (Auto) 65.9, Lymphocytes (%) (Auto) 13.9 L, Monocytes (%) (Auto) 13.8 H, Eosinophils (%) (Auto) 4.0 H, Basophils (%) (Auto) 0.7, Neutrophils # (Auto) 7.9 H, Lymphocytes # (Auto) 1.7, Monocytes # (Auto) 1.7 H, Eosinophils # (Auto) 0.5, Basophils # (Auto) 0.1, Calcium Level 8.5 FSBS Laboratory Tests Test 12/24/18 16:43 12/24/18 20:51 12/25/18 11:56 Range/Units Bedside Glucose (Misc Panel) 166 173 172 70-105 MG/DL Microbiology Microbiology 12/23/18 Blood Culture - Preliminary, Resulted No Growth after 48 hours. All Specime... 12/23/18 Blood Culture - Preliminary, Resulted No Growth after 48 hours. All Specime... 12/20/18 Blood Culture - Final, Complete NO GROWTH AFTER 5 DAYS 12/20/18 Blood Culture - Final, Complete NO GROWTH AFTER 5 DAYS 12/22/18 MRSA Screen - Final, Complete 12/20/18 Gram Stain - Final, Complete 12/20/18 Sputum Culture - Final, Complete Discharge Medications Scheduled Amlodipine Besylate (Norvasc) 5 Mg Tablet, 5 MG PO DAILY, (Reported) Amoxicillin/Potassium Clav (Amox-Clav ER 1,000-62.5 mg Tab) 1 Each Tab.er.12h, 1 TAB PO BID Aspirin (Ecotrin) 81 Mg Tablet.dr, 81 MG PO DAILY, (Reported) Dulaglutide (Trulicity) 1.5 Mg/0.5 Ml Pen.injctr, 1.5 MG SC QWEEK, (Reported) MONDAYS Glipizide (Glipizide ER) 10 Mg Tab.er.24, 10 MG PO DAILY, (Reported) Insulin Detemir (Levemir) 100 Unit/1 Ml Vial, 10 UNITS SC QHS Irbesartan (Irbesartan) 150 Mg Tablet, 150 MG PO QHS, (Reported) Metformin HCl (Metformin ER Gastric) 500 Mg [id number], 500 MG PO BID, (Reported) Nebivolol HCl (Bystolic) 5 Mg Tablet, 5 MG PO DAILY, (Reported) Paroxetine HCl (Paroxetine) 40 Mg Tablet, 40 MG PO DAILY, (Reported) Simvastatin (Simvastatin) 20 Mg Tablet, 20 MG PO QHS, (Reported) Scheduled PRN Ketorolac Tromethamine (Ketorolac Tromethamine) 10 Mg Tablet, 1 TAB PO Q6HP PRN for pain Oxycodone/Acetaminophen (Oxycodone-Acetaminophen 5-325) 1 Each Tablet, 1-2 TAB PO Q4HP PRN for SEVERE PAIN (PS 8-10) Allergies Coded Allergies: No Known Allergies (Unverified , 12/19/18) ELLIE MOELLER MD Dec 25, 2018 12:53
[2018-12-25 14:00] VITALS: BP 138/63
[2018-12-25] MEDS ORDERED: BD P31MI2 SC (15:11)
== END 2018-12-25 14:21 | disposition home or self-care (01) | DRG 911 ==
LOC: M ED 17:26 → EDBD 17:26 → M ED INP 18:25 → M ICU 23:43 → M MSPAV 12-23 08:51
PROVIDERS: ADMIT Surgery; ATTEND Surgery
PROC: 30233N1 Transfusion of Nonautologous Red Blood Cells into Peripheral Vein, Percutaneous Approach (ICD-10-PCS; 2018-12-19)
PROC: 02HV33Z Insertion of Infusion Device into Superior Vena Cava, Percutaneous Approach (ICD-10-PCS; 2018-12-19)
PROC: 5A1945Z Respiratory Ventilation, 24-96 Consecutive Hours (ICD-10-PCS; 2018-12-19)
PROC: 07TP0ZZ Resection of Spleen, Open Approach (ICD-10-PCS; principal; 2018-12-19 18:16)
DX: S36.032A Major laceration of spleen, initial encounter (principal); R65.21 Severe sepsis with septic shock; A41.9 Sepsis, unspecified organism; N17.9 Acute kidney failure, unspecified; E87.4 Mixed disorder of acid-base balance; J90 Pleural effusion, not elsewhere classified; T79.4XXA Traumatic shock, initial encounter; S32.018A Other fracture of first lumbar vertebra, initial encounter for closed fracture; S22.41XA Multiple fractures of ribs, right side, initial encounter for closed fracture; S37.012A Minor contusion of left kidney, initial encounter; E11.65 Type 2 diabetes mellitus with hyperglycemia; E66.9 Obesity, unspecified; I10 Essential (primary) hypertension; E78.00 Pure hypercholesterolemia, unspecified; G47.33 Obstructive sleep apnea (adult) (pediatric); W11.XXXA Fall on and from ladder, initial encounter; Y93.H9 Activity, other involving exterior property and land maintenance, building and construction; Z79.84 Long term (current) use of oral hypoglycemic drugs; Z79.899 Other long term (current) drug therapy; Z68.38 Body mass index [BMI] 38.0-38.9, adult

== ENCOUNTER → 2019-01-05 | Outpatient (REF) | payer OTHER ==
[~2019-01-05] MED LIST: AMOXTAB PO; BD P31MI2 SC; BYST5TAB2 PO; ECOT81TA5 PO; GLIP10TA18 PO; GLIP10TA6 PO; INSUDET SC; IRBE150T12 PO; KETO10TAB PO; METF-699 PO; NORV5TAB PO; PARO40TA3 PO; PERCOCET PO; SIMV20TA2 PO; TRUL0.5I SC
[2019-01-05 20:21] LABS: HEMOGLOBIN A1c 8.1 %
[2019-01-05 20:26] LABS: MALB URINE SIEMENS 74.6 MG/L; MAU/CREAT RATIO 62.6 MCG/MG (0.0-30.0)
== END ==
LOC: M LABDRWAD 19:09
PROVIDERS: ATTEND Nurse Practitioner Family
DX: E11.9 Type 2 diabetes mellitus without complications (principal)

== ENCOUNTER → 2019-05-03 | Outpatient (REF) | payer OTHER ==
[2019-05-03 15:27] LABS: ALBUMIN 4.3 GM/DL (3.2-5.2); ALT/SGPT 76 U/L (12-78); BILIRUBIN,TOTAL 0.4 MG/DL (0.2-1.0); BLOOD UREA NITROGEN 23 MG/DL (7-18); CALCIUM LEVEL 10.1 MG/DL (8.5-10.1); CARBON DIOXIDE LEVEL 26 MEQ/L (21-32); CHLORIDE LEVEL 102 MEQ/L (98-107); CHOLESTEROL LEVEL 196 MG/DL (<200); CREATININE FOR GFR 0.93 MG/DL (0.70-1.30); GLOMERULAR FILTRATION RATE > 60.0 (>56); GLUCOSE, FASTING 222 MG/DL (70-100); HDL CHOLESTEROL 41 MG/DL (>40); LDL CHOLESTEROL 105 MG/DL (<100); NON-HDL-C 155 MG/DL; POTASSIUM SERUM 5.3 MEQ/L (3.5-5.1); SODIUM LEVEL 135 MEQ/L (136-145); TOTAL PROTEIN 8.3 GM/DL (6.4-8.2); TRIGLYCERIDES LEVEL 249 MG/DL (<150)
== END ==
LOC: M LABDRWAD 13:14
PROVIDERS: ATTEND Nurse Practitioner Family
DX: E78.2 Mixed hyperlipidemia (principal)

== ENCOUNTER → 2019-08-11 | Outpatient (REF) | payer OTHER ==
[~2019-08-11] MED LIST changes: -SIMV20TA2 PO; +SIMV20TA22 PO
[2019-08-11 19:20] LABS: BASO # 0.2 10^3/uL (0.0-0.2); BASO % 1.6 % (0.0-1.0); EOS # 0.6 10^3/uL (0.0-0.5); EOS % 4.6 % (0.0-3.0); HEMATOCRIT 41.7 % (42.0-52.0); HEMOGLOBIN 12.5 g/dl (13.5-17.5); LYMPH # 4.4 10^3/uL (1.5-5.0); MEAN CORPUSCULAR HEMOGLOBIN 25.3 pg (27.0-33.0); MEAN CORPUSCULAR VOLUME 84.4 fl (80.0-96.0); MONO # 1.5 10^3/uL (0.0-0.8); MONO % 12.2 % (0.0-5.0); NEUTROPHILS # 5.5 10^3/uL (1.5-8.5); NEUTROPHILS % 45.4 % (36.0-66.0); PLATELET COUNT, AUTOMATED 451 10^3/uL (150-450); RED BLOOD COUNT 4.94 10^6/uL (4.30-6.10); WHITE BLOOD COUNT 12.2 10^3/uL (4.0-10.0)
[2019-08-11 19:22] LABS: ALBUMIN 4.6 GM/DL (3.2-5.2); ALT/SGPT 98 U/L (12-78); BILIRUBIN,TOTAL 0.3 MG/DL (0.2-1.0); BLOOD UREA NITROGEN 19 MG/DL (7-18); CALCIUM LEVEL 10.4 MG/DL (8.5-10.1); CARBON DIOXIDE LEVEL 25 MEQ/L (21-32); CHLORIDE LEVEL 101 MEQ/L (98-107); CREATININE FOR GFR 0.84 MG/DL (0.70-1.30); GLOMERULAR FILTRATION RATE > 60.0 (>56); GLUCOSE, FASTING 159 MG/DL (70-100); POTASSIUM SERUM 4.9 MEQ/L (3.5-5.1); SODIUM LEVEL 137 MEQ/L (136-145); TOTAL PROTEIN 8.5 GM/DL (6.4-8.2)
[2019-08-13 11:33] LABS: HEPATITIS B SURFACE ANTIGEN NEGATIVE (NEGATIVE)
[2019-08-13 12:00] LABS: HEPATITIS C VIRUS ABY INDEX < 0.0 INDEX (<0.8)
[2019-08-13 12:01] LABS: HEPATITIS B CORE ANTIBODY IGM NEGATIVE (NEGATIVE)
[2019-08-13 12:03] LABS: HEPATITIS A ANTIBODY IGM NEGATIVE (NEGATIVE)
== END ==
LOC: M SFHCADAM 14:59
PROVIDERS: ATTEND Physician Assistant
DX: Z12.11 Encounter for screening for malignant neoplasm of colon (principal); Z12.5 Encounter for screening for malignant neoplasm of prostate; L29.9 Pruritus, unspecified; Z92.89 Personal history of other medical treatment; Z90.81 Acquired absence of spleen; E11.9 Type 2 diabetes mellitus without complications
CPT/HCPCS: 80053; 85025; 86705; 86709; 86803; 87340; G0103

== ENCOUNTER → 2019-08-13 | Outpatient (REF) | payer OTHER ==
[2019-08-13 17:31] LABS: FERRITIN 12 NG/ML (26-388); IRON (FE) 65 UG/DL (65-175); PERCENT SATURATION 9.6 % (19.7-50.0); TOTAL IRON BINDING CAPACITY 678 UG/DL (250-450)
[2019-08-13 17:38] LABS: TOTAL 25(OH) VITAMIN D 26.1 NG/ML (30.0-100.0)
[2019-08-13 17:39] LABS: FOLATE > 24.0 NG/ML; PTH INTACT 15.7 PG/ML (18.5-88.0); VITAMIN B12 LEVEL 566 PG/ML
[2019-08-17 00:06] LABS: ANA (HEP2) Negative (.); ANTI-MITOCHONDRIAL ANTIBODY <20.0 Units (0.0-20.0)
== END ==
LOC: M SFHCADAM 13:47
PROVIDERS: ATTEND Physician Assistant
DX: D64.9 Anemia, unspecified (principal); R74.8 Abnormal levels of other serum enzymes; E83.52 Hypercalcemia

== ENCOUNTER → 2019-09-02 | Outpatient (CLI) | payer BC, OTHER ==
[~2019-09-02] MED LIST changes: -IRBE150T12 PO; +IRBE150T7 PO
--- NOTE | 2019-09-02 08:53 | REP ---
Clinical: Elevated liver function test. Technique: Real time sin scale ultrasound examination using curved array transducer. Findings: Diffuse fatty infiltration to the liver noted without focal hepatic lesion. Visualized portions of the pancreas are normal. The gallbladder demonstrates pharyngeal cap and suggestions for circumferential wall thickening which may be chronic. No gallstones identified. No biliary ductal dilatation is appreciated and the common bile duct measures 3.9 mm diameter. The right kidney is normal in reniform shape without hydronephrosis and measures 11.1 x 6.6 x 5.4 cm with a 1.2 cm simple mid pole cyst noted. No ascites. Impression: Hepatic steatosis. Suspected chronic gallbladder wall thickening without acute findings. 1.2 cm simple renal cyst Electronically Signed by Richard Anguiano MD 09/02/2019 08:44 A
== END ==
LOC: M RAD 07:53
PROVIDERS: ATTEND Physician Assistant
DX: R74.8 Abnormal levels of other serum enzymes (principal)

== ENCOUNTER 2020-01-24 12:20 | Emergency (ER) | payer OTHER, BC ==
[~2020-01-24] VITALS: Ht 167.6 cm; Wt 101.8 kg
[2020-01-24] MEDS ORDERED: FERR325T18 PO (12:55)
[2020-01-24] MEDS ORDERED: FARX1TAB3 PO (12:55)
[2020-01-24] MEDS ORDERED: TOUJ1.2I SC (12:55)
[2020-01-24] MEDS ORDERED: ACETAMINOPH W/CODEINE #3 TAB UD PO ONE (14:30)
--- NOTE | 2020-01-24 15:21 | REP ---
REASON: Trauma. The accompanying frontal view of the chest has been compared to the prior examination of 12/25/2018. The accompanying view of the chest is shows the lung alejo to be clear and the heart to be not enlarged. Multiple views of the right ribs show a subtle cortical buckling involving the anterior end of the right 10th rib without an abnormal concomitant lucency. IMPRESSION: Possible subtle right 10th rib fracture as described above. Electronically Signed by Salo Swift DO 01/24/2020 03:44 P
--- NOTE | 2020-01-24 15:22 | REP ---
REASON: Pain after trauma. There is AC joint narrowing. The glenohumeral relationship is within normal limits. There is no acute fracture, dislocation, or subluxation. IMPRESSION: Chronic changes. Electronically Signed by Salo Swift DO 01/24/2020 03:44 P
[2020-01-24] MEDS ORDERED: ISOVUE-370 76% 100ML VIAL As Ordered ONE (15:43)
[2020-01-24 16:22] VITALS: BP 130/74
[2020-01-24] MEDS ORDERED: TYLETAB14 PO (16:27)
--- NOTE | 2020-01-24 16:52 | REP ---
REASON: Trauma. Ultrasonography is less sensitive than CT in detecting liver lacerations. Multiple ultrasonographic images of the liver show diffuse increased echoes throughout the hepatic parenchyma without evidence of a mass or ductal dilatation. There is no pericholecystic edema or gallbladder wall thickening. There are no choleliths. The common bile duct measures 6 mm. Limited evaluation of the pancreas shows no gross abnormalities. The imaged portions of the right kidney show a 1.2-cm sized hypoechoic structure which exhibits posterior wall enhancement and increased through transmission. IMPRESSION: 1. There is diffuse fatty infiltration of the liver without evidence of an abnormal right upper quadrant fluid collection or liver laceration. CT with contrast is more sensitive in detecting liver lacerations than is ultrasonography. 2. Probable small right renal cyst. This too would be better evaluated with pre- and postcontrast enhanced CT. Electronically Signed by Salo Swift DO 01/24/2020 05:19 P
--- NOTE | 2020-01-25 08:59 | REP ---
REASON: Trauma. Prior plain film examination of the right ribs showed a possible right 10th rib fracture anteriorly. The only prior CT of the abdomen and pelvis for comparison is 12/19/2018. CONTRAST: 100 mL Isovue 370. Curvilinear densities are seen in the lung bases likely subsegmental atelectatic changes. There are no pleural or pericardial effusions. The patient is status post splenectomy. Diffuse low density is seen throughout the hepatic parenchyma with some evidence of areas of sparing. There are no enhancing hepatic abnormalities. The gallbladder, pancreas, and adrenal glands are within normal limits. There is mild bilateral perinephric stranding status quo. There is a small unchanged cyst in the interpolar region of the right kidney. The abdominal aorta and para-aortic regions are within normal limits. There is no free fluid or free air in the abdomen or pelvis. The intrapelvic and intra-abdominal bowel loops are within normal limits. Seen in the left mid abdominal mesentery, there is evidence of mesenteric fibrotic change likely a sequelae of previous surgery and/or previous hemoperitoneum from macerated spleen seen 12/19/2018. Bone window technique throughout the exam shows chronic spinal, hip, sacroiliac joint degenerative changes. There is no evidence of a fracture. IMPRESSION: 1. Fatty infiltration of the liver with suspected areas of sparing. 2. Chronic renal changes as described above. 3. 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 4. There is no evidence of acute intra-abdominal or intrapelvic disease. Electronically Signed by Salo Swift DO 01/25/2020 05:18 P
--- NOTE | 2020-01-25 13:25 | ED PDOC ---
Post-Departure Follow-Up saul rodrigues faxed formal report of liver us for fu Lisa Kauffman MD Jan 25, 2020 13:25
== END 2020-01-24 16:29 | disposition home or self-care (01) ==
LOC: M ED 12:20
DX: S22.31XA Fracture of one rib, right side, initial encounter for closed fracture (principal); S43.401A Unspecified sprain of right shoulder joint, initial encounter; S20.211A Contusion of right front wall of thorax, initial encounter; S40.011A Contusion of right shoulder, initial encounter; W01.0XXA Fall on same level from slipping, tripping and stumbling without subsequent striking against object, initial encounter; Y92.89 Other specified places as the place of occurrence of the external cause; Y99.0 Civilian activity done for income or pay; I10 Essential (primary) hypertension; E11.9 Type 2 diabetes mellitus without complications; E78.5 Hyperlipidemia, unspecified; F41.9 Anxiety disorder, unspecified; G47.33 Obstructive sleep apnea (adult) (pediatric); K21.9 Gastro-esophageal reflux disease without esophagitis; Z99.89 Dependence on other enabling machines and devices; Z79.899 Other long term (current) drug therapy; Z79.82 Long term (current) use of aspirin; Z79.4 Long term (current) use of insulin; Z88.1 Allergy status to other antibiotic agents
CPT/HCPCS: 36415; 71101; 73030; 74177; 76705; 80047; 99284; Q9967

== ENCOUNTER → 2020-01-28 | Outpatient (REF) | payer OTHER ==
[~2020-01-28] MED LIST changes: +FARX1TAB3 PO; +FERR325T18 PO; -METF-699 PO; +METF-817 PO; +TOUJ1.2I SC; +TYLETAB14 PO
[2020-01-28 15:52] LABS: CREATININE, URINE 78.7 MG/DL; MALB URINE SIEMENS 25.1 MG/L; MAU/CREAT RATIO 31.8 MCG/MG (0.0-30.0)
== END ==
LOC: M LAB REF 15:02
PROVIDERS: ATTEND Nurse Practitioner Family
DX: E11.9 Type 2 diabetes mellitus without complications (principal)

== ENCOUNTER → 2020-02-21 | Outpatient (CLI) | payer BC, OTHER ==
--- NOTE | 2020-04-14 13:50 | REP ---
MRI RIGHT SHOULDER HISTORY: Fall 01/24/2020, with pain. TECHNIQUE: Multiple sequences obtained in the axial, coronal, and sagittal planes. FINDINGS: There is a partial tear of the supraspinatus tendon and the subscapularis tendon. There is mild subacromial spurring. There is mild marrow edema in the distal end of the clavicle and mild fluid in the acromioclavicular joint, which is well-aligned. The acromion is type 2. The biceps tendon is within the bicipital groove with no tenosynovitis. There is no Hill-Sachs defect. The deltoid muscle demonstrates no abnormal signal. There is fraying of the biceps labral complex. I suspect a posterior labral tear. No other abnormal marrow signal is seen. Very small amount of fluid is seen in the subacromial-subdeltoid bursa. There is mild chondromalacia of the glenohumeral joint. IMPRESSION: Partial tears of the supraspinatus and subscapularis tendons. Mild subacromial spurring. There is fraying of the biceps labral complex and I suspect a posterior labral tear. There is a very small amount of fluid in the subacromial- subdeltoid bursa. There is mild marrow edema in the distal clavicle with good alignment of the acromioclavicular joint. [facility]
== END ==
LOC: M RAD 09:30
PROVIDERS: ATTEND Orthopaedic Surgery Sports Medicine
DX: M25.511 Pain in right shoulder (principal)

== ENCOUNTER → 2020-07-20 | Outpatient (CLI) | payer SELFPAY | LOC: M LABSMTC 10:41 | PROVIDERS: ATTEND Pediatrics | DX: Z20.828 Contact with and (suspected) exposure to other viral communicable diseases (principal) ==

== ENCOUNTER → 2021-03-06 | Outpatient (REF) | payer BC, OTHER ==
[2021-03-06 13:20] LABS: ALBUMIN 4.3 GM/DL (3.2-5.2); ALT/SGPT 111 U/L (12-78); BILIRUBIN,TOTAL 0.2 MG/DL (0.2-1.0); BLOOD UREA NITROGEN 19 MG/DL (7-18); CALCIUM LEVEL 10.3 MG/DL (8.5-10.1); CARBON DIOXIDE LEVEL 28 MEQ/L (21-32); CHLORIDE LEVEL 102 MEQ/L (98-107); CHOLESTEROL LEVEL 214 MG/DL (<200); CHOLESTEROL RISK RATIO 4.863 (<5); CREATININE FOR GFR 0.91 MG/DL (0.70-1.30); GLOMERULAR FILTRATION RATE > 60.0 (>56); GLUCOSE, FASTING 199 MG/DL (70-100); HDL CHOLESTEROL 44 MG/DL (>40); LDL CHOLESTEROL 122 MG/DL (<100); NON-HDL-C 170 MG/DL; POTASSIUM SERUM 5.2 MEQ/L (3.5-5.1); SODIUM LEVEL 136 MEQ/L (136-145); TOTAL PROTEIN 8.2 GM/DL (6.4-8.2); TRIGLYCERIDES LEVEL 238 MG/DL (<150)
[2021-03-06 13:24] LABS: MALB URINE SIEMENS 57.5 MG/L; MAU/CREAT RATIO 59.2 MCG/MG (0.0-30.0)
== END ==
LOC: M LABDRWAD 12:17
PROVIDERS: ATTEND Nurse Practitioner Family
DX: E78.2 Mixed hyperlipidemia (principal); E11.9 Type 2 diabetes mellitus without complications

== ENCOUNTER → 2022-01-25 | Outpatient (REF) | payer OTHER ==
[2022-01-25 12:59] LABS: BASO # 0.2 10^3/uL (0.0-0.2); BASO % 1.4 % (0.0-1.0); EOS # 0.3 10^3/uL (0.0-0.5); EOS % 3.3 % (0.0-3.0); HEMATOCRIT 45.1 % (42.0-52.0); LYMPH # 3.1 10^3/uL (1.5-5.0); LYMPH % 29.4 % (24.0-44.0); MEAN CORPUSCULAR HEMOGLOBIN 28.9 pg (27.0-33.0); MEAN CORPUSCULAR VOLUME 93.2 fl (80.0-96.0); MONO # 1.3 10^3/uL (0.0-0.8); MONO % 12.5 % (2.0-8.0); NEUTROPHILS # 5.5 10^3/uL (1.5-8.5); PLATELET COUNT, AUTOMATED 382 10^3/uL (150-450); RED BLOOD COUNT 4.84 10^6/uL (4.30-6.10); WHITE BLOOD COUNT 10.4 10^3/uL (4.0-10.0)
[2022-01-25 13:40] LABS: ALBUMIN 3.9 GM/DL (3.2-5.2); ALT/SGPT 181 U/L (12-78); BILIRUBIN,TOTAL 0.6 MG/DL (0.2-1.0); BLOOD UREA NITROGEN 14 MG/DL (7-18); CALCIUM LEVEL 9.9 MG/DL (8.5-10.1); CARBON DIOXIDE LEVEL 30 MEQ/L (21-32); CHLORIDE LEVEL 96 MEQ/L (98-107); CHOLESTEROL LEVEL 308 MG/DL (<200); CHOLESTEROL RISK RATIO 5.923 (<5); CREATININE FOR GFR 0.96 MG/DL (0.70-1.30); FREE T4 1.05 NG/DL (0.76-1.46); GLOMERULAR FILTRATION RATE > 60.0 (>56); GLUCOSE, FASTING 389 MG/DL (70-100); HDL CHOLESTEROL 52 MG/DL (>40); LDL CHOLESTEROL 220 MG/DL (<100); NON-HDL-C 256 MG/DL; POTASSIUM SERUM 4.9 MEQ/L (3.5-5.1); SODIUM LEVEL 131 MEQ/L (136-145); TOTAL PROTEIN 7.9 GM/DL (6.4-8.2); TRIGLYCERIDES LEVEL 182 MG/DL (<150)
== END ==
LOC: M SFHCADAM 08:49
PROVIDERS: ATTEND Physician Assistant
DX: D50.9 Iron deficiency anemia, unspecified (principal); E83.52 Hypercalcemia; I10 Essential (primary) hypertension; Z90.81 Acquired absence of spleen; E11.9 Type 2 diabetes mellitus without complications; E78.2 Mixed hyperlipidemia; G47.33 Obstructive sleep apnea (adult) (pediatric)

== ENCOUNTER → 2022-04-30 | Outpatient (REF) | payer OTHER ==
[2022-04-30 18:40] LABS: CREATININE, URINE 58.2 MG/DL; MALB URINE SIEMENS 18.6 MG/L; MAU/CREAT RATIO 31.9 MCG/MG (0.0-30.0)
== END ==
LOC: M LAB REF 17:29
PROVIDERS: ATTEND Nurse Practitioner Family
DX: E11.9 Type 2 diabetes mellitus without complications (principal)

== ENCOUNTER → 2022-07-29 | Outpatient (REF) | payer OTHER ==
[2022-07-29 14:31] LABS: FREE T4 0.98 NG/DL (0.89-1.76); THYROID STIMULATING HORMONE 6.034 uIU/ML (0.55-4.78)
[2022-07-29 14:37] LABS: VITAMIN B12 LEVEL 445 PG/ML (211-911)
[2022-07-29 14:51] LABS: ALBUMIN 4.1 G/DL (3.2-5.2); ALKALINE PHOSPHATASE 88 U/L (46-116); ALT/SGPT 79 U/L (7.0-40); AST/SGOT 28 U/L (<34); BILIRUBIN,TOTAL 0.5 MG/DL (0.3-1.2); BLOOD UREA NITROGEN 21 MG/DL (9-23); CALCIUM LEVEL 10.2 MG/DL (8.5-10.1); CARBON DIOXIDE LEVEL 30 MMOL/L (20-31); CHLORIDE LEVEL 96 MMOL/L (98-107); CHOLESTEROL LEVEL 179 MG/DL (<200); CHOLESTEROL RISK RATIO 3.73 (<5); CREATININE FOR GFR 0.74 MG/DL (0.70-1.30); FOLATE > 24.0 NG/ML (>5.4); GLOMERULAR FILTRATION RATE > 60.0 (>56); GLUCOSE, FASTING 221 MG/DL (60-100); HDL CHOLESTEROL 47.9 MG/DL (>40); LDL CHOLESTEROL 90.3 MG/DL (<100); NON-HDL-C 131 MG/DL; POTASSIUM SERUM 5.5 MMOL/L (3.5-5.1); SODIUM LEVEL 136 MMOL/L (136-145); TOTAL PROTEIN 7.7 G/DL (5.7-8.2); TRIGLYCERIDES LEVEL 204 MG/DL (<150)
== END ==
LOC: M SFHCADAM 08:39
PROVIDERS: ATTEND Physician Assistant
DX: E78.2 Mixed hyperlipidemia (principal); E11.9 Type 2 diabetes mellitus without complications; I10 Essential (primary) hypertension; Z12.5 Encounter for screening for malignant neoplasm of prostate
CPT/HCPCS: 80053; 80061; 82607; 82746; 84439; 84443; G0103

== ENCOUNTER 2023-07-25 06:46 | Day surgery (SDC) | payer BC, OTHER ==
[~2023-07-25] VITALS: Ht 167.6 cm; Wt 103.1 kg
[~2023-07-25 06:46] MED LIST changes: +ATOR40TA75 PO; +INSU100I24 SC; +NS 1,000 ML IV ONE; +TIRZ5PEN SC
[2023-07-25] MEDS ORDERED: propofoL 200 MG/20 ML VIAL As Ordered ONE (07:05)
[2023-07-25] MEDS ORDERED: LIDOCAINE 2% 100MG/5ML SDV (FOR ANES.) As Ordered ONE (07:05)
[2023-07-25] MEDS ORDERED: GLUCAGON INJ 1MG VIAL As Ordered ONE ×2 (07:45→07:53)
[2023-07-25] MEDS ORDERED: PHENYLephrine 500MCG 5ML (100MCG/ML) SYRINGE As Ordered ONE (07:50)
[2023-07-25 08:03] VITALS: TEMP 97.7
[2023-07-25 08:23] VITALS: BP 145/74; O2SAT 96
== END 2023-07-25 08:25 | disposition home or self-care (01) ==
LOC: M OPP 06:46
PROVIDERS: ATTEND Internal Medicine Gastroenterology
DX: Z12.11 Encounter for screening for malignant neoplasm of colon (principal); K63.5 Polyp of colon; K64.8 Other hemorrhoids; K57.30 Diverticulosis of large intestine without perforation or abscess without bleeding; G47.30 Sleep apnea, unspecified; Z99.89 Dependence on other enabling machines and devices; E11.9 Type 2 diabetes mellitus without complications; Z79.02 Long term (current) use of antithrombotics/antiplatelets; Z79.4 Long term (current) use of insulin; Z79.82 Long term (current) use of aspirin; Z79.899 Other long term (current) drug therapy; Z88.0 Allergy status to penicillin; Z88.1 Allergy status to other antibiotic agents; Z88.8 Allergy status to other drugs, medicaments and biological substances
CPT/HCPCS: 45385; 88305; J1610; J2371

== ENCOUNTER → 2023-12-23 | Outpatient (REF) | payer BC ==
[~2023-12-23] MED LIST changes: +BYST1TAB2 PO; -BYST5TAB2 PO; +IRBE150T27 PO; -IRBE150T7 PO; -NS 1,000 ML IV ONE
[2023-12-23 13:14] LABS: HEMOGLOBIN 14.4 g/dl (13.5-17.5); MEAN CORPUSCULAR HGB CONC 31.3 g/dl (32.0-36.5); MEAN CORPUSCULAR VOLUME 92.6 fl (80.0-96.0); PLATELET COUNT, AUTOMATED 361 10^3/uL (150-450); RED BLOOD COUNT 4.97 10^6/uL (4.30-6.10); WHITE BLOOD COUNT 9.9 10^3/uL (4.0-10.0)
[2023-12-23 13:47] LABS: PSA SCREENING 0.56 NG/ML (< 4.00)
[2023-12-23 13:51] LABS: ALKALINE PHOSPHATASE 81 U/L (46-116); ALT/SGPT 45 U/L (7.0-40); AST/SGOT 22 U/L (<34); BILIRUBIN,TOTAL 0.3 MG/DL (0.3-1.2); BLOOD UREA NITROGEN 23 MG/DL (9-23); CARBON DIOXIDE LEVEL 26 MMOL/L (20-31); CHLORIDE LEVEL 102 MMOL/L (98-107); CREATININE FOR GFR 0.76 MG/DL (0.70-1.30); GLOMERULAR FILTRATION RATE > 60.0 (>56); GLUCOSE, FASTING 258 MG/DL (60-100); POTASSIUM SERUM 5.2 MMOL/L (3.5-5.1); SODIUM LEVEL 137 MMOL/L (136-145); TOTAL PROTEIN 7.8 G/DL (5.7-8.2)
== END ==
LOC: M SFHCADAM 08:01
PROVIDERS: ATTEND Physician Assistant
DX: Z12.5 Encounter for screening for malignant neoplasm of prostate (principal); E11.9 Type 2 diabetes mellitus without complications; E78.2 Mixed hyperlipidemia; Z12.11 Encounter for screening for malignant neoplasm of colon; K76.0 Fatty (change of) liver, not elsewhere classified
CPT/HCPCS: 80053; 85027; G0103

== ENCOUNTER → 2024-11-12 | Outpatient (REF) | payer BC ==
[~2024-11-12] MED LIST changes: +GLIP-320 PO; +GLIP10TA15 PO; -GLIP10TA18 PO; -GLIP10TA6 PO; +METF-1156 PO; -METF-817 PO
[2024-11-12 14:33] LABS: ALBUMIN 3.9 G/DL (3.2-5.2); ALKALINE PHOSPHATASE 84 U/L (40-129); ALT/SGPT 45 U/L (7.0-40); AST/SGOT 21 U/L (<34); BILIRUBIN,TOTAL 0.4 MG/DL (0.3-1.2); BLOOD UREA NITROGEN 21 MG/DL (9-23); CALCIUM LEVEL 9.7 MG/DL (8.5-10.1); CARBON DIOXIDE LEVEL 27 MMOL/L (20-31); CHLORIDE LEVEL 99 MMOL/L (98-107); CHOLESTEROL LEVEL 193 MG/DL (<200); CHOLESTEROL RISK RATIO 4.56 (<5); CREATININE FOR GFR 0.66 MG/DL (0.70-1.30); CREATININE, URINE 91.6 MG/DL; GLOMERULAR FILTRATION RATE > 90.0 (>56); GLUCOSE, FASTING 264 MG/DL (60-100); HDL CHOLESTEROL 42.3 MG/DL (>40); LDL CHOLESTEROL 108.5 MG/DL (<100); MAU/CREAT RATIO 328.6 MCG/MG (0.0-30.0); NON-HDL-C 150.7 MG/DL; POTASSIUM SERUM 4.7 MMOL/L (3.5-5.1); SODIUM LEVEL 135 MMOL/L (136-145); TOTAL PROTEIN 7.7 G/DL (5.7-8.2); TRIGLYCERIDES LEVEL 211 MG/DL (<150)
== END ==
LOC: M LABDRWAD 12:55
PROVIDERS: ATTEND Nurse Practitioner Family
DX: E78.2 Mixed hyperlipidemia (principal); E11.9 Type 2 diabetes mellitus without complications

== ENCOUNTER → 2025-04-18 | Outpatient (REF) | payer BC ==
[2025-04-18 15:13] LABS: BASO # 0.2 10^3/uL (0.0-0.2); BASO % 1.4 % (0.0-1.0); EOS # 0.3 10^3/uL (0.0-0.5); EOS % 2.9 % (0.0-3.0); LYMPH # 3.3 10^3/uL (1.5-5.0); LYMPH % 30.8 % (24.0-44.0); MONO # 1.2 10^3/uL (0.0-0.8); MONO % 10.9 % (2.0-8.0); NEUTROPHILS # 5.9 10^3/uL (1.5-8.5); NEUTROPHILS % 53.7 % (36.0-66.0); PLATELET COUNT, AUTOMATED 366 10^3/uL (150-450)
[2025-04-18 15:16] LABS: ALT/SGPT 44 U/L (7.0-40); AST/SGOT 23 U/L (<34); CALCIUM LEVEL 9.6 MG/DL (8.5-10.1); CARBON DIOXIDE LEVEL 26 MMOL/L (20-31); CHLORIDE LEVEL 98 MMOL/L (98-107); CHOLESTEROL LEVEL 175 MG/DL (<200); CHOLESTEROL RISK RATIO 4.44 (<5); CREATININE FOR GFR 0.85 MG/DL (0.70-1.30); GLOMERULAR FILTRATION RATE > 90.0 (>56); LDL CHOLESTEROL 104.2 MG/DL (<100); NON-HDL-C 135.6 MG/DL; POTASSIUM SERUM 5.0 MMOL/L (3.5-5.1); PSA SCREENING 0.58 NG/ML (< 4.00); SODIUM LEVEL 136 MMOL/L (136-145); TRIGLYCERIDES LEVEL 157 MG/DL (<150)
[2025-04-18 15:17] LABS: VITAMIN B12 LEVEL 463 PG/ML (211-911)
[2025-04-18 15:18] LABS: FREE T4 1.27 NG/DL (0.89-1.76)
== END ==
LOC: M SFHCADAM 08:53
PROVIDERS: ATTEND Physician Assistant
DX: K75.81 Nonalcoholic steatohepatitis (NASH) (principal); Z23 Encounter for immunization; Z90.81 Acquired absence of spleen; E11.9 Type 2 diabetes mellitus without complications; Z12.5 Encounter for screening for malignant neoplasm of prostate
CPT/HCPCS: 80053; 80061; 82607; 82746; 84439; 84443; 85025; G0103

== ENCOUNTER → 2025-06-22 | Outpatient (REF) | payer BC ==
[~2025-06-22] MED LIST changes: +FURO20TA2 PO; +IRBE75TA11 PO; +TIRZ10PE
[2025-06-22 14:29] LABS: ALT/SGPT 36 U/L (7.0-40); AST/SGOT 19 U/L (<34); CALCIUM LEVEL 9.2 MG/DL (8.5-10.1); CARBON DIOXIDE LEVEL 26 MMOL/L (20-31); CHLORIDE LEVEL 100 MMOL/L (98-107); CREATININE FOR GFR 0.74 MG/DL (0.70-1.30); GLOMERULAR FILTRATION RATE > 90.0 (>56); POTASSIUM SERUM 5.9 MMOL/L (3.5-5.1); SODIUM LEVEL 134 MMOL/L (136-145)
[2025-06-22 14:40] LABS: BASO # 0.1 10^3/uL (0.0-0.2); BASO % 1.1 % (0.0-1.0); EOS # 0.2 10^3/uL (0.0-0.5); EOS % 2.2 % (0.0-3.0); LYMPH # 3.0 10^3/uL (1.5-5.0); LYMPH % 30.5 % (24.0-44.0); MONO # 1.1 10^3/uL (0.0-0.8); MONO % 11.2 % (2.0-8.0); NEUTROPHILS # 5.3 10^3/uL (1.5-8.5); NEUTROPHILS % 54.5 % (36.0-66.0); PLATELET COUNT, AUTOMATED 346 10^3/uL (150-450)
== END ==
LOC: M SFHCADAM 09:53
PROVIDERS: ATTEND Family Medicine
DX: Z01.818 Encounter for other preprocedural examination (principal)

== ENCOUNTER → 2025-06-29 | Outpatient (REF) | payer BC ==
[2025-06-29 14:08] LABS: ALT/SGPT 45 U/L (7.0-40); AST/SGOT 32 U/L (<34); CALCIUM LEVEL 9.7 MG/DL (8.5-10.1); CARBON DIOXIDE LEVEL 28 MMOL/L (20-31); CHLORIDE LEVEL 98 MMOL/L (98-107); CREATININE FOR GFR 0.81 MG/DL (0.70-1.30); GLOMERULAR FILTRATION RATE > 90.0 (>56); POTASSIUM SERUM 4.9 MMOL/L (3.5-5.1); SODIUM LEVEL 136 MMOL/L (136-145)
== END ==
LOC: M SFHCADAM 08:57
PROVIDERS: ATTEND Family Medicine
DX: E87.5 Hyperkalemia (principal)